=== PATIENT | male | born 1935 | race Caucasian/White ===

== ENCOUNTER 2018-08-14 18:35 | Inpatient (IN) ==
--- OUTSIDE RECORDS SUMMARY | 2018-08-14 18:38 | External Medical Summary | Continuity of Care Document ---
:1935 Author Name Akash Funez Address Unavailable Unavailable , Care Team Providers Name Role Phone Damir Funez Unavailable [email or web address] Unavailable Unavailable Unavailable Unavailable Unavailable Assessments Assessed Problems:Cerumen impaction Problems Cerumen impaction (380.4) (H61.20) Allergies and Adverse Reactions No Known Drug Allergies (Allergy) Medications RisperDAL 0.5 MG Oral Tablet Start: Refills: 0 Atenolol 25 MG Oral Tablet Start: Refills: 0 Pravastatin Sodium 20 MG Oral Tablet; TAKE 1 TABLET DAILY. Start: 16-Mar-2012 Refills: 0 Aspirin Low Dose 81 MG TABS; TAKE 1 TABLET DAILY. Start: 16-Mar-2012 Refills: 0 Procedures Procedures not documented Immunizations Td On: 10-Dec-1993 Td On: 23-Jul-2005 Social History - Smoking Status Current every day smoker Interventions Discussion/SummaryBilateral cerumen impaction irrigated and resolved. The right TM does have a clear effusion with air-fluid levels. Not concerning for otitis media at this time. Possible eustachian tube dysfunction. Patient is to monitor symptoms and follow-up his hearing does not improve. His also follow up sooner ifyou're pain develops or hearing issues worsen. Plan of Treatment Planned Observations Planned Goals not documented Results No Known Results Results not documented Encounters Appointment; Guero Reich M.D. 13-Aug-2014 15:00 Encounter Diagnosis: Problem not documented
--- NOTE | 2018-08-14 19:32 | XRay Report ---
XR chest 1V portable CLINICAL HISTORY: agitation COMPARISON STUDY: 04/17/2013 FINDINGS: The heart is enlarged. There is aortic tortuosity/ectasia. There is mild vascular prominenc e without evidence of overt failure. There is a suspected small right pleural effusion.[ IMPRESSION: Mild cardiomegaly. Small right pleural effusion. No evidence of lobar consolidation. Electronically signed by: Francisco Maher M.D. 08/14/2018 7:30 PM
[2018-08-14 19:44] LABS: Basophils # (auto) 0.04 K/uL (0-0.2); Basophils % (auto) 0.6 %; Eosinophils # (auto) 0.14 K/uL (0-0.5); Eosinophils % (auto) 2.2 %; Hematocrit (blood only) 36.8 % (42-52); Hemoglobin 11.9 g/dL (14.0-18.0); Immature Granulocytes # (auto) 0.02 K/uL (0.00-0.02); Immature Granulocytes % (auto) 0.3 %; Lymphocytes # (auto) 1.01 K/uL (1.2-3.4); Lymphocytes % (auto) 16.1 %; Mean Corpuscular Hgb Conc 32.3 g/dL (32-36); Mean Corpuscular Volume 85.4 fL (80-100); Mean Platelet Volume 11.8 fL (7.4-10.4); Monocytes # (auto) 0.59 K/uL (0.11-0.59); Monocytes % (auto) 9.4 %; Neutrophils # (auto) 4.48 K/uL (1.4-6.5); Neutrophils % (auto) 71.4 %; Platelet Count 174 K/uL (130-400); RDW Coefficient of Variation 15.3 % (11.5-14.5); RDW Standard Deviation 48.4 fL (36.4-46.3); Red Blood Count 4.31 M/uL (4.7-6.1); White Blood Count 6.28 K/uL (4.8-10.8)
--- NOTE | 2018-08-14 19:54 | CT Scan Report ---
CT head/brain wo con CLINICAL HISTORY: agitation ACUTE CHANGE IN MENTAL STATUS, CONFUSION. COMPARISON STUDY: No previous studies for comparison. TECHNIQUE: Axial CT of the brain is performed from the vertex to the skull base. IV contrast was not administered for this examination. A dose lowering technique was utilized adhering to the principles of ALARA. CT DOSE: 630.32 mGycm FINDINGS: No intra or extra-axial mass lesions are visualized. There is no CT evidence of acute cortical infarc tion. There is no evidence of midline shift. There is no acute hemorrhage. No calvarial fractures ar e visualized. There are bilateral extensive white matter hypodensities likely on a small vessel basis. 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 There is no evidence of acute sinusitis. There are left scleral calcifications. IMPRESSION: No acute intracranial findings Electronically signed by: Francisco Maher M.D. 08/14/2018 7:53 PM
[2018-08-14 20:02] LABS: Alanine Aminotransferase 7 U/L (12-78); Albumin Level 3.4 gm/dl (3.4-5.0); Aspartate Aminotransferase 8 U/L (15-37); BUN Creatinine Ratio 13.6 (10-20); Blood Urea Nitrogen 13 mg/dl (7-18); Calcium 8.1 mg/dl (8.5-10.1); Carbon Dioxide 29 mmol/L (21-32); Chloride 108 mmol/L (98-107); Est GFR (African American) 87.8; Est GFR (Non-African American) 75.7; Glucose 105 mg/dl (70-99); Potassium 3.8 mmol/L (3.5-5.1); Sodium 140 mmol/L (136-145)
[2018-08-14 20:10] LABS: Salicylate < 1.7 mg/dl (2.8-20)
[2018-08-14 20:12] LABS: Albumin Globulin Ratio 0.9 (0.9-2); Alkaline Phosphatase 102 U/L (45-117); Bilirubin,Total 0.7 mg/dl (0.2-1); Globulin 3.8 gm/dl (2.5-4.0); Total Protein 7.2 gm/dl (6.4-8.2)
[2018-08-14 20:15] LABS: Acetaminophen < 2 ug/ml (10-30)
[2018-08-14 20:42] LABS: Appearance Urine Clear (Clear); Bacteria Urine Automated Negative (Negative); Bilirubin Urine Negative (Negative); Blood Urine Negative (Negative); Color Urine Dark Yellow; Glucose Urine UA Negative (Negative); Ketones Urine Trace (Negative); Leukocyte Esterase Urine Negative (Negative); Nitrite Urine Negative (Negative); Protein Urine Trace (Negative); RBC Urine Automated 0-4 /hpf (0-4); Specific Gravity Urine 1.028 (1.000-1.030); Urobilinogen Urine Negative (Negative); pH Urine 6.5 (4.5-7.5)
[2018-08-14 20:57] LABS: Amphetamines+Metham, Urine Neg (Neg); Barbiturates, Urine Neg (Neg); Benzodiazepine, Urine Pos (Neg); Cocaine, Urine Neg (Neg); MDMA (Ecstacy), Urine Neg (Neg); Methadone, Urine Neg (Neg); Opiate, Urine Neg (Neg); Phencyclidine, Urine Neg (Neg)
[2018-08-14] MEDS ORDERED: HALOPERIDOL LACTATE 5 MG/ML 1 ML VIAL IM STA (23:27)
[2018-08-14] MEDS ORDERED: HALOPERIDOL LACTATE 5 MG/ML 1 ML VIAL IM PRN (23:42)
[2018-08-14] MEDS ORDERED: ALBUT/IPRATROP 3MG/0.5MG NEB 3 ML VIAL NEB PRN (23:42)
--- NOTE | 2018-08-15 00:02 | Emergency Department Note ---
Entered by Koffi Beltran acting as a scribe for Chintan Grajeda M.D. History of Present Illness General Chief complaint: Mental Health Evaluation Stated complaint: MHID Source: EMS and RN notes reviewed Limitations: altered mental status (dementia) History of Present Illness Provider complaint: Mental Health Evaluation Onset (ago): unknown Location: left and right Relieved By: + none Associated symptoms: + confusion Treatments prior to arrival: other (2.5 Versed IM) The patient is a 82 year old male with a history of dementia and COPD who presents to the Emergency Room for a mental health evaluation. Patient's called the help line due to the patient becoming combative and going to the bathroom in different areas of the house. The patient's expressed concern that the patient was going to hurt her. The sates that she does not feel comfortable at home with him due to his fits of rage. Per EMS, the patient was given 2.5 Versed IM en route. The HPI is limited due to AMS. The patient states that he "wants someone to kill" him. Home Medications Home Medications Medication Instructions Recorded Confirmed Type risperidone 0.25 mg PO BID 08/14/18 08/14/18 History Allergies Allergy/AdvReac Type Severity Reaction Status Date / Time barley Allergy Severe ANAPHYLAXIS Verified 08/14/18 20:23 donepezil Allergy Unknown Unknown Verified 08/14/18 20:23 Past Med/Surg History Medical History COPD (chronic obstructive pulmonary disease) Dementia Social History Feels Safe at Home: Yes Smoking Status: Unknown if ever smoked Review of Systems See HPI for pertinent positives & negatives. Unobtainable due to mental health condition Physical Exam Vital Signs Vital Signs - 24 hr 08/14/18 18:42 08/14/18 20:24 08/14/18 22:33 Temperature 37 C Temperature Source Axillary Sepsis Recent Fever Within 48 Hours No Sepsis Action Taken by Nursing No Action Required Pulse Rate 98 H Pulse Rate [Radial] 74 74 Pulse Rhythm Regular Pulse Rhythm [Radial] Regular Regular Pulse Strength Normal Respiratory Rate 22 16 16 Respiratory Effort / Characteristics Non-Labored Spontaneous Non-Labored Non-Labored Respiratory Depth Normal Normal Normal Respiratory Pattern Regular Regular Regular Blood Pressure 159/89 H Blood Pressure [Right Arm] 156/89 H 162/98 H Blood Pressure Mean 112 Blood Pressure Mean [Right Arm] 111 119 Blood Pressure Position Lying Pulse Oximetry 98 99 99 Oxygen Delivery Method Room Air Room Air Room Air GENERAL: Awake, alert but not oriented, limited verbal interaction, repositioning in bed, in no distress. PSYCH: Patient asking for someone to kill him, patient refused further questions. HENT: Normocephalic, atraumatic. EYES: PERRL. Normal conjunctiva. Sclera non-icteric. NECK: Supple. No nuchal rigidity. RESPIRATORY: Clear to auscultation. No wheezes. Normal respiratory effort. CARDIAC: Normal rate. Normal rhythm. Extremities warm and well perfused. GI: Soft, non-distended. No tenderness to palpation. No rebound or guarding. RECTAL: Deferred. MUSCULOSKELETAL: Atraumatic. Chest examination reveals no tenderness. There is no CVA tenderness to palpation. LOWER EXTREMITIES: Calves are equal size bilaterally and non-tender. No edema NEURO: No motor deficits noted. No facial droop. SKIN: Warm and dry. No jaundice noted. Scattered moles and keloids on back Course 1843: The patient was evaluated in room A07. A complete history and physical exam were not able to be obtained due to AMS. 2136: I discussed the patients case [facility]. He will evaluate the patient for further management. Consultations Consultation #1: [id number]: I discussed the patients case with Dr. Caridad Hay. He will evaluate the patient for further management. Time: 21:37 Administered Medications Discontinued Medications Haloperidol Lactate (Haldol) 2.5 mg IM NOW STA Stop: 08/14/18 23:28 Last Admin: 08/14/18 23:30 Dose: 2.5 mg Documented by: [id number] Medical Decision Making Differential Diagnosis Differential diagnosis: Etiologies such as mood disorder, infection, hypoglycemia, electrolyte abnormalities, cardiac sources, intracerebral event, toxicologic, neurologic, as well as others were entertained. Medical Records Attestation: I reviewed the patient's medical records. Home Medications Current Medication List: was personally reviewed by me Laboratory Data Attestation: I reviewed the patient's lab results. Result diagrams: 08/14/18 19:27 08/14/18 19:27 Lab Results 08/14/18 08/14/18 08/14/18 Range/Units 19:27 19:27 19:27 WBC 6.28 (4.8-10.8) K/uL RBC 4.31 L (4.7-6.1) M/uL Hgb 11.9 L (14.0-18.0) g/dL Hct 36.8 L (42-52) % MCV 85.4 (80-100) fL MCH 27.6 (25-34) pg MCHC 32.3 (32-36) g/dL RDW Std Deviation 48.4 H (36.4-46.3) fL RDW Coeff of Dk 15.3 H (11.5-14.5) % Plt Count 174 (130-400) K/uL MPV 11.8 H (7.4-10.4) fL Immature Gran % (Auto) 0.3 % Neut % (Auto) 71.4 % Lymph % (Auto) 16.1 % Woodson % (Auto) 9.4 % Eos % (Auto) 2.2 % Baso % (Auto) 0.6 % Immature Gran # (Auto) 0.02 (0.00-0.02) K/uL Neut # (Auto) 4.48 (1.4-6.5) K/uL Lymph # (Auto) 1.01 L (1.2-3.4) K/uL Woodson # (Auto) 0.59 (0.11-0.59) K/uL Eos # (Auto) 0.14 (0-0.5) K/uL Baso # (Auto) 0.04 (0-0.2) K/uL Sodium 140 (136-145) mmol/L Potassium 3.8 (3.5-5.1) mmol/L Chloride 108 H (98-107) mmol/L Carbon Dioxide 29 (21-32) mmol/L Anion Gap 3.0 (3-11) BUN 13 (7-18) mg/dl Creatinine 0.94 (0.6-1.4) mg/dl Est Cr Clr Drug Dosing Not Reportable Est GFR ( Amer) 87.8 Est GFR (Non-Af Amer) 75.7 BUN/Creatinine Ratio 13.6 (10-20) Glucose 105 H (70-99) mg/dl Calcium 8.1 L (8.5-10.1) mg/dl Total Bilirubin 0.7 (0.2-1) mg/dl AST 8 L (15-37) U/L ALT 7 L (12-78) U/L Alkaline Phosphatase 102 (45-117) U/L Total Protein 7.2 (6.4-8.2) gm/dl Albumin 3.4 (3.4-5.0) gm/dl Globulin 3.8 (2.5-4.0) gm/dl Albumin/Globulin Ratio 0.9 (0.9-2) TSH 1.450 (0.300-4.500) uIu/ml Urine Color Urine Appearance (Clear) Urine pH (4.5-7.5) Ur Specific [place] (1.000-1.030) Urine Protein (Negative) Urine Glucose (UA) (Negative) Urine Ketones (Negative) Urine Blood (Negative) Urine Nitrite (Negative) Urine Bilirubin (Negative) Urine Urobilinogen (Negative) Ur Leukocyte Esterase (Negative) Urine WBC (Auto) (0-5) /hpf Urine RBC (Auto) (0-4) /hpf U Hyaline Cast (Auto) (0-5) /lpf U Epithel Cells (Auto) (0-5) /lpf Urine Bacteria (Auto) (Negative) Salicylates < 1.7 L (2.8-20) mg/dl Urine Opiates Screen (Neg) Ur Methadone, Qual (Neg) Acetaminophen < 2 L (10-30) ug/ml Urine Barbiturates (Neg) Ur Phencyclidine (PCP) (Neg) U Amphetamin/Meth Scrn (Neg) MDMA (Ecstasy) Screen (Neg) U Benzodiazepines Scrn (Neg) Ur Cocaine Metabolite (Neg) U Marijuana (THC) Screen (Neg) Ethyl Alcohol mg/dL (0-3) mg/dl 08/14/18 08/14/18 08/14/18 Range/Units 19:27 20:19 20:19 WBC (4.8-10.8) K/uL RBC (4.7-6.1) M/uL Hgb (14.0-18.0) g/dL Hct (42-52) % MCV (80-100) fL MCH (25-34) pg MCHC (32-36) g/dL RDW Std Deviation (36.4-46.3) fL RDW Coeff of Dk (11.5-14.5) % Plt Count (130-400) K/uL MPV (7.4-10.4) fL Immature Gran % (Auto) % Neut % (Auto) % Lymph % (Auto) % Woodson % (Auto) % Eos % (Auto) % Baso % (Auto) % Immature Gran # (Auto) (0.00-0.02) K/uL Neut # (Auto) (1.4-6.5) K/uL Lymph # (Auto) (1.2-3.4) K/uL Woodson # (Auto) (0.11-0.59) K/uL Eos # (Auto) (0-0.5) K/uL Baso # (Auto) (0-0.2) K/uL Sodium (136-145) mmol/L Potassium (3.5-5.1) mmol/L Chloride (98-107) mmol/L Carbon Dioxide (21-32) mmol/L Anion Gap (3-11) BUN (7-18) mg/dl Creatinine (0.6-1.4) mg/dl Est Cr Clr Drug Dosing Est GFR ( Amer) Est GFR (Non-Af Amer) BUN/Creatinine Ratio (10-20) Glucose (70-99) mg/dl Calcium (8.5-10.1) mg/dl Total Bilirubin (0.2-1) mg/dl AST (15-37) U/L ALT (12-78) U/L Alkaline Phosphatase (45-117) U/L Total Protein (6.4-8.2) gm/dl Albumin (3.4-5.0) gm/dl Globulin (2.5-4.0) gm/dl Albumin/Globulin Ratio (0.9-2) TSH (0.300-4.500) uIu/ml Urine Color Dark Yellow Urine Appearance Clear (Clear) Urine pH 6.5 (4.5-7.5) Ur Specific [place] 1.028 (1.000-1.030) Urine Protein Trace H (Negative) Urine Glucose (UA) Negative (Negative) Urine Ketones Trace H (Negative) Urine Blood Negative (Negative) Urine Nitrite Negative (Negative) Urine Bilirubin Negative (Negative) Urine Urobilinogen Negative (Negative) Ur Leukocyte Esterase Negative (Negative) Urine WBC (Auto) 1-5 (0-5) /hpf Urine RBC (Auto) 0-4 (0-4) /hpf U Hyaline Cast (Auto) 1-5 (0-5) /lpf U Epithel Cells (Auto) 5-10 H (0-5) /lpf Urine Bacteria (Auto) Negative (Negative) Salicylates (2.8-20) mg/dl Urine Opiates Screen Neg (Neg) Ur Methadone, Qual Neg (Neg) Acetaminophen (10-30) ug/ml Urine Barbiturates Neg (Neg) Ur Phencyclidine (PCP) Neg (Neg) U Amphetamin/Meth Scrn Neg (Neg) MDMA (Ecstasy) Screen Neg (Neg) U Benzodiazepines Scrn Pos H (Neg) Ur Cocaine Metabolite Neg (Neg) U Marijuana (THC) Screen Neg (Neg) Ethyl Alcohol mg/dL < 3.0 (0-3) mg/dl Imaging Data Radiologist's Impression: Radiology results as stated below per my review and the radiologist's interpretation: XR chest 1V portable CLINICAL HISTORY: agitation COMPARISON STUDY: 04/17/2013 FINDINGS: The heart is enlarged. There is aortic tortuosity/ectasia. There is mild vascular prominence without evidence of overt failure. There is a suspected small right pleural effusion.[ IMPRESSION: Mild cardiomegaly. Small right pleural effusion. No evidence of lobar consolidation. Electronically signed by: Francisco Maher M.D. 08/14/2018 7:[address] head/brain wo con CLINICAL HISTORY: agitation ACUTE CHANGE IN MENTAL STATUS, CONFUSION. COMPARISON STUDY: No previous studies for comparison. TECHNIQUE: Axial CT of the brain is performed from the vertex to the skull base. IV contrast was not administered for this examination. A dose lowering technique was utilized adhering to the principles of ALARA. CT DOSE: 630.32 mGycm FINDINGS: No intra or extra-axial mass lesions are visualized. There is no CT evidence of acute cortical infarction. There is no evidence of midline shift. There is no acute hemorrhage. No calvarial fractures are visualized. There are bilateral extensive white matter hypodensities likely on a small vessel basis. 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 There is no evidence of acute sinusitis. There are left scleral calcifications. IMPRESSION: No acute intracranial findings Electronically signed by: Francisco Maher M.D. 08/14/2018 7:53 PM ECG Data Indication: altered mental status Rate (beats per minute): 100 Rhythm: normal sinus Findings: + PAC, + PVC and + RBBB; no ST depression and no ST elevation Blood Pressure Blood Pressure Findings: Elevated blood pressure Blood Pressure Disposition: further management by hospitalist SUE Narrative Patient is an 82-year-old gentleman presenting via a commitment due to actions at home and threats towards his . Can help was involved in the outpatient setting as well as police and EMS. Received a dose of Versed prior to arrival for mild sedation for his and EMS safety for transport. Patient is a history of Alzheimer's disease that has been worsening. No underlying psychiatric history has been reported. Patient has an additional medical history of COPD, c holecystectomy, carotid endarterectomy, cataract surgery, hypertension, and hyperlipidemia. Has been on Risperdal. Over the last several months significant decline urinating and defecating around the house. Fits of rage at home will tear up the bed and make threats towards his . states she does not feel she can care for him anymore and felt somewhat scared today. Patient on my exam states that he wants somebody to kill himself. Does not appear oriented but is limiting discussion here. No significant evidence of trauma. Medical clearance was completed including EKG, chest x-ray, head CT, urinalysis, basic laboratory studies. Psychiatric [employer] assisted in evaluation again the patient was priorly evaluated by can bailey. Patient's is here to provide additional information as well. Appears the patient has been declining and no acute medical reason for this size worsening dementia has been noted. Given his worsening behavior does not not safe to go home. Patient will require inpatient treatment for this worsening agitation and likely placement. Family is in agreement with the placement. Discussed with [employer] [employer] as well as the [facility] list. Will be admitted overnight with plans for further evaluation and placement. Impression & Plan Dementia, Agitation Discharge Plan Visit Data Chief Complaint: Mental Health Evaluation Stated Complaint: MHID ED Provider: Chintan Grajeda Discharge Problem: Dementia, Agitation Patient Disposition: Admitted As Inpatient Discharge Instructions Interventions: ED Discharge Assessment Last Done: 08/14/18 23:25 Discharge Problem: Dementia Qualifiers: Dementia type: unspecified type Dementia behavioral disturbance: with behavioral disturbance Qualified Code(s): F03.91 - Unspecified dementia with behavioral disturbance The scribe's documentation has been prepared under my direction and personally reviewed by me in its entirety. I confirm that the note above accurately reflects all work, treatment, procedures, and medical decision making performed by me.
--- NOTE | 2018-08-15 00:17 | History and Physical Report ---
DATE OF ADMISSION: 08/14/2018 CHIEF COMPLAINT: Dementia and agitation. HISTORY OF PRESENT ILLNESS: This is an 82-year-old male with past medical history significant for COPD, hyperlipidemia, hypertension, arthritis, anxiety, dementia, who lives with his , brought in because of increasing agitation at home. Patient has dementia for last 8 years, it is getting progressively worsened. The last few months he is getting more worse, getting agitated at home. used to shave his suarez and help him clean up, but he is not listening to her. As per daughter, last few months he is incontinent of urine and stool. He is defecating and urinating all over the house. cleans up everything and he is not listening when advised to go to commode. Laely, his appetite is also coming down. He just wants to eat cookies. Otherwise he swallows okay. No recent fever or chills. Daughter and say that he is otherwise very healthy. Patient is alert and awake, oriented to name only. Keeps on talking about his dad. He does not know his age, does know his 's name. Could not get any history from the patient.As per and daughter he is getting weak lately and ambulating holding things in the house. ALLERGIES: ADHESIVES. PAST MEDICAL HISTORY: As mentioned above. PAST SURGICAL HISTORY: Colonoscopy with biopsy, cataract surgery, laparoscopic cholecystectomy, right carotid endarterectomy. MEDICATIONS: Risperdal 2.5 mg p.o. b.i.d. FAMILY HISTORY: Mother had cervical cancer. Father had DC, diabetes. Sister had cerebral aneurysm. SOCIAL HISTORY: , currently lives with his . Smoked 0.75 packs a day for 25 years. As per records, no history of alcohol abuse. No drug use. REVIEW OF SYMPTOMS: As per HPI. Could not get any review of systems. PHYSICAL EXAMINATION: GENERAL: The patient is alert and awake, oriented to name only. Confused. VITAL SIGNS: Temperature 37, pulse 74, respiratory rate 16, blood pressure 162/98, oxygen 99% on room air. HEENT: No pallor, no icterus. NECK: No neck masses. CARDIOVASCULAR: S1, S2 heard. Regular rate and rhythm, no murmur, no gallop. RESPIRATORY SYSTEM: Normal AP diameter. No accessory muscle use. No wheezing, no crackles. ABDOMEN: Soft, bowel sounds present. Nontender. No distention. CENTRAL NERVOUS SYSTEM: Oriented to name only. Moves extremities. EXTREMITIES: No edema, no erythema seen. LABORATORIES: WBC 6.2, hemoglobin 11.9, hematocrit 36.8, platelets 174. Sodium 140, potassium 3.8, chloride 108, bicarbonate 29, BUN 13, creatinine 0.9, serum glucose 105, calcium 8.1, total bilirubin 0.7, AST 8, ALT 7, alkaline phosphatase 102. TSH 1.4. Urinalysis negative. Toxicology screen, salicylate less than 1.7, acetaminophen less than 2, positive for benzodiazepines. Ethyl alcohol less than 3. IMAGING DATA: Chest x-ray, small right pleural effusion. No evidence for lobar consolidation. CT of the head, no acute findings seen. EKG: Sinus rhythm with PVCs at a rate of 100, QTC 497. Bifascicular block. ASSESSMENT AND PLAN: This is an 82-year-old male who presents with dementia ongoing for the last 8 years, who comes in with worsening dementia and agitation at home. 1. Worsening dementia and agitation at home. Lives with , who is not able to take care of him anymore. He is not listening and gets agitated when given any instructions to clean him up. He is incontinent and defecating and urinating everywhere in the house and also appetite is coming down. His ambulatory status is also declining. He is now walking, holding things in the house. The lives in the house, daughter lives one and a half hours away. Family requests for placement possibly in dementia unit. Continue his home dose of Risperdal and placed him on IV Haldol p.r.n. EKG, his QTC is 497, we will monitor for any QT prolongation with repeat EKGs and consult psych for further recommendations. Social service to help with discharge plan. Follow his vitamin B12 and vitamin B1 levels. 2. History of chronic obstructive pulmonary disease. Currently not on any medications. Currently patient seems stable. We will place him on DuoNebs p.r.n. 3. Hypertension, not on any medication. Will monitor his blood pressure. 4. Deep venous thrombosis prophylaxis, sequential compression devices. DISPOSITION: Admit to medical floor. Expect to discharge to dementia unit when available. Social service to help with discharge planning. Code status, DNR/DNI as per my discussion with the family. KENNEDY
[2018-08-15] MEDS: risperiDONE 1 MG/ML SOLUTION PO SCH ×3 (00:20→21:19)
[2018-08-15 05:47] LABS: Basophils # (auto) 0.02 K/uL (0-0.2); Basophils % (auto) 0.3 %; Eosinophils # (auto) 0.09 K/uL (0-0.5); Eosinophils % (auto) 1.3 %; Hematocrit (blood only) 38.6 % (42-52); Hemoglobin 12.9 g/dL (14.0-18.0); Immature Granulocytes # (auto) 0.03 K/uL (0.00-0.02); Immature Granulocytes % (auto) 0.4 %; Lymphocytes # (auto) 0.67 K/uL (1.2-3.4); Lymphocytes % (auto) 9.5 %; Mean Corpuscular Hgb Conc 33.4 g/dL (32-36); Mean Corpuscular Volume 83.7 fL (80-100); Mean Platelet Volume 11.3 fL (7.4-10.4); Monocytes # (auto) 0.76 K/uL (0.11-0.59); Monocytes % (auto) 10.8 %; Neutrophils # (auto) 5.48 K/uL (1.4-6.5); Neutrophils % (auto) 77.7 %; Platelet Count 163 K/uL (130-400); RDW Coefficient of Variation 15.2 % (11.5-14.5); RDW Standard Deviation 46.5 fL (36.4-46.3); Red Blood Count 4.61 M/uL (4.7-6.1); White Blood Count 7.05 K/uL (4.8-10.8)
[2018-08-15 06:22] LABS: BUN Creatinine Ratio 11.4 (10-20); Blood Urea Nitrogen 10 mg/dl (7-18); Calcium 8.7 mg/dl (8.5-10.1); Carbon Dioxide 27 mmol/L (21-32); Chloride 108 mmol/L (98-107); Est GFR (African American) 90.1; Est GFR (Non-African American) 77.7; Glucose 124 mg/dl (70-99); Magnesium 2.2 mg/dl (1.8-2.4); Potassium 4.2 mmol/L (3.5-5.1); Sodium 140 mmol/L (136-145)
[2018-08-15 07:23] LABS: Folate (Folic Acid) 14.63 ng/ml (>5.38)
--- NOTE | 2018-08-15 09:10 | Hospitalist Progress Note ---
Date of Service August 15, 2018 Assessment & Plan (1) Dementia: (2) Agitation: (3) COPD (chronic obstructive pulmonary disease): (4) HTN (hypertension): 82-year-old male with past medical history significant for COPD, hyperlipidemia, hypertension, arthritis, anxiety, dementia, who lives with his , brought in because of increasing agitation at home. Patient has dementia for last 8 years, it is getting progressively worse. The last few months he is getting more worse, getting agitated at home. used to shave his suarez and help him clean up, but he is not listening to her. As per daughter, last few months he is incontinent of urine and stool. He is defecating and urinating all over the house. cleans up everything and he is not listening when advised to go to commode. Lately, his appetite is also coming down. He just wants to eat cookies. Otherwise he swallows okay. No recent fever or chills. Daughter and say that he is otherwise very healthy. Patient is alert and awake, oriented to name only. Keeps on talking about his dad. He does not know his ag e, does know his 's name. Could not get any history from the patient.As per and daughter he is getting weak lately and ambulating holding things in the house. Placement in dementia unit BOWEN, Labs checked ROS-Offers no reliable ROS Physical Exam Gen-AAO x 1, NAD, Afebrile Head-NCAT, EOMI, PERRLA, Anicteric Sclera, No Posterior Pharyngeal Erythema Neck-Supple, No JVD, No Thyromegaly, No Masses, No LAD, No Bruits Lungs-Clear to Auscultation Bilaterally, No Rales, No Rhonchi, No Wheezing, No Crepitus Chest-No S4, +S1, +S2, No S3, No Murmurs, No Rubs, No Gallops, No Ectopy Abdomen-Soft, Bowel Sounds Present, Non Tender, Non Distended, No Hepatomegaly, No Splenomegaly, No Palpable Masses, No Rebound, No Rigidity, No Guarding Musculoskeletal-Full Range of Motion Bilaterally, No CVAT Extremities-No Cyanosis, No Clubbing, No Edema Nuero-Cranial Nerves II-XII grossly intact, Motor WNL, DTRs WNL, Strength WNL, Non Focal Psych-Anxious Results & Data Vital Signs (Past 12 Hours) Vital Signs Temp Pulse Pulse Pulse Resp BP BP 08/15/18 07:20 36.2 C L 97 H 20 139/95 08/15/18 06:18 88 131/79 08/15/18 04:01 93 H 20 129/93 08/15/18 00:31 90 22 08/14/18 23:25 78 16 162/98 H 08/14/18 22:33 74 16 BP Pulse Ox 08/15/18 07:20 98 08/15/18 06:18 08/15/18 04:01 99 08/15/18 00:31 204/129 H 97 08/14/18 23:25 99 08/14/18 22:33 162/98 H 99
--- NOTE | 2018-08-15 09:11 | Discharge Summary ---
Date of Service August 15, 2018 Admission HPI Per Admitting Provider 82-year-old male with past medical history significant for COPD, hyperlipidemia, hypertension, arthritis, anxiety, dementia, who lives with his , brought in because of increasing agitation at home. Patient has dementia for last 8 years, it is getting progressively worse. The last few months he is getting more worse, getting agitated at home. used to shave his suarez and help him clean up, but he is not listening to her. As per daughter, last few months he is incontinent of urine and stool. He is defecating and urinating all over the house. cleans up everything and he is not listening when advised to go to commode. Lately, his appetite is also coming down. He just wants to eat cookies. Otherwise he swallows okay. No recent fever or chills. Daughter and say that he is otherwise very healthy. Patient is alert and awake, oriented to name only. Keeps on talking about his dad. He does not know his age, does know his 's name. Could not get any history from the patient.As per and daughter he is getting weak lately and ambulating holding things in the house. Admission Exam Per Admitting Provider GENERAL: The patient is alert and awake, oriented to name only. Confused. VITAL SIGNS: Temperature 37, pulse 74, respiratory rate 16, blood pressure 162/98, oxygen 99% on room air. HEENT: No pallor, no icterus. NECK: No neck masses. CARDIOVASCULAR: S1, S2 heard. Regular rate and rhythm, no murmur, no gallop. RESPIRATORY SYSTEM: Normal AP diameter. No accessory muscle use. No wheezing, no crackles. ABDOMEN: Soft, bowel sounds present. Nontender. No distention. CENTRAL NERVOUS SYSTEM: Oriented to name only. Moves extremities. EXTREMITIES: No edema, no erythema seen. Principal Diagnosis Progressive Dementia COPD HTN OA HLD Anxiety Incontinent of Urine and Stool Discharge Exam ROS-Offers no reliable ROS Physical Exam Gen-AAO x 1, NAD, Afebrile Head-NCAT, EOMI, PERRLA, Anicteric Sclera, No Posterior Pharyngeal Erythema Neck-Supple, No JVD, No Thyromegaly, No Masses, No LAD, No Bruits Lungs-Clear to Auscultation Bilaterally, No Rales, No Rhonchi, No Wheezing, No Crepitus Chest-No S4, +S1, +S2, No S3, No Murmurs, No Rubs, No Gallops, No Ectopy Abdomen-Soft, Bowel Sounds Present, Non Tender, Non Distended, No Hepatomegaly, No Splenomegaly, No Palpable Masses, No Rebound, No Rigidity, No Guarding Musculoskeletal-Full Range of Motion Bilaterally, No CVAT Extremities-No Cyanosis, No Clubbing, No Edema Nuero-Cranial Nerves II-XII grossly intact, Motor WNL, DTRs WNL, Strength WNL, Non Focal Psych-Anxious Discharge Data Allergies Allergy/AdvReac Type Severity Reaction Status Date / Time barley Allergy Severe ANAPHYLAXIS Verified 08/14/18 20:23 donepezil Allergy Unknown Unknown Verified 08/14/18 20:23 Consultations 08/14/18 21:38 ED Decision to Admit Stat 08/14/18 23:42 Consult Case Management - Discharge Planning Routine 08/15/18 08:00 Consult Psychiatry Routine Ordered Studies 08/14/18 18:37 CT head/brain wo con Stat Current Diagnoses Unspecified dementia without behavioral disturbance (08/14/18) Essential (primary) hypertension (08/14/18) Chronic obstructive pulmonary disease, unspecified (08/14/18) Restlessness and agitation (08/14/18) Allergies barley Allergy (Severe, Verified 08/14/18 20:23) ANAPHYLAXIS donepezil Allergy (Unknown, Verified 08/14/18 20:23) Unknown Height/Weight/Isolation Weight 73.3 kg Chemistry 08/14/18 08/15/18 19:27 05:28 Sodium 140 140 Potassium 3.8 4.2 Chloride 108 H 108 H Carbon Dioxide 29 27 Anion Gap 3.0 5.0 BUN 13 10 Creatinine 0.94 0.92 Glucose 105 H 124 H Urinalysis 08/14/18 20:19 Urine Color Dark Yellow Urine Appearance Clear Urine pH 6.5 Ur Specific Nabb 1.028 Urine Protein Trace H Urine Glucose (UA) Negative Urine Ketones Trace H Urine Blood Negative Urine Nitrite Negative Urine Bilirubin Negative Hospital Course (1) Dementia: (2) Agitation: (3) COPD (chronic obstructive pulmonary disease): (4) HTN (hypertension): Placement in dementia unit BOWEN, Labs checked Total Time Total Time Spent Total Time Spent (In Minutes): 45 mins Total Time Includes: Examination of the Patient, Discharge Planning, Medication Reconciliation and Communication With Other Providers Discharge Plan Discharge Items Patient Disposition: Transfer Behavioral Health Fac Reason For Visit: WORSENING DEMENTIA WITH AGITATION Discharge Diagnosis: Progressive Dementia COPD HTN OA HLD Anxiety Incontinent of Urine and Stool Condition: Fair Discharge Goals: Improve function Activity: As commented below Activity Comment: Fall Risk Lifting: None Bathing: No limitations Weightbearing: Left weightbearing and Right weightbearing Non-emergency contact: Primary Care Provider Call non-emergency contact if: you have any medication questions Follow-up/Referrals: PCP,NO [Primary Care Provider] - Diet: Regular and Finger Foods Addtl Provider Instructions: Routine follow up Prescriptions: Continued risperidone 1 mg/mL Solution 0.25 mg PO BID RF: 0 Stand-Alone Forms: [employer] Discharge Orders: Discharge Order (Routine); Ordered 08/15/18 Ordered By: Brenton Lin Skilled Items DNR: Yes Admission Data Admit Date/Time: 08/14/18 22:27 Attending Provider: Brenton Lin Admit Provider: Juan A Stahl Primary Care Provider: PCP,NO Other Providers: Juan A Stahl ; Rashmi Tomas Service: Medical Other Pending Studies at Discharge: No
[2018-08-15] MEDS: ACETAMINOPHEN 325 MG TAB PO PRN (12:00)
--- NOTE | 2018-08-15 12:02 | Psychiatric Consultation ---
Date of Consultation August 15, 2018 Impression / Recommendations Impression 82-year-old male admitted medically on 08/14/18 due to increased agitation and combative behavior at home. Pt was brought in on 302 warrant for evaluation, after had contacted [facility]. Pt was diagnosed with dementia 8 years ago, which has progressively worsened. Psychiatric evaluation was completed, and there is no known history of a primary psychiatric condition or indication from family or available records that patient has received any previous mental health treatment. Given diagnostic history, it is most likely that the patient's agitation and combative behavior is a result of his dementia or other medical concern, rather than a psychiatric disorder. Based on this, most appropriate discharge plan would be for a locked dementia unit that would be able to provide for patient's needs while ensuring his safety. As there is no evidence of past or present psychiatric history, there is no criteria for admission to an inpatient geripsych/psychiatric facility. Pt is not able to be involuntarily committed to such a unit, as his behaviors are related to a primary medical condition of dementia. From a mental health standpoint, patient is psychiatrically cleared for transfer to a facility that could better manage his long-term needs. Regarding medication recommendations, there is evidence of QTc prolongation 497 (08/14/18) and 518 (08/15/18). As antipsychotic medications increase risk of QTc prolongation, would highly recommend use of these agent be reserved for acute management of behavior that has high potential for harm to patient or others. There are limited records available, and it is therefore difficult to determine if this prolongation is long-standing or acute. Agents less likely to affect QTc are also agents that tend to be less-potent in their antipsychotic capabil ities. If there is continued need to utilize prn antipsychotic medications to manage agitation, would suggest cardiology consultation to assess risks and benefits of continued use of risperidone and prn haloperidol. Discussion would need to be had to review these risk further with patient's primary decision- maker. Other was of managing patient's behavior can be utilized as well, including: frequent re-orientation to person/place/time/event, allowing objects and visitors familiar to the patient to be present in his room, keeping room well-lit during the day and dark in the evenings to promote normal sleep/wake patterns, avoiding deliriogenic medications, and clear explanations of procedures and steps for ADLs. Dr. Rashmi Tomas was directly involved in review and discussion of the patient's case and participated in medical decision making regarding treatment recommendations. (1) Agitation: 08/15 - Would suggest cardiology consultation if there is ongoing need to utilize antipsychotic medications to manage agitated behavior; QTc already prolonged at 497 (08/14/18) and 518 (08/15/18) - Recommend continued serial EKGs - Risks and benefits would need to be discussed with patient's primary decision-maker regarding possibility of further prolongation and risk of Torsades - Could attempt to gather additional outpatient records to determine if QTc prolongation is chronic or acute, to further determine level of risk associated with ongoing use of antipsychotics (2) Dementia: 08/15 - Pt is considered psychiatrically cleared for transfer to a facility that can adequate manage patient's with dementia - Pt cannot be involuntarily committed to an inpatient psychiatric facility, as there is no primary psychiatric condition to explain his agitation - Continue supportive care with delirium/dementia care recommendations outlined above. CPT Code Initial Consultation: 72921 Psych History Identifying Data 82-year-old male admitted medically on 08/14/18 on a 302 warrant due to agitation and combative behavior. It was reported that had called [facility] due to feeling uncomfortable with the patient's behaviors and a warrant was issued for mental health evaluation. Pt has a PMH significant for COPD, HTN, and chronic dementia history. Psychiatric consultation was requested to assess "dementia with agitation." Information at time of this assessment is gathered from previous documentation and the patient's STRADDLE BUGGY OPERATOR, as he is unable to provide reliable information. Chief Complaint "...Good..." History of Present Illness Michael Gillespie is an 82-year-old male admitted medially on 08/14/18 due to increased agitation at home. It is reported that the patient had become combative and made verbal threats to harm the after he was incontinent in various areas around the house. Pt's reportedly felt unsafe with the patient's behavior and had called [facility], which issued a 302 warrant to bring the patient in for mental health evaluation. Upon presentation to the ED, it is reported that the patient had expressed desire for "someone to kill him." Pt does have a diagnosis of dementia, which is reported to be progressively worsening for the past 8 years. Agitation at home has begun in the last month and he has been more combative with his , who continues to care for his needs within their home. Per H&P, there is no known history of any psychiatric treatment. There is no reported history of inpatient psychiatric treatment. Psychiatric cons ultation is requested for recommendations regarding his agitation. QTc is 497 (08/14/18) and 518 (08/15/18). Home dose of risperidone 0.25mg BID has been continued. Haloperidol prn is ordered as well for acute agitation. 302 petitioning statement was completed by the patient's - warrant issued by [facility] as felt unsafe with patient's agitated behavior. 302 petition is difficult to read, per grooming salon manager it states: Michael has changed (to scare me) but doesn't slap me. He messes his pants won't do anything. I can't get him to let me help. At nights 4 times a wk. he yells, throws pillows and say he'll cut my head off--the he tears the bed apart and I go to sleep (?sofa). Now when I say he did these things it is worse--threats are not going. This man, my quickly got mean so I need some help to help me feel safe. He won't hit me. Ok--we are OK--No we are not wanting to see him feel better. Threats are not scared but his condition changes abruptly. I need some intelligence to help me and Michael. He is my . I love him. Angelique agitation has increased, threatened and I feel unsafe with him. This is so sad for me! At time of this provider's assessment, the patient appears to be seated comfortably in a bed-side chair, eating his lunch. Pt was ordered a safety try, and is eating with assistance from his STRADDLE BUGGY OPERATOR. Pt does not appear irritable or agitated at this time. Pt only minimally participates in conversation with this provider, only responding with "yes", "no", "good", "fine", and "thank you." Pt was asked if he was experiencing any discomfort and safety concerns - which he denied. Pt denied thought to harm himself or others. He denies any current irritable or angry thoughts. Pt denies other questions at this time. MARYCARMEN, who has been with patient for the morning, states he was a bit irritable earlier today - refusing breakfast and spitting some food on her. He was reportedly unwilling to utilize a bed-side urinal, and has been walking to the bathroom with assistance from STRADDLE BUGGY OPERATOR and rolling walker. Pt did not verbalize any present concerns. Past Psychiatric History Previous Psych History: There is no known previous psychiatric history. No history provided to indicate that patient has received treatment for a psychiatric condition or has ever been hospitalized on an inpatient behavioral health unit. No known suicide attempts or agitated behavior outside of the context of dementia. According to previous records, patient has been on risperidone 0.5mg daily since at least 2013, with dementia diagnosis being present at that time as well. Current Psychiatric Diagnosis: None reported Previous Psych Admissions: None reported Past Medication Trials: Per available documentation: 1. Risperidone - 0.5mg daily scheduled 2. Haloperidol - 1-2.5mg daily (ordered from anxiety/agitation during inpatient hospitalizations) Allergies Allergy/AdvReac Type Severity Reaction Status Date / Time barley Allergy Severe ANAPHYLAXIS Verified 08/14/18 20:23 donepezil Allergy Unknown Unknown Verified 08/14/18 20:23 Home Medications Home Medications Medication Instructions Recorded Confirmed Type risperidone 0.25 mg PO BID 08/14/18 08/14/18 History Family History Unable to obtain from patient Substance Abuse History Unable to obtain from patient Personal History Living Arrangements: Home (with in [place], [place]) Employment Status: Retired Marital Status: History of Legal Problems: No known history of legal problems Patient History Medical History Dementia (Acute) COPD (chronic obstructive pulmonary disease) Social History Preferred Language: Nepali Communication Ability: Impaired Current Living Situation: Spouse Current Living Situation Comment: cares for pt at home and is no longer able to care for him Feels Safe at Home: Yes Smoking Status: Former smoker Smoking End Date: uncertain, no family in room, pt agitated and confused Physical Exam Psychiatric: Orientation: alert and oriented to person; + not oriented to place and + not oriented to time pt does respond when is name is stated, otherwise unable to participate in orientation questions Apperance: appropriately dressed (in hospital gown), appropriately groomed and appeared stated age Eye Contact: + poor eye contact (staring down at lunch tray) Motor Behavior: + tremor (coarse hand tremor observed while attempting to feed himself) seated comfortably in chair next to bed, motor behavior is visibly slowed Hesitation prior to responding to questions, responses are brief and vague - "good", "fine", and "thank you" Affect: + flat affect; no depressed affect, no anxious affect and no labile affect Mood: no irritable mood and no angry mood "Good" Difficult to adequately assess thought content as limited participation in evaluation, no perceived paranoia or delusions Suicidal Thoughts: denies suicidal thoughts Homicidal Thoughts: denies homicidal thoughts Pt does not appear to be responding to internal stimuli Cognition: + recent memory not intact and + remote memory not intact Greatly inhibited by severity of dementia, limited ability to participate in interview Insight: + severely impaired insight Judgement: + severely impaired judgement Vital Signs (Past 24 Hours): Last Vital Signs Temp 36.2 C L 08/15/18 07:20 Pulse 97 H 08/15/18 07:20 Resp 20 08/15/18 07:20 BP 139/95 08/15/18 07:20 Pulse Ox 98 08/15/18 07:20 Review of Systems Unable to adequately gather reliable review of systems due to severity of patient's dementia/AMS Results & Data Medications Administered Risperidone (Risperidone) 0.25 mg PO BID JALEN Stop: 09/14/18 00:14 Last Admin: 08/15/18 09:46 Dose: 0.25 mg Documented by: [id number] Admin: 08/15/18 00:20 Dose: 0.25 mg Documented by: [id number]
[2018-08-16] MEDS: risperiDONE 1 MG/ML SOLUTION PO SCH ×3 (09:26→22:14)
--- NOTE | 2018-08-16 11:26 | Hospitalist Progress Note ---
Date of Service August 16, 2018 Assessment & Plan (1) Dementia: (2) Agitation: (3) COPD (chronic obstructive pulmonary disease): (4) HTN (hypertension): Awaiting Placement in dementia unit, No labs for tomorrow, Add Cardizem CD 120, Psych on case. ROS-Offers no reliable ROS Physical Exam Gen-AAO x 1, NAD, Afebrile Head-NCAT, EOMI, PERRLA, Anicteric Sclera, No Posterior Pharyngeal Erythema Neck-Supple, No JVD, No Thyromegaly, No Masses, No LAD, No Bruits Lungs-Clear to Auscultation Bilaterally, No Rales, No Rhonchi, No Wheezing, No Crepitus Chest-No S4, +S1, +S2, No S3, No Murmurs, No Rubs, No Gallops, No Ectopy Abdomen-Soft, Bowel Sounds Present, Non Tender, Non Distended, No Hepatomegaly, No Splenomegaly, No Palpable Masses, No Rebound, No Rigidity, No Guarding Musculoskeletal-Full Range of Motion Bilaterally, No CVAT Extremities-No Cyanosis, No Clubbing, No Edema Nuero-Cranial Nerves II-XII grossly intact, Motor WNL, DTRs WNL, Strength WNL, Non Focal Psych-Anxious Results & Data Vital Signs (Past 12 Hours) Vital Signs Temp Pulse Resp BP BP Pulse Ox 08/16/18 10:06 35.9 C L 98 H 18 153/104 H 145/104 H 96
[2018-08-16] MEDS: dilTIAZem HCL 120 MG CAPCR PO SCH (12:34)
--- NOTE | 2018-08-16 18:43 | Consultation Report ---
DATE OF CONSULTATION: 08/16/2018 CONSULTATION REQUESTED BY: Dr. Lin. REASON FOR CONSULTATION: QT prolongation and the need for centrally acting medications. HISTORY OF PRESENT ILLNESS: The patient is a severely demented 82-year-old gentleman who was brought into [facility] on 08/14/2018 after his dementia progressed and his is no longer able to care for him at home. He is reportedly very agitated and not following his 's directions. He is reportedly incontinent of urine and stool and does not use the commode as directed by his and his family reports that he is otherwise very healthy. Currently, the patient is nonverbal. Nursing reports times of agitation; however, he appears calm at this time and no symptoms have been voiced by the patient to nursing. He has been started on centrally acting medications including Risperdal and Haldol for his agitation. His QT prolonged on an EKG and Cardiology is asked to evaluate him. The patient was not able to respond to questions. History obtained through review of medical records. PAST SURGICAL HISTORY: 1. Right carotid endarterectomy. 2. Cataract surgery. 3. Colonoscopies. 4. Cholecystectomy. MEDICAL ILLNESSES: 1. Progressive severe dementia with agitation. 2. Hypertension. 3. Carotid stenosis, status post carotid endarterectomy. 4. Claudication. 5. Anxiety. 6. COPD. FAMILY HISTORY: Noncontributory. SOCIAL HISTORY: The patient is a lifelong smoker. No alcohol or drug use reported. Currently lives at home with his who is admitted now for need of placement likely to a Dementia Unit. REVIEW OF SYSTEMS: Unobtainable given the patient's current mental status. ALLERGIES: MEDICATIONS: Currently: 1. Risperidone. 2. Diltiazem 120 mg daily. 3. Haldol p.r.n. PHYSICAL EXAMINATION: VITALS: Temperature 36.4, pulse 82, respiratory rate 12, blood pressure 168/100. GENERAL: Awake. The patient is not alert and oriented x0, no acute distress, not responding to questions. HEENT: Normocephalic, atraumatic. Pupils equal, round, reactive to light and accommodation. Extraocular muscles intact. Anicteric sclerae. Moist mucous membranes. NECK: No JVD, no bruit. CARDIOVASCULAR: Regular, but distant. Unable to appreciate murmurs, rubs or gallops. PULMONARY: Clear to auscultation bilaterally. No rales, rhonchi or wheezing. ABDOMEN: Bowel sounds x4, soft. No rebound, guarding, tenderness. No organomegaly. EXTREMITIES: No clubbing, cyanosis or edema. +2 pedal pulses bilaterally. SKIN: Warm and dry. 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 IMPRESSION: 1. Slight QT prolongation after started on centrally acting medications. 2. Severe dementia with agitation, no longer able to be cared for at home. 3. Carotid stenosis, status post carotid endarterectomy. 4. Hypertension. 5. Hyperlipidemia. RECOMMENDATIONS: It was my pleasure to see the patient in consultation today. Given the current clinical context, I would not limit any psychiatric medications from a cardiac standpoint. Obviously, I believe the overall goal here would be for to help diminish the patient's agitation and believe the benefits of those medications that help curb this outweigh the risk, so no other cardiac testing will be ordered at this time and no medication changes will be made, but again I would not restrict his psychiatric medications. KENNEDY
[2018-08-17] MEDS: ACETAMINOPHEN 325 MG TAB PO PRN (03:16)
[2018-08-17] MEDS: risperiDONE 1 MG/ML SOLUTION PO SCH ×2 (08:33→21:39)
[2018-08-17] MEDS: dilTIAZem HCL 120 MG CAPCR PO SCH (08:33)
--- NOTE | 2018-08-17 12:49 | Hospitalist Progress Note ---
Date of Service August 17, 2018 Assessment & Plan (1) HTN (hypertension): Blood pressure is fluctuating. BP this morning 178/106. Started on diltiazem. Follow and titrate therapy. (2) COPD (chronic obstructive pulmonary disease): Pulmonary status stable. (3) Dementia: Progressive cognitive dysfunction. 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 B12, folic acid, TSH normal. No metabolic abnormalities. Dementia may be secondary to vascular dementia and/or Alzheimer's disease. Start aspirin. (4) Do not resuscitate status: Code status DNR as instructed by family. (5) DVT prophylaxis: SCDs ordered. Transition to SQ enoxaparin. (6) Discharge planning issues: Family no longer able to take care of the patient at home due to his progressive dementia with behavioral difficulties. Case Management consulted to assist with management. Family Medicine follow-up with Dr. Billings. Subjective Recheck for dementia and other problems. Patient seen in their room around 10:40. Doing well. Pleasantly confused. No problems reported by nursing staff. Review of Systems (questionable reliability due to dementia): Constitutional- no fever. Cardiac- no chest pain. Pulmonary- no cough or SOB. GI- no nausea, vomiting, diarrhea, melena, hematochezia. - no urinary symptoms. Otherwise, as noted above. Physical Exam Constitutional: no acute distress Eyes: + eyes dysmorphic (L exotropia) Respiratory: no respiratory distress Auscultation: lungs clear to auscultation bilaterally Cardiovascular: Rate/Rhythm: regular rate and regular rhythm Heart Sounds: no gallop, no murmur and no cardiac rub Vessels: no JVD Extremities: no calf tenderness and no edema Gastrointestinal (Abdomen): normal bowel sounds, soft, nontender, no hepatosplenomegaly Skin: no rashes, warm and dry Psychiatric: Orientation: alert and oriented to person; + not oriented to place and + not oriented to time Results & Data Vital Signs (Past 12 Hours) Vital Signs Temp Pulse Resp BP Pulse Ox 08/17/18 11:34 98 08/17/18 08:17 36.3 C L 92 H 20 178/106 H 93
[2018-08-17 13:12] LABS: 7-Aminoclonaz, Confirm NEGATIVE NG/ML (CUTOFF=25); Hydro-Alp Ur, GC/MS NEGATIVE NG/ML (CUTOFF=25); Hydroxyethylflurazepam, Conf NEGATIVE NG/ML (CUTOFF=50); Hydroxytriazolam NEGATIVE NG/ML (CUTOFF=50); Lorazepam, Ur GC/MS NEGATIVE NG/ML (CUTOFF=50); Nordiazepam, Confirm NEGATIVE NG/ML (CUTOFF=50); Oxazepam Ur, GC/MS NEGATIVE NG/ML (CUTOFF=50); Temazepam, Confirm NEGATIVE NG/ML (CUTOFF=50)
[2018-08-17] MEDS ORDERED: PATIENT'S HEIGHT NEEDED SCH (13:30)
[2018-08-17 14:29] LABS: INR 1.1 (0.9-1.1); Partial Thromboplastin Time 27.3 Seconds (21.0-31.0); Prothrombin Time 11.4 Seconds (9.0-12.0)
[2018-08-17] MEDS: ENOXAPARIN INJ 40 MG/0.4 ML SYR SQ SCH (21:39)
[2018-08-18] MEDS: ASPIRIN 81 MG ECTAB PO SCH ×2 (08:52→09:37)
[2018-08-18] MEDS: AMLODIPINE BESYLATE 5 MG TAB PO SCH ×2 (08:52→09:37)
[2018-08-18] MEDS: risperiDONE 1 MG/ML SOLUTION PO SCH ×3 (08:54→21:10)
--- NOTE | 2018-08-18 17:37 | Hospitalist Progress Note ---
Date of Service August 18, 2018 Assessment & Plan (1) HTN (hypertension): Blood pressures fluctuating, but improved. BP this morning 111/68. Continue amlodipine. Follow and titrate therapy. (2) COPD (chronic obstructive pulmonary disease): Pulmonary status stable. (3) Dementia: Progressive cognitive dysfunction. 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 On low dose risperidone for severe agitation. FDA warnings and prolonged QTc noted, but benefits appear to outweigh the risks at this time. Folic acid and TSH normal. B12 borderline low- supplement. B1 low- supplement. Dementia may be secondary to vascular dementia and/or Alzheimer's disease. Start aspirin. (4) Do not resuscitate status: Code status DNR as instructed by family. (5) DVT prophylaxis: SQ enoxaparin. Ambulate. (6) Discharge planning issues: Family no longer able to take care of the patient at home due to his progressive dementia with behavioral difficulties. Case Management consulted to assist with management. Family Medicine follow-up with Dr. Billings. Subjective Recheck for dementia and other problems. Patient seen in their room around 11:40. Pleasantly confused. Fair appetite. No new problems reported by staff. Review of Systems (questionable reliability due to dementia): Constitutional- no fever. Cardiac- no chest pain. Pulmonary- no cough or SOB. GI- no nausea, vomiting, diarrhea, melena, hematochezia. - urinary incontinence at times. Otherwise, as noted above. Physical Exam Constitutional: no acute distress Eyes: + eyes dysmorphic (L exotropia) Respiratory: no respiratory distress Auscultation: lungs clear to a uscultation bilaterally Cardiovascular: Rate/Rhythm: regular rate and regular rhythm Heart Sounds: no gallop, no murmur and no cardiac rub Vessels: no JVD Extremities: no calf tenderness and no edema Gastrointestinal (Abdomen): normal bowel sounds, soft, nontender, no hepatosplenomegaly Skin: no rashes, warm and dry Psychiatric: Orientation: alert and oriented to person; + not oriented to place and + not oriented to time Results & Data Vital Signs (Past 12 Hours) Vital Signs Temp Pulse Resp BP Pulse Ox 08/18/18 15:11 84 18 115/79 98 08/18/18 06:00 36.1 C L 79 18 111/68 96 Laboratory Results Laboratory Results - last 24 hr 08/15/18 10:55 Vitamin B1 6 L
[2018-08-18] MEDS: ENOXAPARIN INJ 40 MG/0.4 ML SYR SQ SCH (20:49)
[2018-08-19] MEDS: THIAMINE HCL 100 MG TAB PO SCH (09:02)
[2018-08-19] MEDS: AMLODIPINE BESYLATE 5 MG TAB PO SCH (09:02)
[2018-08-19] MEDS: CYANOCOBALAMIN 500 MCG TABLET (VITAMIN B-12) PO SCH (09:02)
[2018-08-19] MEDS: ASPIRIN 81 MG ECTAB PO SCH (09:02)
[2018-08-19] MEDS: risperiDONE 1 MG/ML SOLUTION PO SCH ×2 (09:03→21:57)
--- NOTE | 2018-08-19 18:55 | Hospitalist Progress Note ---
Date of Service August 19, 2018 Assessment & Plan (1) HTN (hypertension): Blood pressures fluctuating, but improved. BP this morning 140/69. Continue amlodipine. Follow and titrate therapy. (2) COPD (chronic obstructive pulmonary disease): Pulmonary status stable. (3) Dementia: Progressive cognitive dysfunction. 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 On low dose risperidone for severe agitation. FDA warnings and prolonged QTc noted, but benefits appear to outweigh the risks at this time. Folic acid and TSH normal. B12 borderline low- supplement. B1 low- supplement. Dementia may be secondary to vascular dementia and/or Alzheimer's disease. Start aspirin. (4) Do not resuscitate status: Code status DNR as instructed by family. (5) DVT prophylaxis: SQ enoxaparin. Ambulate. (6) Discharge planning issues: Family no longer able to take care of the patient at home due to his progressive dementia with behavioral difficulties. Case Management consulted to assist with management. Family Medicine follow-up with Dr. Billings. Subjective Recheck for dementia and other problems. Patient seen in their room around 13:50. Confused. Did not eat much lunch. Patient does not offer any complaints. Review of Systems Review of Systems: Unobtainable due to cognitive status Physical Exam Constitutional: no acute distress Eyes: + eyes dysmorphic (L exotropia) Respiratory: no respiratory distress Auscultation: lungs clear to auscultation bilaterally Cardiovascular: Rate/Rhythm: regular rate and regular rhythm Heart Sounds: no gallop, no murmur and no cardiac rub Vessels: no JVD Extremities: no calf tenderness and no edema Gastrointestinal (Abdomen): normal bowel sounds, soft, nontender, no hepatosplenomegaly Skin: no rashes, warm and dry Psychiatric: Orientation: alert and oriented to person; + not oriented to place and + not oriented to time
[2018-08-19] MEDS: ENOXAPARIN INJ 40 MG/0.4 ML SYR SQ SCH (21:59)
[2018-08-20 05:46] LABS: Mean Corpuscular Hgb Conc 33.6 g/dL (32-36)
[2018-08-20 05:56] LABS: Hematocrit (blood only) 36.6 % (42-52); Hemoglobin 12.3 g/dL (14.0-18.0); Mean Corpuscular Volume 83.9 fL (80-100); RDW Coefficient of Variation 15.3 % (11.5-14.5); RDW Standard Deviation 47.2 fL (36.4-46.3); Red Blood Count 4.36 M/uL (4.7-6.1); White Blood Count 6.92 K/uL (4.8-10.8)
[2018-08-20 06:18] LABS: Mean Platelet Volume 11.8 fL (7.4-10.4); Platelet Count 141 K/uL (130-400); Platelet Estimate Decreased (Normal)
[2018-08-20 06:27] LABS: Calcium 8.7 mg/dl (8.5-10.1); Creatinine Clr Calc Pharmacy 70.7 ml/min; Est GFR (African American) 94.7; Est GFR (Non-African American) 81.7; Potassium 3.7 mmol/L (3.5-5.1)
[2018-08-20] MEDS: THIAMINE HCL 100 MG TAB PO SCH (07:28)
[2018-08-20] MEDS: risperiDONE 1 MG/ML SOLUTION PO SCH ×2 (07:28→20:36)
[2018-08-20] MEDS: CYANOCOBALAMIN 500 MCG TABLET (VITAMIN B-12) PO SCH (07:28)
[2018-08-20] MEDS: AMLODIPINE BESYLATE 5 MG TAB PO SCH (07:28)
[2018-08-20] MEDS: ASPIRIN 81 MG ECTAB PO SCH (07:28)
--- NOTE | 2018-08-20 19:31 | Hospitalist Progress Note ---
Date of Service August 20, 2018 Assessment & Plan (1) HTN (hypertension): Blood pressures fluctuating, but improved. BP this morning 147/91. Continue amlodipine. Follow and titrate therapy. (2) COPD (chronic obstructive pulmonary disease): Pulmonary status stable. (3) Dementia: Progressive cognitive dysfunction. 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 On low dose risperidone for severe agitation. FDA warnings and prolonged QTc noted, but benefits appear to outweigh the risks at this time. Folic acid and TSH normal. B12 borderline low- supplement. B1 low- supplement. Dementia may be secondary to vascular dementia and/or Alzheimer's disease. Start aspirin. (4) Do not resuscitate status: Code status DNR as instructed by family. (5) DVT prophylaxis: SQ enoxaparin. Ambulate. (6) Discharge planning issues: Family no longer able to take care of the patient at home due to his progressive dementia with behavioral difficulties. Case Management consulted to assist with management. Family Medicine follow-up with Dr. Billings. Son visiting this afternoon. He indicates that family did not see any apparent benefit when risperidone was started a few weeks ago at home. Hesitant to increase risperidone dose in light of QTc; will try to taper it. Subjective Recheck for dementia and other problems. Patient seen in their room around 10:40. Confused. Appetite fair. No new problems reported by nursing staff. Patient does not offer any complaints. Physical Exam Constitutional: no acute distress Eyes: + eyes dysmorphic (L exotropia) Respiratory: no respiratory distress Auscultation: lungs clear to auscul tation bilaterally Cardiovascular: Rate/Rhythm: regular rate and regular rhythm Heart Sounds: no gallop, no murmur and no cardiac rub Vessels: no JVD Extremities: no calf tenderness and no edema Gastrointestinal (Abdomen): normal bowel sounds, soft, nontender, no hepatosplenomegaly Skin: no rashes, warm and dry Psychiatric: Orientation: alert and oriented to person; + not oriented to place and + not oriented to time Results & Data Vital Signs (Past 12 Hours) Vital Signs Temp Pulse Resp BP Pulse Ox 08/20/18 11:15 36.4 C L 78 16 139/79 96 Laboratory Results Laboratory Results - last 24 hr 08/20/18 08/20/18 05:26 05:26 WBC 6.92 RBC 4.36 L Hgb 12.3 L Hct 36.6 L MCV 83.9 MCH 28.2 MCHC 33.6 RDW Std Deviation 47.2 H RDW Coeff of Dk 15.3 H Plt Count 141 MPV 11.8 H Platelet Estimate Decreased L Sodium 142 Potassium 3.7 Chloride 109 H Carbon Dioxide 24 Anion Gap 9.0 BUN 15 Creatinine 0.85 Est Cr Clr Drug Dosing 70.7 Est GFR ( Amer) 94.7 Est GFR (Non-Af Amer) 81.7 BUN/Creatinine Ratio 18.0 Glucose 100 H Calcium 8.7
[2018-08-20] MEDS: ENOXAPARIN INJ 40 MG/0.4 ML SYR SQ SCH (20:36)
[2018-08-21] MEDS: THIAMINE HCL 100 MG TAB PO SCH (08:26)
[2018-08-21] MEDS: CYANOCOBALAMIN 500 MCG TABLET (VITAMIN B-12) PO SCH (08:26)
[2018-08-21] MEDS: ASPIRIN 81 MG ECTAB PO SCH (08:26)
[2018-08-21] MEDS: AMLODIPINE BESYLATE 5 MG TAB PO SCH (08:26)
--- NOTE | 2018-08-21 14:56 | Hospitalist Progress Note ---
Date of Service August 21, 2018 Assessment & Plan (1) HTN (hypertension): Continue amlodipine. Follow and titrate therapy. (2) COPD (chronic obstructive pulmonary disease): Pulmonary status stable. (3) Dementia: Progressive cognitive dysfunction. 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 On low dose risperidone for severe agitation which was started several weeks ago as an outpatient. Family did not notice any obvious improvement after initiation of the risperidone. Dose tapered to 0.25 mg at bedtime. Folic acid and TSH normal. B12 borderline low- supplement. B1 low- supplement. Dementia may be secondary to vascular dementia and/or Alzheimer's disease. Started antiplatelet therapy with aspirin. (4) Do not resuscitate status: Code status DNR as instructed by family. (5) DVT prophylaxis: SQ enoxaparin. Ambulate. (6) Discharge planning issues: Family no longer able to take care of the patient at home. Anticipate need for jail care. Case Management consulted to assist with management. Family Medicine follow-up with Dr. Billings. Subjective Recheck for dementia and other problems. Patient seen in their room around 09:10. Ongoing confusion. No behavioral problems. Enjoying some cookies that family brought in. No new problems reported by nursing staff. Patient has no complaints. Physical Exam Constitutional: no acute distress Eyes: + eyes dysmorphic (L exotropia) Respiratory: no respiratory distress Auscultation: lungs clear to auscultation bilaterally Cardiovascular: Rate/Rhythm: regular rate and regular rhythm Heart Sounds: no gallop, no murmur and no cardiac rub Vessels: no JVD Extremities: no calf tenderness and no edema Gastrointestinal (Abdomen): normal bowel sounds, soft, nontender, no hepatosplenomegaly Skin: no rashes, warm and dry Psychiatric: Orientation: alert and oriented to person; + not oriented to place and + not oriented to time Results & Data Vital Signs (Past 12 Hours) Vital Signs Temp Pulse Resp BP Pulse Ox 08/21/18 07:09 36.4 C L 74 18 151/82 H 98
[2018-08-21] MEDS: ENOXAPARIN INJ 40 MG/0.4 ML SYR SQ SCH (21:01)
[2018-08-21] MEDS: risperiDONE 1 MG/ML SOLUTION PO SCH (21:02)
[2018-08-22] MEDS: AMLODIPINE BESYLATE 5 MG TAB PO SCH (08:18)
[2018-08-22] MEDS: CYANOCOBALAMIN 500 MCG TABLET (VITAMIN B-12) PO SCH (08:18)
[2018-08-22] MEDS: THIAMINE HCL 100 MG TAB PO SCH (08:19)
[2018-08-22] MEDS: ASPIRIN 81 MG ECTAB PO SCH (08:19)
[2018-08-22] MEDS: ACETAMINOPHEN 325 MG TAB PO PRN (15:35)
--- NOTE | 2018-08-22 19:33 | Hospitalist Progress Note ---
Date of Service August 22, 2018 Assessment & Plan (1) HTN (hypertension): Continue amlodipine. Follow and titrate therapy. (2) COPD (chronic obstructive pulmonary disease): Pulmonary status stable. (3) Dementia: Progressive cognitive dysfunction. 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 On low dose risperidone for severe agitation which was started several weeks ago as an outpatient. Family did not notice any obvious improvement after initiation of the risperidone. Dose tapered to 0.25 mg at bedtime; try to discontinue in 1-2 weeks. Folic acid and TSH normal. B12 borderline low- supplement. B1 low- supplement. Dementia may be secondary to vascular dementia and/or Alzheimer's disease. Started antiplatelet therapy with aspirin. (4) Do not resuscitate status: Code status DNR as instructed by family. (5) DVT prophylaxis: SQ enoxaparin. Ambulate. (6) Discharge planning issues: Family no longer able to take care of the patient at home. Anticipate need for alf care. Case Management consulted to assist with management. Family Medicine follow-up with Dr. Billings. Subjective Recheck for dementia and other problems. Patient seen in their room around 14:20. Ongoing confusion. Gets frustrated at times. Fair PO intake; enjoys cookies brought in by family. No new problems reported by nursing staff. Patient has no complaints. Physical Exam Constitutional: no acute distress Eyes: + eyes dysmorphic (L exotropia) Respiratory: no respiratory distress Auscultation: lungs clear to auscultation bilaterally Cardiovascular: Rate/Rhythm: regular rate and regular rhythm Heart Sounds: no gallop, no murmur and no cardiac rub Vessels: no JVD Extremities: no calf tenderness and no edema Gastrointestinal (Abdomen): normal bowel sounds, soft, nontender, no hepatosplenomegaly Skin: no rashes, warm and dry Psychiatric: Orientation: alert and oriented to person; + not oriented to place and + not oriented to time Results & Data Vital Signs (Past 12 Hours) Vital Signs Temp Pulse Resp BP Pulse Ox 08/22/18 15:03 36.7 C 77 20 129/85 97
[2018-08-22] MEDS: ENOXAPARIN INJ 40 MG/0.4 ML SYR SQ SCH ×2 (20:49→20:55)
[2018-08-22] MEDS: risperiDONE 1 MG/ML SOLUTION PO SCH ×2 (20:50→20:55)
[2018-08-23 05:48] LABS: Hematocrit (blood only) 35.3 % (42-52); Hemoglobin 11.8 g/dL (14.0-18.0); Mean Corpuscular Hgb Conc 33.4 g/dL (32-36); Mean Corpuscular Volume 83.8 fL (80-100); Mean Platelet Volume 11.8 fL (7.4-10.4); Platelet Count 143 K/uL (130-400); RDW Coefficient of Variation 15.3 % (11.5-14.5); RDW Standard Deviation 46.9 fL (36.4-46.3); Red Blood Count 4.21 M/uL (4.7-6.1); White Blood Count 4.96 K/uL (4.8-10.8)
[2018-08-23 06:18] LABS: Creatinine Clr Calc Pharmacy 73.3 ml/min; Est GFR (African American) 96.1; Est GFR (Non-African American) 82.9
[2018-08-23] MEDS: ASPIRIN 81 MG ECTAB PO SCH (08:02)
[2018-08-23] MEDS: AMLODIPINE BESYLATE 5 MG TAB PO SCH (08:02)
[2018-08-23] MEDS: CYANOCOBALAMIN 500 MCG TABLET (VITAMIN B-12) PO SCH (08:02)
[2018-08-23] MEDS: THIAMINE HCL 100 MG TAB PO SCH (08:02)
--- NOTE | 2018-08-23 08:51 | Hospitalist Progress Note ---
Date of Service August 23, 2018 Assessment & Plan (1) Dementia: Progressive cognitive dysfunction and agitation. 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 -On low dose risperidone for severe agitation which was started several weeks ago as an outpatient. -Family did not notice any obvious improvement after initiation of the risperidone --> Dose tapered to 0.25 mg at bedtime; try to discontinue in 1-2 weeks. -Folic acid and TSH normal. -B12 borderline low- supplement, B1 low- supplement started (2) HTN (hypertension): Elevated -Continue amlodipine. -Monitor (3) COPD (chronic obstructive pulmonary disease): -No signs of COPD exacerbation (4) Do not resuscitate status: -Code status DNR as instructed by family. (5) DVT prophylaxis: -SQ enoxaparin. -Ambulate. (6) Discharge planning issues: -Family no longer able to take care of the patient at home. -Anticipate need for [facility] care. -Case Management consulted to assist with management. -Family Medicine follow-up with Dr. Billings. Ok to discharge from medical point of view, awaiting placement in dementia unit Subjective Patient is disoriented x3. On and off with episodes of agitation, yelling. Unable to get much history from patient. Physical Exam Physical Exam: GENERAL-awake, alert, disoriented x3, calm but not to cooperative with exam NECK- Supple, no JVD LUNGS- Air entry bilaterally equal. No rales, rhonchi, crackles, wheezes heard. HEART- Regular rate and rhythm. No murmurs ABDOMEN- Soft, non tender, non distended, Bowel sounds heard. EXTREMITIES- Good peripheral pulses, no edema NEUROMUSCULAR-grossly moving all extremities Results & Data Vital Signs (Past 12 Hours) Vital Signs Temp Pulse Resp BP Pulse Ox 08/23/18 07:31 36.3 C L 74 18 185/82 H 91 08/22/18 23:00 36.4 C L 69 16 117/69 99
[2018-08-23] MEDS: risperiDONE 1 MG/ML SOLUTION PO SCH (20:12)
[2018-08-23] MEDS: ENOXAPARIN INJ 40 MG/0.4 ML SYR SQ SCH (20:13)
[2018-08-23] MEDS: OLANZapine 10 MG/2.1 ML SDV IM PRN (23:33)
[2018-08-24] MEDS: CYANOCOBALAMIN 500 MCG TABLET (VITAMIN B-12) PO SCH (07:49)
[2018-08-24] MEDS: AMLODIPINE BESYLATE 5 MG TAB PO SCH (07:49)
[2018-08-24] MEDS: ASPIRIN 81 MG ECTAB PO SCH (07:49)
[2018-08-24] MEDS: THIAMINE HCL 100 MG TAB PO SCH (07:49)
--- NOTE | 2018-08-24 15:59 | Hospitalist Progress Note ---
Date of Service August 24, 2018 Assessment & Plan (1) Dementia: Progressive cognitive dysfunction and agitation. 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 -On low dose risperidone for severe agitation which was started several weeks ago as an outpatient. -Family did not notice any obvious improvement after initiation of the risperidone --> Dose tapered to 0.25 mg at bedtime during this admission --> Will increase it back to 2.5 mg PO BID as requiring IM Zyprexa here and 1:1 observation for agitation -Folic acid and TSH normal. -B12 borderline low- supplement, B1 low - supplement started. (2) HTN (hypertension): Stable -Continue amlodipine. -Monitor (3) COPD (chronic obstructive pulmonary disease): -No signs of COPD exacerbation (4) Do not resuscitate status: -Code status DNR as instructed by family. (5) DVT prophylaxis: -SQ enoxaparin. -Ambulate. (6) Discharge planning issues: -Family no longer able to take care of the patient at home. -Anticipate need for [facility] care. -Case Management consulted to assist with management. -Family Medicine follow-up with Dr. Billnigs. Ok to discharge from medical point of view, awaiting placement in dementia unit Called to update- went into voice message Subjective Patient was agitated overnight requiring a dose of IM Zyprexa 2.5 mg and 1:1 o bservation. He continues to be agitated requiring one-to-one observation now Physical Exam Physical Exam: GENERAL-Disoriented x 3 NECK- Supple, no JVD LUNGS- Air entry bilaterally equal. No rales, rhonchi, crackles, wheezes heard. HEART- Regular rate and rhythm. No murmurs ABDOMEN- Soft, non tender, non distended, Bowel sounds heard. EXTREMITIES- Good peripheral pulses, no edema NEUROMUSCULAR-grossly moving all extremities Results & Data Vital Signs (Past 12 Hours) Vital Signs Temp Pulse Resp BP 08/24/18 14:58 36.4 C L 99 H 18 130/86
[2018-08-24] MEDS ORDERED: OLANZAPINE 2.5 MG TAB PO SCH (21:00)
[2018-08-24] MEDS: risperiDONE 1 MG/ML SOLUTION PO SCH (21:02)
[2018-08-24] MEDS: ENOXAPARIN INJ 40 MG/0.4 ML SYR SQ SCH (21:02)
[2018-08-25] MEDS: CYANOCOBALAMIN 500 MCG TABLET (VITAMIN B-12) PO SCH (08:04)
[2018-08-25] MEDS: risperiDONE 1 MG/ML SOLUTION PO SCH ×2 (08:04→21:30)
[2018-08-25] MEDS: ASPIRIN 81 MG ECTAB PO SCH (08:04)
[2018-08-25] MEDS: THIAMINE HCL 100 MG TAB PO SCH (08:04)
[2018-08-25] MEDS: AMLODIPINE BESYLATE 5 MG TAB PO SCH (08:04)
--- NOTE | 2018-08-25 10:28 | Hospitalist Progress Note ---
Date of Service August 25, 2018 Assessment & Plan (1) Dementia: Progressive cognitive dysfunction and agitation. 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 -Family did not notice any obvious improvement after initiation of the risperidone --> Dose tapered to 0.25 mg at bedtime during this admission --> Increased it back to 2.5 mg PO BID as requiring IM Zyprexa here and 1:1 observation for agitation. Will monitor response to increased dosing. 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 Folic acid and TSH normal. B12 borderline low- supplement, B1 low - supplement started. (2) HTN (hypertension): Stable -Continue amlodipine. -Monitor (3) COPD (chronic obstructive pulmonary disease): -No signs of COPD exacerbation (4) Do not resuscitate status: -Code status DNR as instructed by family. (5) DVT prophylaxis: -SQ enoxaparin. -Ambulate (6) Discharge planning issues: -Family no longer able to take care of the patient at home. -Anticipate need for assisted care. -Case Management consulted to assist with management. -Family Medicine follow-up with Dr. Awa Melvin to discharge from medical point of view, awaiting placement in dementia unit Subjective Patient continues to be under one-to-one observation. On and off episodes of agitation. Increased dosing of risperidone to twice daily yesterday. Did not require IM Zyprexa dose. Currently calm and comfortable with sitter by bedside. Physical Exam Physical Exam: Limited exam as not cooperative GENERAL-awake, alert, disoriented x3, calm but not to cooperative with exam LUNGS- Air entry bilaterally equal. No rales, rhonchi, crackles, wheezes heard. HEART- Regular rate and rhythm. No murmurs EXTREMITIES- No edema NEUROMUSCULAR-grossly moving all extremities Results & Data Vital Signs (Past 12 Hours) Vital Signs Pulse Resp BP Pulse Ox 08/25/18 07:04 68 16 137/90 99
--- NOTE | 2018-08-25 12:21 | Psychiatric Progress Note ---
Date of Service August 25, 2018 Impression / Recommendations Impression 82-year-old male admitted medically on 08/14/18 due to increased agitation and combative behavior at home. Pt was brought in on 302 warrant for evaluation, after had contacted [facility]. Pt was diagnosed with dementia 8 years ago, which has progressively worsened. Psychiatric evaluation was completed on 08/15/18 with recommendations for behavioral management, as his behaviors are most likely explained by his worsening dementia as there is no history of a primary psychiatric disorder. Pt was reassessed today upon request, as it is reported his agitation is worsening. Prior to this provider's assessment, primary attending had already suggested titrating patient's dose of risperidone. Although progress note reads dosing of 2.5mg BID - it is believed that this is an oversight, as the order reads 0.25mg BID (which is a more appropriate titration given patient's age and other contributing factors). It appears in documentation that the family may not have felt risperidone was an effective medication for the patient. Consider olanzapine 2.5mg as a replacement for scheduled risperidone - if this medication has shown more benefit in managing the patient's symptoms. It would also allow for consolidation to a single antipsychotic medication. As initial changes were recommended, will provide recommendations to primary team and allow for adjustments to his medication regimen as felt to be appropriate. We will continue to follow along with the patient. (1) Agitation: 08/15 - Would suggest cardiology consultation if there is ongoing need to utilize antipsychotic medications to manage agitated behavior; QTc already prolonged at 497 (08/14/18) and 518 (08/15/18) - Recommend continued serial EKGs - Risks and benefits would need to be discussed with patient's primary decision-maker regarding possibility of further prolongation and risk of Torsades - Could attempt to gather additional outpatient records to determine if QTc prolongation is chronic or acute, to further determine level of risk associated with ongoing use of antipsychotics 08/25 - Attending physician suggesting increase of risperidone to what is believed to be 0.25mg BID (progress notes read 2.5mg BID - which is believed to be an oversight as order reads 0.25mg BID) - If family/hospital staff feels risperidone is ineffective - could consider replacing with olanzapine 2.5mg - as tablet or even disintegrating (Zydis ODT) - Cardiology consulted on 08/16/18 due to concern for QTc prolongation, it was felt behavioral management was of greater priority, and agreed with continued use of antipsychotic medications as needed to manage moods - Continue behavioral management of agitation where appropriate - vigilance with addressing needs patient may be unable to address (toileting, pain assessments, thirst, hunger, etc); frequent re-orientation to person, place, time, and intervention; conserving usual sleep/wake cycle by encouraging activity during the day with lights on in room, lights off and blinds closed in the evenings; avoiding deliriogenic medications; and utilization of antipsychotics only as necessary to control behavior that may be a safety risk to patient or staff (2) Dementia: 08/15 - Pt is considered psychiatrically cleared for transfer to a facility that can adequate manage patient's with dementia - Pt cannot be involuntarily committed to an inpatient psychiatric facility, as there is no primary psychiatric condition to explain his agitation - Continue supportive care with delirium/dementia care recommendations outlined above. 08/25 - Again, patient's behaviors are not deemed to be consistent with a primary psychiatric disorder, given his lack of previous psychiatric history and 8-year diagnosis of dementia - Psychiatrically, patient is deemed to be cleared for transfer to the appropriate level of care to adequately manage his dementia-related symptoms - Recommend disposition of the 302 warrant - as patient cannot be involuntarily committed to an inpatient psychiatric facility, and now that psychiatric evaluation has been completed the warrant should be deemed invalid for use. Interval History Identifying Information 82-year-old male admitted medically on 08/14/18 on a 302 warrant due to agitation and combative behavior. It was reported that had called [facility] due to feeling uncomfortable with the patient's behaviors and a warrant was issued for mental health evaluation. Psychiatric consultation was requested to assess "dementia with agitation." Pt was seen on our service on 08/15/18 for initial consultation; he is seen today for requested re-evaluation due to worsening agitation. Chief Complaint "I am fine. I am full." Review of Systems Notes Pt unable to participate in productive review of systems. He does deny any current pain or other concerns. Subjective Subjective Pt was seen for initial psychiatric consultation on 08/15/18 and we have continued to follow his case since that time. Pt's case was reviewed and discussed during morning report with psychiatric nurse liaison. There was a requested called later this morning for our service to re-assess the patient due to reports of worsening agitation related to his dementia. Pt was seen for follow-up visit today. Upon assessment, the patient is found to be sitting upright in bed eating lunch with assistance from his 1:1. Pt states he is "good" and denies any concerns. He reports that he is "full" from lunch. The patient states he has been feeling good and "I've been good. Behaving." Pt was asked if he had any anxiety or irritability to which he responded, "no no no no no no no no no no no no no no" - until interrupted by this provider. When asked about his mood, the patient states, "I don't know, I can't really remember." He denies any pain presently and did not verbalize other needs. Physical Exam Psychiatric Orientation: alert When asked if this provider could assess mental status "ask you some silly questions" - patient responded "no" multiple times Apperance: appropriately groomed and appeared stated age; + inappropriately dressed (wearing white t-shirt, socks, a baseball hat and a [employer]) Visibly friable skin, arms covered with hematomas and bandages Eye Contact: + poor eye contact (very rarely making direct eye contact) though stares in the direction of this provider's voice Motor Behavior: + tremor (coarse hand tremor observed while attempting to feed himself) Speech: normal rate/rhythm/volume of speech (brief responses to questions) Affect: + flat affect; no depressed affect, no anxious affect and no labile affect Mood: no irritable mood and no angry mood Suicidal Thoughts: denies suicidal thoughts Homicidal Thoughts: denies homicidal thoughts Cognition: + recent memory not intact and + remote memory not intact Insight: + severely impaired insight Judgement: + severely impaired judgement Vital Signs (Past 24 Hours) Last Vital Signs Temp 36.4 C L 08/24/18 14:58 Pulse 68 08/25/18 07:04 Resp 16 08/25/18 07:04 BP 137/90 08/25/18 07:04 Pulse Ox 99 08/25/18 07:04 Results & Data Current Inpatient Medications Current Inpatient Medications: Current Inpatient Medications Acetaminophen (Tylenol) 650 mg PO Q4H PRN PRN Reason: pain/fever Stop: 09/13/18 23:41 Last Admin: 08/22/18 15:35 Dose: 650 mg Documented by: Albuterol (Duoneb) 3 ml NEB Q2H PRN PRN Reason: Shortness Of Breath Or Wheezing Stop: 09/13/18 23:41 Amlodipine Besylate ([facility]asc) [facility] Stop: 09/17/18 08:59 Last Admin: 08/25/18 08:04 Dose: 5 mg Documented by: Aspirin (Ecotrin Ectab) 81 [facility] [place] Stop: 09/17/18 08:59 Last Admin: 08/25/18 08:04 Dose: 81 mg Documented by: Cyanocobalamin (Vitamin B-12) 500 [facility]cg [facility] [place] Stop: 09/18/18 08:59 Last Admin: 08/25/18 08:04 Dose: 500 mcg Documented by: Enoxaparin Sodium (Lovenox) 40 mg SQ HS [facility] Stop: 09/16/18 20:59 Last Admin: 08/24/18 21:02 Dose: Not Given Documented by: Olanzapine (Zyprexa) 2.5 mg IM Q4H PRN PRN Reason: Anxiety/Agitation Stop: 09/22/18 23:11 Last Admin: 08/23/18 23:33 Dose: 2.5 mg Documented by: Risperidone (Risperidone) 0.25 mg PO BID [facility] Stop: 09/23/18 20:59 Last Admin: 08/25/18 08:04 Dose: 0.25 mg Documented by: Thiamine HCl (Vitamin B-1) [facility] Stop: 09/18/18 08:59 Last Admin: 08/25/18 08:04 Dose: 100 mg Documented by: CPT Code CPT Code 99065
[2018-08-25] MEDS: ENOXAPARIN INJ 40 MG/0.4 ML SYR SQ SCH (21:30)
[2018-08-26] MEDS: AMLODIPINE BESYLATE 5 MG TAB PO SCH (09:29)
[2018-08-26] MEDS: ASPIRIN 81 MG ECTAB PO SCH (09:29)
[2018-08-26] MEDS: risperiDONE 1 MG/ML SOLUTION PO SCH (09:30)
[2018-08-26] MEDS: THIAMINE HCL 100 MG TAB PO SCH (09:34)
[2018-08-26] MEDS: CYANOCOBALAMIN 500 MCG TABLET (VITAMIN B-12) PO SCH (09:35)
[2018-08-26 10:27] LABS: Hematocrit (blood only) 39.2 % (42-52); Hemoglobin 13.3 g/dL (14.0-18.0); Mean Corpuscular Hgb Conc 33.9 g/dL (32-36); Mean Corpuscular Volume 83.4 fL (80-100); Mean Platelet Volume 12.1 fL (7.4-10.4); Platelet Count 180 K/uL (130-400); RDW Coefficient of Variation 15.2 % (11.5-14.5); RDW Standard Deviation 46.2 fL (36.4-46.3); White Blood Count 7.46 K/uL (4.8-10.8)
[2018-08-26 10:40] LABS: Est GFR (African American) 93.8; Est GFR (Non-African American) 80.9
--- NOTE | 2018-08-26 11:00 | Hospitalist Progress Note ---
Date of Service August 26, 2018 Assessment & Plan (1) Dementia: Progressive cognitive dysfunction and agitation. 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 Family did not notice any obvious improvement after initiation of the risperidone --> Dose tapered to 0.25 mg at bedtime during this admission --> Increased it back to 2.5 mg PO BID as requiring IM Zyprexa here and 1:1 observation for agitation on 08/24. Not much response. Spoke to psychiatry- Will change to zyprexa 2.5 mg PO BID disintegrating tabs. Most likely will be seen by Geriatric psychiatrist over weekend. 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 Folic acid and TSH normal. B12 borderline low- supplement, B1 low - supplement started. -Monitor QTC- Cardiology was consulted regarding thispriority to be given to treatment for behavioral disturbances. Will order EKG to monitor QTC while changes in meds being made. (2) HTN (hypertension): Stable -Continue amlodipine. -Monitor (3) COPD (chronic obstructive pulmonary disease): -No signs of COPD exacerbation (4) Do not resuscitate status: -Code status DNR as instructed by family. (5) DVT prophylaxis: -SQ enoxaparin. -Ambulate (6) Discharge planning issues: -Family no longer able to take care of the patient at home. -Anticipate need for longterm care. -Case Management consulted to assist with management. -Family Medicine follow-up with Dr. Billings Awaiting dementia unit placement Subjective Patient continues to be under one-to-one observation. On and off episodes of agitation. Increased dosing of risperidone to twice daily on 08/24/18. Overall agitated Physical Exam Physical Exam: Limited exam as not cooperative GENERAL-awake, alert, disoriented x3, calm but not to cooperative with exam LUNGS- Air entry bilaterally equal. No rales, rhonchi, crackles, wheezes heard. HEART- Regular rate and rhythm. No murmurs EXTREMITIES- No edema NEUROMUSCULAR-grossly moving all extremities Results & Data Vital Signs (Past 12 Hours) Vital Signs Pulse Resp BP Pulse Ox 08/25/18 23:03 102 H 20 181/81 H 94
[2018-08-26] MEDS: OLANZAPINE 2.5 MG TAB PO SCH ×2 (21:17→21:27)
[2018-08-26] MEDS: ENOXAPARIN INJ 40 MG/0.4 ML SYR SQ SCH (21:18)
[2018-08-27] MEDS: AMLODIPINE BESYLATE 5 MG TAB PO SCH (08:32)
[2018-08-27] MEDS: ASPIRIN 81 MG ECTAB PO SCH (08:32)
[2018-08-27] MEDS: THIAMINE HCL 100 MG TAB PO SCH (08:33)
[2018-08-27] MEDS: CYANOCOBALAMIN 500 MCG TABLET (VITAMIN B-12) PO SCH (08:33)
[2018-08-27] MEDS: OLANZAPINE 2.5 MG TAB PO SCH ×2 (09:34→21:24)
--- NOTE | 2018-08-27 13:00 | Hospitalist Progress Note ---
Date of Service August 27, 2018 Assessment & Plan (1) Dementia: Progressive cognitive dysfunction and agitation. 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 Family did not notice any obvious improvement after initiation of the risperidone --> Dose tapered to 0.25 mg at bedtime during this admission --> Increased it back to 2.5 mg PO BID on 08/24. Not much response. Spoke to psychiatry on 08/26 - Will change to zyprexa 2.5 mg PO BID disintegrating tabs. Most likely will be seen by Geriatric psychiatrist over weekend. 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 Folic acid and TSH normal. B12 borderline low- supplement, B1 low - supplement started. -Monitor QTC- Cardiology was consulted regarding thispriority to be given to treatment for behavioral disturbances. Ordered a baseline EKG - 485 on 08/26/18 (avoid frequent EKGS as patient tends to get very agitated) (2) HTN (hypertension): Stable -Continue amlodipine. -Monitor (3) COPD (chronic obstructive pulmonary disease): -No signs of COPD exacerbation (4) Do not resuscitate status: -Code status DNR as instructed by family. (5) DVT prophylaxis: -SQ enoxaparin. -Ambulate (6) Discharge planning issues: -Family no longer able to take care of the patient at home. -Anticipate need for shelter care. -Case Management consulted to assist with management. -Family Medicine follow-up with Dr. Billings Awaiting dementia unit placement. Goal is to get him off 1:1 observation and IM Zyprexa Updated [place] over phone. Subjective Patient continues to be under one-to-one observation. On and off episodes of agitation, but doing better today. Received Zyprexa 2.5 mg first dose today AM Listening to music, had his breakfast, sitting comfortably at the edge of bed with sitter by bedside Physical Exam Physical Exam: Limited exam as patient is not cooperative. Tends to get very agitated if anyone touches GENERAL-awake, disoriented x3. Calm and comfortable today sitting at the edge of bed Results & Data Vital Signs (Past 12 Hours) Vital Signs Pulse Resp BP Pulse Ox 08/27/18 08:00 93 H 16 112/78 91
[2018-08-27] MEDS ORDERED: OLANZapine 10 MG/2.1 ML SDV IM STA (20:57)
[2018-08-27] MEDS: ENOXAPARIN INJ 40 MG/0.4 ML SYR SQ SCH (21:25)
[2018-08-28] MEDS: CYANOCOBALAMIN 500 MCG TABLET (VITAMIN B-12) PO SCH (09:50)
[2018-08-28] MEDS: THIAMINE HCL 100 MG TAB PO SCH (09:50)
[2018-08-28] MEDS: ASPIRIN 81 MG ECTAB PO SCH (09:50)
[2018-08-28] MEDS: OLANZAPINE 2.5 MG TAB PO SCH ×2 (10:31→20:06)
--- NOTE | 2018-08-28 17:25 | Hospitalist Progress Note ---
Date of Service August 28, 2018 Assessment & Plan (1) Dementia: Progressive cognitive dysfunction and agitation. H/O Dementia x 8 years- likely Alzheimer's - progressively worsening Intermittent agitation CT Head:No acute intracranial findings. 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 Monitor (3) COPD (chronic obstructive pulmonary disease): No signs of COPD exacerbation (4) Do not resuscitate status: Code status DNR/DNI (5) DVT prophylaxis: SQ Lovenox (6) Discharge planning issues: Family unable to take care of the patient at home. Case Management consulted to assist with Placement Family Medicine follow-up with Dr. Billings Awaiting dementia unit placement Subjective Patient is evaluated at bedside Sitter at bedside Patient is intermittently agitated as per staff Lying in bed comfortably this morning Refuses physical examination Denies any chest pain, shortness of breath No family at bedside Review of Systems Review of Systems: Unobtainable due to cognitive status Physical Exam Physical Exam: Patient refuses physical exam " Please leave me alone" Results & Data Vital Signs (Past 12 Hours) Vital Signs Pulse Resp BP Pulse Ox 08/28/18 07:43 71 20 118/81 96
[2018-08-28] MEDS: AMLODIPINE BESYLATE 5 MG TAB PO SCH (18:08)
[2018-08-28] MEDS: ENOXAPARIN INJ 40 MG/0.4 ML SYR SQ SCH (20:58)
[2018-08-29 05:58] LABS: Hematocrit (blood only) 34.6 % (42-52); Hemoglobin 11.4 g/dL (14.0-18.0); Mean Corpuscular Hgb Conc 32.9 g/dL (32-36); Mean Corpuscular Volume 85.6 fL (80-100); Mean Platelet Volume 12.4 fL (7.4-10.4); Platelet Count 167 K/uL (130-400); RDW Coefficient of Variation 15.5 % (11.5-14.5); RDW Standard Deviation 49.2 fL (36.4-46.3); Red Blood Count 4.04 M/uL (4.7-6.1)
[2018-08-29 06:33] LABS: Creatinine Clr Calc Pharmacy 69.8 ml/min; Est GFR (African American) 94.3; Est GFR (Non-African American) 81.3
[2018-08-29] MEDS: AMLODIPINE BESYLATE 5 MG TAB PO SCH ×2 (09:10→13:37)
[2018-08-29] MEDS: THIAMINE HCL 100 MG TAB PO SCH (09:10)
[2018-08-29] MEDS: CYANOCOBALAMIN 500 MCG TABLET (VITAMIN B-12) PO SCH (09:10)
[2018-08-29] MEDS: ASPIRIN 81 MG ECTAB PO SCH (09:10)
[2018-08-29] MEDS: OLANZAPINE 2.5 MG TAB PO SCH ×3 (09:10→21:09)
--- NOTE | 2018-08-29 16:27 | Hospitalist Progress Note ---
Date of Service August 29, 2018 Assessment & Plan (1) Dementia: Progressive cognitive dysfunction and agitation. H/O Dementia x 8 years- likely Alzheimer's - progressively worsening Intermittent agitation CT Head:No acute intracranial findings. 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 Monitor (3) COPD (chronic obstructive pulmonary disease): No signs of COPD exacerbation (4) Do not resuscitate status: Code status DNR/DNI (5) DVT prophylaxis: SQ Lovenox (6) Discharge planning issues: Family unable to take care of the patient at home. Case Management consulted to assist with Placement Family Medicine follow-up with Dr. Billings Awaiting dementia unit placement Subjective Patient is evaluated at bedside Sitter at bedside Continues to be agitated at times Sitting in bed this morning Denies any chest pain, shortness of breath Vitals stable No family at bedside Waiting for placement Review of Systems Review of Systems: Unobtainable due to cognitive status Physical Exam Physical Exam: Physical Exam: Vitals signs as noted above General Appearance:Moderately built and nourished, agitated intermittently Head: normocephalic, Atraumatic Eyes: normal inspection, EOMI Neck: supple, Trachea midline Respiratory/Chest: Normal breath sounds, CTA Cardiovascular: S1, S2, No murmur Abdomen/GI:Soft, Non tender, Bowel sounds present Extremities/Musculoskelatal:normal inspection, no edema Neurologic/Psych:grossly no focal neurological deficits Skin: normal color, warm Results & Data Vital Signs (Past 12 Hours) Vital Signs Temp Pulse Resp BP Pulse Ox 08/29/18 15:51 37.2 C 74 18 128/76 96 Laboratory Results Short CBC 08/29/18 Range/Units 05:27 WBC 5.70 (4.8-10.8) K/uL Hgb 11.4 L (14.0-18.0) g/dL Hct 34.6 L (42-52) % Plt Count 167 (130-400) K/uL [facility] 08/29/18 05:27 Creatinine 0.86
[2018-08-29] MEDS: ENOXAPARIN INJ 40 MG/0.4 ML SYR SQ SCH (21:02)
[2018-08-30] MEDS: OLANZAPINE 2.5 MG TAB PO SCH ×2 (08:59→21:58)
[2018-08-30] MEDS: CYANOCOBALAMIN 500 MCG TABLET (VITAMIN B-12) PO SCH (09:02)
[2018-08-30] MEDS: AMLODIPINE BESYLATE 5 MG TAB PO SCH (09:02)
[2018-08-30] MEDS: THIAMINE HCL 100 MG TAB PO SCH (09:02)
[2018-08-30] MEDS: ASPIRIN 81 MG ECTAB PO SCH (09:02)
--- NOTE | 2018-08-30 16:49 | Hospitalist Progress Note ---
Date of Service August 30, 2018 Assessment & Plan (1) Dementia: Progressive cognitive dysfunction and agitation. H/O Dementia x 8 years- likely Alzheimer's - progressively worsening Intermittent agitation CT Head:No acute intracranial findings. 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 Monitor (3) COPD (chronic obstructive pulmonary disease): No signs of COPD exacerbation (4) Do not resuscitate status: Code status DNR/DNI (5) DVT prophylaxis: SQ Lovenox (6) Discharge planning issues: Family unable to take care of the patient at home. Case Management consulted to assist with Placement Family Medicine follow-up with Dr. Billings Awaiting dementia unit placement Subjective Patient is evaluated at bedside No apparent distress noted at this morning during my encounter Sitter at bedside Sitting on bed comfortably Denies any chest pain, shortness of breath No family at bedside Waiting for placement Waiting to be off one-on-one observation Review of Systems Review of Systems: Unobtainable due to cognitive status Physical Exam Physical Exam: Physical Exam: Vitals signs as noted above General Appearance:Moderately built and nourished, agitated intermittently Head: normocephalic, Atraumatic Eyes: normal inspection, EOMI Neck: supple, Trachea midline Respiratory/Chest: Normal breath sounds, CTA Cardiovascular: S1, S2, No murmur Abdomen/GI:Soft, Non tender, Bowel sounds present Extremities/Musculoskelatal:normal inspection, no edema Neurologic/Psych:grossly no focal neurological deficits Skin: normal color, warm
[2018-08-30] MEDS: ENOXAPARIN INJ 40 MG/0.4 ML SYR SQ SCH (21:57)
[2018-08-31] MEDS: OLANZAPINE 2.5 MG TAB PO SCH ×2 (08:14→21:33)
[2018-08-31] MEDS: ASPIRIN 81 MG ECTAB PO SCH (09:16)
[2018-08-31] MEDS: CYANOCOBALAMIN 500 MCG TABLET (VITAMIN B-12) PO SCH (09:16)
[2018-08-31] MEDS: THIAMINE HCL 100 MG TAB PO SCH (09:16)
[2018-08-31] MEDS: AMLODIPINE BESYLATE 5 MG TAB PO SCH (09:33)
--- NOTE | 2018-08-31 16:55 | Hospitalist Progress Note ---
Date of Service August 31, 2018 Assessment & Plan (1) Dementia: Progressive cognitive dysfunction and agitation. H/O Dementia x 8 years- likely Alzheimer's - progressively worsening Intermittent agitation CT Head:No acute intracranial findings. 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 Monitor (3) COPD (chronic obstructive pulmonary disease): No signs of COPD exacerbation (4) Do not resuscitate status: Code status DNR/DNI (5) DVT prophylaxis: SQ Lovenox (6) Discharge planning issues: Family unable to take care of the patient at home. Case Management consulted to assist with Placement Family Medicine follow-up with Dr. Billings Awaiting dementia unit placement Subjective Patient is seen and evaluated at bedside No apparent distress today Sitter at bedside Cooperates for physical exam Denies any chest pain, shortness of breath, abd pain No family at bedside No significant change from yesterday Review of Systems Review of Systems: Unobtainable due to mental health condition Physical Exam Physical Exam: Physical Exam: Vitals signs as noted above General Appearance:Moderately built and nourished, agitated intermittently Head: normocephalic, Atraumatic Eyes: normal inspection, EOMI Neck: supple, Trachea midline Respiratory/Chest: Normal breath sounds, CTA Cardiovascular: S1, S2, No murmur Abdomen/GI:Soft, Non tender, Bowel sounds present Extremities/Musculoskelatal:normal inspection, no edema Neurologic/Psych:grossly no focal neurological deficits Skin: normal color, warm Results & Data Vital Signs (Past 12 Hours) Vital Signs Temp Pulse Resp BP Pulse Ox 08/31/18 08:35 36.4 C L 64 18 141/89 H 96
[2018-08-31] MEDS: ENOXAPARIN INJ 40 MG/0.4 ML SYR SQ SCH (20:01)
[2018-09-01] MEDS: OLANZAPINE 2.5 MG TAB PO SCH ×3 (10:19→22:13)
[2018-09-01] MEDS: AMLODIPINE BESYLATE 5 MG TAB PO SCH (10:19)
[2018-09-01] MEDS: THIAMINE HCL 100 MG TAB PO SCH (10:22)
[2018-09-01] MEDS: ASPIRIN 81 MG ECTAB PO SCH (10:23)
[2018-09-01] MEDS: CYANOCOBALAMIN 500 MCG TABLET (VITAMIN B-12) PO SCH (10:23)
--- NOTE | 2018-09-01 17:57 | Hospitalist Progress Note ---
Date of Service September 01, 2018 Assessment & Plan (1) Dementia: Progressive cognitive dysfunction and agitation. H/O Dementia x 8 years- likely Alzheimer's - progressively worsening Intermittent agitation CT Head:No acute intracranial findings. 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 Monitor (3) COPD (chronic obstructive pulmonary disease): No signs of COPD exacerbation (4) Do not resuscitate status: Code status DNR/DNI (5) DVT prophylaxis: SQ Lovenox (6) Discharge planning issues: Family unable to take care of the patient at home. Case Management consulted to assist with Placement Family Medicine follow-up with Dr. Billings Awaiting dementia unit placement Subjective Patient is seen and evaluated at bedside Agitated this morning Sitter at bedside Denies any chest pain, shortness of breath No family at bedside Review of Systems Review of Systems: Unobtainable due to cognitive status Physical Exam Physical Exam: Physical Exam: Vitals signs as noted above General Appearance:Moderately built and nourished, agitated intermittently Head: normocephalic, Atraumatic Eyes: normal inspection, EOMI Neck: supple, Trachea midline Respiratory/Chest: Normal breath sounds, CTA Cardiovascular: S1, S2, No murmur Abdomen/GI:Soft, Non tender, Bowel sounds present Extremities/Musculoskelatal:normal inspection, no edema Neurologic/Psych:grossly no focal neurological deficits Skin: normal color, warm
[2018-09-01] MEDS: ENOXAPARIN INJ 40 MG/0.4 ML SYR SQ SCH (20:17)
[2018-09-01] MEDS: OLANZapine 10 MG/2.1 ML SDV IM PRN ×2 (22:20→23:10)
[2018-09-02] MEDS: OLANZAPINE 2.5 MG TAB PO SCH ×2 (08:25→22:14)
[2018-09-02] MEDS: ASPIRIN 81 MG ECTAB PO SCH (08:54)
[2018-09-02] MEDS: AMLODIPINE BESYLATE 5 MG TAB PO SCH (08:54)
[2018-09-02] MEDS: CYANOCOBALAMIN 500 MCG TABLET (VITAMIN B-12) PO SCH (08:55)
[2018-09-02] MEDS: THIAMINE HCL 100 MG TAB PO SCH (08:55)
[2018-09-02] MEDS: POLYETHYLENE (MIRALAX) 17 GM PACK PO PRN (13:59)
--- NOTE | 2018-09-02 19:06 | Hospitalist Progress Note ---
Date of Service September 02, 2018 Assessment & Plan (1) Dementia: Progressive cognitive dysfunction and agitation. H/O Dementia x 8 years- likely Alzheimer's - progressively worsening Intermittent agitation CT Head:No acute intracranial findings. 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 Monitor (3) COPD (chronic obstructive pulmonary disease): No signs of COPD exacerbation (4) Do not resuscitate status: Code status DNR/DNI (5) DVT prophylaxis: SQ Lovenox (6) Discharge planning issues: Family unable to take care of the patient at home. Case Management consulted to assist with Placement Family Medicine follow-up with Dr. Billings Awaiting dementia unit placement Subjective Patient is seen and evaluated at bedside Unable to obtain much history Agitated intermittently Sitter at bedside Review of Systems Review of Systems: Unobtainable due to cognitive status Physical Exam Physical Exam: Could not examine the patient is patient is agitated
[2018-09-02] MEDS: ENOXAPARIN INJ 40 MG/0.4 ML SYR SQ SCH (22:14)
[2018-09-03] MEDS: OLANZAPINE 2.5 MG TAB PO SCH ×2 (07:57→19:55)
[2018-09-03] MEDS: AMLODIPINE BESYLATE 5 MG TAB PO SCH (09:58)
[2018-09-03] MEDS: ASPIRIN 81 MG ECTAB PO SCH (09:58)
[2018-09-03] MEDS: CYANOCOBALAMIN 500 MCG TABLET (VITAMIN B-12) PO SCH (09:58)
[2018-09-03] MEDS: THIAMINE HCL 100 MG TAB PO SCH (09:58)
[2018-09-03] MEDS: OLANZapine 10 MG/2.1 ML SDV IM PRN (10:05)
[2018-09-03] MEDS ORDERED: SOD PHOSPHATE/SOD BIPHOSPHATE ENEMA 132 ML BTL PR PRN (10:28)
[2018-09-03] MEDS ORDERED: BISACODYL 10 MG SUPP PR PRN (10:47)
[2018-09-03] MEDS: DOCUSATE SODIUM/SENNA 50/8.6MG TAB PO SCH ×2 (12:01→19:55)
--- NOTE | 2018-09-03 14:44 | Hospitalist Progress Note ---
Date of Service September 03, 2018 Assessment & Plan (1) Dementia: Progressive cognitive dysfunction and agitation. H/O Dementia x 8 years- likely Alzheimer's - progressively worsening Intermittent agitation CT Head:No acute intracranial findings. 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 Monitor Constipation: Started on bowel regimen (3) COPD (chronic obstructive pulmonary disease): No signs of COPD exacerbation (4) Do not resuscitate status: Code status DNR/DNI (5) DVT prophylaxis: SQ Lovenox (6) Discharge planning issues: Family unable to take care of the patient at home. Case Management consulted to assist with Placement Family Medicine follow-up with Dr. Billings Awaiting dementia unit placement Subjective Patient is seen and evaluated at bedside Has constipation Unable to obtain much history Agitated intermittently Sitter at bedside No other complaints Review of Systems Review of Systems: Unobtainable due to cognitive status Physical Exam Physical Exam: Physical Exam: Vitals signs as noted above General Appearance:Moderately built and nourished, agitated intermittently Head: normocephalic, Atraumatic Eyes: normal inspection, EOMI Neck: supple, Trachea midline Respiratory/Chest: Normal breath sounds, CTA Cardiovascular: S1, S2, No murmur Abdomen/GI:Soft, Non tender, Bowel sounds present Extremities/Musculoskelatal:normal inspection, no edema Neurologic/Psych:grossly no focal neurological deficits Skin: normal color, warm
[2018-09-03] MEDS: ENOXAPARIN INJ 40 MG/0.4 ML SYR SQ SCH (20:39)
[2018-09-04] MEDS: OLANZapine 10 MG/2.1 ML SDV IM PRN ×2 (02:04→13:24)
[2018-09-04] MEDS: CYANOCOBALAMIN 500 MCG TABLET (VITAMIN B-12) PO SCH (09:23)
[2018-09-04] MEDS: AMLODIPINE BESYLATE 5 MG TAB PO SCH (09:23)
[2018-09-04] MEDS: THIAMINE HCL 100 MG TAB PO SCH (09:23)
[2018-09-04] MEDS: ASPIRIN 81 MG ECTAB PO SCH (09:23)
[2018-09-04] MEDS: DOCUSATE SODIUM/SENNA 50/8.6MG TAB PO SCH (09:35)
[2018-09-04] MEDS: OLANZAPINE 2.5 MG TAB PO SCH (09:35)
--- NOTE | 2018-09-04 15:36 | Hospitalist Progress Note ---
Date of Service September 04, 2018 Assessment & Plan (1) Dementia: Progressive cognitive dysfunction and agitation. H/O Dementia x 8 years- likely Alzheimer's - progressively worsening Intermittent agitation CT Head:No acute intracranial findings. 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 Monitor Constipation: Resolved Continue bowel regimen (3) COPD (chronic obstructive pulmonary disease): No signs of COPD exacerbation (4) Do not resuscitate status: Code status DNR/DNI (5) DVT prophylaxis: SQ Lovenox (6) Discharge planning issues: Family unable to take care of the patient at home. Case Management consulted to assist with Placement Family Medicine follow-up with Dr. Billings Awaiting dementia unit placement Subjective Patient is seen and evaluated at bedside Constipation resolved with bowel regimen Unable to obtain much history due to cognitive status Continues to be agitated intermittently Sitter at bedside Pleasant during my examination today Poor sleep Review of Systems Review of Systems: Unobtainable due to cognitive status Physical Exam Physical Exam: Physical Exam: Vitals signs as noted above General Appearance:Moderately built and nourished, agitated intermittently Head: normocephalic, Atraumatic Eyes: normal inspection, EOMI Neck: supple, Trachea midline Respiratory/Chest: Normal breath sounds, CTA Cardiovascular: S1, S2, No murmur Abdomen/GI:Soft, Non tender, Bowel sounds present Extremities/Musculoskelatal:normal inspection, no edema Neurologic/Psych:grossly no focal neurological deficits Skin: normal color, warm Results & Data Vital Signs (Past 12 Hours) Vital Signs Resp BP 09/04/18 11:32 18 131/86
[2018-09-04] MEDS: ENOXAPARIN INJ 40 MG/0.4 ML SYR SQ SCH (22:24)
[2018-09-05] MEDS: DOCUSATE SODIUM/SENNA 50/8.6MG TAB PO SCH ×3 (03:16→23:08)
[2018-09-05] MEDS: OLANZAPINE 2.5 MG TAB PO SCH ×3 (03:16→20:19)
[2018-09-05] MEDS: AMLODIPINE BESYLATE 5 MG TAB PO SCH (10:27)
[2018-09-05] MEDS: ASPIRIN 81 MG ECTAB PO SCH (10:27)
[2018-09-05] MEDS: CYANOCOBALAMIN 500 MCG TABLET (VITAMIN B-12) PO SCH (10:27)
[2018-09-05] MEDS: THIAMINE HCL 100 MG TAB PO SCH (10:27)
--- NOTE | 2018-09-05 15:44 | Hospitalist Progress Note ---
Date of Service September 05, 2018 Assessment & Plan (1) Dementia: Progressive cognitive dysfunction and agitation. H/O Dementia x 8 years- likely Alzheimer's - progressively worsening Intermittent agitation CT Head:No acute intracranial findings. 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 Monitor Constipation: Resolved Continue bowel regimen (3) COPD (chronic obstructive pulmonary disease): No signs of COPD exacerbation (4) Do not resuscitate status: Code status DNR/DNI (5) DVT prophylaxis: SQ Lovenox (6) Discharge planning issues: Family unable to take care of the patient at home. Case Management consulted to assist with Placement Family Medicine follow-up with Dr. Billings Awaiting dementia unit placement Subjective Patient is seen and evaluated at bedside Continues to be agitated Sitter at bedside No new complaints Waiting for placement Review of Systems Review of Systems: All systems reviewed & are unremarkable except as noted in HPI & below Physical Exam Physical Exam: Patient refuses physical exam
[2018-09-05] MEDS: ENOXAPARIN INJ 40 MG/0.4 ML SYR SQ SCH (23:07)
[2018-09-06] MEDS: AMLODIPINE BESYLATE 5 MG TAB PO SCH (08:19)
[2018-09-06] MEDS: OLANZAPINE 2.5 MG TAB PO SCH ×2 (08:19→21:18)
[2018-09-06] MEDS: DOCUSATE SODIUM/SENNA 50/8.6MG TAB PO SCH ×2 (08:23→20:25)
[2018-09-06] MEDS: ASPIRIN 81 MG ECTAB PO SCH (08:23)
[2018-09-06] MEDS: THIAMINE HCL 100 MG TAB PO SCH (08:23)
[2018-09-06] MEDS: CYANOCOBALAMIN 500 MCG TABLET (VITAMIN B-12) PO SCH (08:24)
--- NOTE | 2018-09-06 17:23 | Hospitalist Progress Note ---
Date of Service September 06, 2018 Assessment & Plan (1) Dementia: Progressive cognitive dysfunction and agitation. H/O Dementia x 8 years- likely Alzheimer's - progressively worsening Intermittent agitation CT Head:No acute intracranial findings. 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 Monitor Constipation: Resolved Continue bowel regimen (3) COPD (chronic obstructive pulmonary disease): No signs of COPD exacerbation (4) Do not resuscitate status: Code status DNR/DNI (5) DVT prophylaxis: SQ Lovenox (6) Discharge planning issues: Family unable to take care of the patient at home. Case Management consulted to assist with Placement Family Medicine follow-up with Dr. Billings Awaiting dementia unit placement Subjective Patient is seen and evaluated at bedside Lying in bed comfortably No agitation during my examination today No new complaints Sitter at bedside Waiting for placement Review of Systems Review of Systems: Unobtainable due to cognitive status Physical Exam Physical Exam: Physical Exam: Vitals signs as noted above General Appearance:Moderately built and nourished, agitated intermittently Head: normocephalic, Atraumatic Eyes: normal inspection, EOMI Neck: supple, Trachea midline Respiratory/Chest: Normal breath sounds, CTA Cardiovascular: S1, S2, No murmur Abdomen/GI:Soft, Non tender, Bowel sounds present Extremities/Musculoskelatal:normal inspection, no edema Neurologic/Psych:grossly no focal neurological deficits Skin: normal color, warm
[2018-09-06] MEDS: ENOXAPARIN INJ 40 MG/0.4 ML SYR SQ SCH (20:24)
[2018-09-07] MEDS: OLANZAPINE 2.5 MG TAB PO SCH ×3 (08:42→20:03)
[2018-09-07 09:26] LABS: BUN Creatinine Ratio 16.5 (10-20); Calcium 8.7 mg/dl (8.5-10.1); Creatinine Clr Calc Pharmacy 58.5 ml/min; Est GFR (African American) 79.9; Est GFR (Non-African American) 68.9; Potassium 4.7 mmol/L (3.5-5.1)
[2018-09-07] MEDS: ASPIRIN 81 MG ECTAB PO SCH (10:27)
[2018-09-07] MEDS: DOCUSATE SODIUM/SENNA 50/8.6MG TAB PO SCH ×2 (10:27→20:03)
[2018-09-07] MEDS: CYANOCOBALAMIN 500 MCG TABLET (VITAMIN B-12) PO SCH (10:27)
[2018-09-07] MEDS: THIAMINE HCL 100 MG TAB PO SCH (10:27)
[2018-09-07] MEDS: AMLODIPINE BESYLATE 5 MG TAB PO SCH (10:27)
--- NOTE | 2018-09-07 12:20 | Psychiatric Progress Note ---
Date of Service September 07, 2018 Impression / Recommendations Impression 82-year-old male admitted medically on 08/14/18 due to increased agitation and combative behavior at home. Pt was diagnosed with dementia 8 years ago, which has progressively worsened. Pt was brought in on a 302 warrant for evaluation, which has since been dispoed as his behavior is best explained by his dementia and not a primary psychiatric diagnosis. Pt has been taking his scheduled doses of olanzapine 2.5mg BID more consistently, with reported improvement in behavior. Pt does have some milder episodes of agitation, which seem to be most closely related to personal care - which is to be somewhat expected in this population. As it was reported that his behavior is relatively mild in the morning, but is occasionally exacerbated in the evenings, we are recommending the 2.5mg of olanzapine be scheduled TID in order to cover for evening agitation. We will observe for response, and determine if any other adjustments or titrations are required. Continue to utilize olanzapine prns as needed to acute agitation which poses a safety risk to patient or staff - as this will allow use to better predict a stabilizing scheduled dose. Could consider having Zyprexa Zydis (ODT) available for this dosing as well. We will continue to follow along, and made medication recommendations as indicated. Appreciate the opportunity to participate in the care of this patient. PLAN: - Zyprexa 2.5mg TID - Continue prn dosing of Zyprexa 2.5mg as needed for acute agitation, to allow for accurate prediction of stabilizing scheduled dose - Continue behavioral management of confusion/agitation when possible Interval History Identifying Information 82-year-old male admitted medically on 08/14/18 on a 302 warrant due to agitation and combative behavior. It was reported that had called [facility] due to feeling uncomfortable with the patient's behaviors and a warrant was issued for mental health evaluation. Psychiatric consultation was requested to assess "dementia with agitation." Pt was seen on our service on 08/15/18 for initial consultation; he is seen today for follow-up with consideration for dose adjustment. Chief Complaint "I don't know. I don't know. Allie...Allie..." Review of Systems Notes Pt unable to fully participate in review of systems, denies having any acute concerns Subjective Subjective Patient's case was reviewed and discussed with psychiatrist and psychiatric nurse liaison. It is reported that patient's behavior has been improving, and he has been more cooperative with receiving his scheduled medications. It is reported that his confusion/agitation is often worse in the evenings. Pt was seen today to assess progress since admission. Prior to directly engaging patient, his behavior is reviewed with his 1:1 sitter, who states he has been doing rather well. He continues to speak loudly, while yelling out for "Allie", but it is reported he has not been as agitated and it appears medication adjustments have been helpful. Pt was asked how he is doing and states, "I don't know, I don't know." Pt asks for his "hat", which is not visible in his room - though this provider recalls seeing him quite happy in his baseball cap during our last visit. Pt was asked if there was anything this provider could get for him - and responds by verbalizing back the question to this provider. He does make brief verbalizations of "you're killing me", but then returns to calling out for "Allie." Physical Exam Psychiatric Orientation: alert and oriented to person; + not oriented to place, + not oriented to time and + uncooperative Apperance: appropriately dressed and appropriately groomed (Hair and suarez decently trimmed; level of hygiene appears adequate) Eye Contact: + poor eye contact Motor Behavior: + psychomotor agitation (restlessness, frequently attempting to change positions) Speech: + loud speech (yelling for "Allie") Affect: + flat affect and + irritable affect (at times, when irritated with question) Pt unable to provide information on current mood Thought Process: + concrete thought process; + thought process not goal directed and + thought process not clear or coherent it is difficult to adequately assess thought content, Insight: + severely impaired insight Judgement: + severely impaired judgement Vital Signs (Past 24 Hours) Last Vital Signs Temp 36.4 C L 08/31/18 08:35 Pulse 91 H 09/07/18 07:18 Resp 20 09/07/18 07:18 BP 164/54 H 09/07/18 07:18 Pulse Ox 98 09/07/18 07:18 Results & Data Laboratory Results Laboratory Results - last 24 hr 09/07/18 08:47 Sodium 144 Potassium 4.7 Chloride 111 H Carbon Dioxide 27 Anion Gap 7.0 BUN 17 Creatinine 1.01 Est Cr Clr Drug Dosing 58.5 Est GFR ( Amer) 79.9 Est GFR (Non-Af Amer) 68.9 BUN/Creatinine Ratio 16.5 Glucose 159 H Calcium 8.7 Current Inpatient Medications Current Inpatient Medications: Current Inpatient Medications Acetaminophen (Tylenol) 650 mg PO Q4H PRN PRN Reason: pain/fever Stop: 09/13/18 23:41 Last Admin: 08/22/18 15:35 Dose: 650 mg Documented by: Albuterol (Duoneb) 3 ml NEB Q2H PRN PRN Reason: Shortness Of Breath Or Wheezing Stop: 09/13/18 23:41 Amlodipine Besylate (Norvasc) 5 mg PO QAM [facility] Stop: 09/17/18 08:59 Last Admin: 09/07/18 10:27 Dose: Not Given Documented by: Aspirin (Ecotrin Ectab) 81 mg PO QAM [facility] Stop: 09/17/18 08:59 Last Admin: 09/07/18 10:27 Dose: Not Given Documented by: Bisacodyl (Dulcolax) 10 mg DE BID PRN PRN Reason: Constipation Stop: 10/03/18 10:46 Last Admin: 09/03/18 11:25 Dose: 10 mg Documented by: Cyanocobalamin (Vitamin B-12) [facility] [place] Stop: 09/18/18 08:59 Last Admin: 09/07/18 10:27 Dose: Not Given Documented by: Enoxaparin Sodium (Lovenox) 40 mg SQ HS [facility] Stop: 09/16/18 20:59 Last Admin: 09/06/18 20:24 Dose: Not Given Documented by: Olanzapine (Zyprexa) 2.5 mg IM Q4H PRN PRN Reason: Anxiety/Agitation Stop: 09/22/18 23:11 Last Admin: 09/04/18 13:24 Dose: 2.5 mg Documented by: Olanzapine (Zyprexa) 2.5 mg PO TID [facility] Stop: 10/07/18 08:59 Last Admin: 09/07/18 08:42 Dose: 2.5 mg Documented by: Polyethylene Glycol (Miralax Powder Packet) 17 gm PO DAILY PRN PRN Reason: Constipation Stop: 10/02/18 13:01 Last Admin: 07/19/19 13:59 Dose: 17 gm Documented by: Senna/Docusate Sodium (Senokot S) 1 tab PO BID [facility] Stop: 10/03/18 10:29 Last Admin: 09/07/18 10:27 Dose: Not Given Documented by: Sodium Biphosphate/Sodium Phosphate (Fleet Enema) 132 ml DE DAILY PRN PRN Reason: Constipation Stop: 10/03/18 10:27 Thiamine HCl (Vitamin B-1) 100 mg PO QAM [facility] Stop: 09/18/18 08:59 Last Admin: 09/07/18 10:27 Dose: Not Given Documented by: CPT Code CPT Code 04662
--- NOTE | 2018-09-07 15:18 | Hospitalist Progress Note ---
Date of Service September 07, 2018 Assessment & Plan (1) Dementia: -82-year-old male admitted medically on 08/14/18 due to increased agitation and combative behavior at home. Pt was diagnosed with dementia 8 years ago, which has progressively worsened. Pt was brought in on a 302 warrant for eval uation, which has since been dispoed as his behavior is best explained by his dementia and not a primary psychiatric diagnosis. -08/14/18 CT head: No intra or extra-axial mass lesions are visualized. There is no CT evidence of acute cortical infarction. There is no evidence of midline shift. There is no acute hemorrhage. No calvarial fractures are visualized. There are bilateral extensive white matter hypodensities likely on a small vessel basis. 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 -TSH normal; give B12 and thiamine supplements -as per recent 09/07/18 psychiatry recommendations: Zyprexa 2.5mg TID; Continue prn dosing of Zyprexa 2.5mg as needed for acute agitation, to allow for accurate prediction of stabilizing scheduled dose; Continue behavioral management of confusion/agitation when possible (2) HTN (hypertension): Continue amlodipine 5 mg daily (3) COPD (chronic obstructive pulmonary disease): -No signs of COPD exacerbation Prolonged QTC interval on EKG -last EKG on 08/26/18 was 485 on 08/26/18 -avoid frequent EKGs because of agitation (4) Do not resuscitate status: Code status DNR/DNI (5) DVT prophylaxis: SQ Lovenox (6) Discharge planning issues: Family unable to take care of the patient at home. Case Management consulted to assist with Placement Gaby Gillespie, , telephone [phone] Subjective hospitalist met with patient. Patient would not allow physician to perform the physical exam. He has 1 to 1 custody assistant at the bedside to try to help orient the patient. Patient breathing on room air. Patient has agitation. Patient does not appear to be in pain. Hospitalist doctor spoke with patient's Gaby Gillespie on the telephone [phone] as she was calling the hospital bed phone. Physical Exam Physical Exam: hospitalist met with patient. Patient would not allow physician to perform the physical exam. He has 1 to 1 custody assistant at the bedside to try to help orient the patient. Patient breathing on room air. Patient has agitation. Patient does not appear to be in pain. Results & Data Vital Signs (Past 12 Hours) Vital Signs Pulse Resp BP Pulse Ox 09/07/18 07:18 91 H 20 164/54 H 98
[2018-09-07] MEDS: CYANOCOBALAMIN (VITAMIN B-12) 100 MCG TABLET PO SCH (17:14)
[2018-09-07] MEDS: ENOXAPARIN INJ 40 MG/0.4 ML SYR SQ SCH (20:02)
[2018-09-08] MEDS: OLANZAPINE 2.5 MG TAB PO SCH ×3 (10:14→20:00)
[2018-09-08] MEDS: AMLODIPINE BESYLATE 5 MG TAB PO SCH (10:14)
[2018-09-08] MEDS: DOCUSATE SODIUM/SENNA 50/8.6MG TAB PO SCH ×2 (12:33→21:46)
[2018-09-08] MEDS: ASPIRIN 81 MG ECTAB PO SCH (12:33)
[2018-09-08] MEDS: THIAMINE HCL 100 MG TAB PO SCH (12:34)
[2018-09-08] MEDS: CYANOCOBALAMIN (VITAMIN B-12) 100 MCG TABLET PO SCH (12:34)
[2018-09-08 14:36] LABS: Basophils # (auto) 0.04 K/uL (0-0.2); Basophils % (auto) 0.6 %; Eosinophils # (auto) 0.19 K/uL (0-0.5); Eosinophils % (auto) 2.8 %; Hematocrit (blood only) 36.1 % (42-52); Hemoglobin 12.2 g/dL (14.0-18.0); Immature Granulocytes # (auto) 0.02 K/uL (0.00-0.02); Immature Granulocytes % (auto) 0.3 %; Lymphocytes # (auto) 1.01 K/uL (1.2-3.4); Lymphocytes % (auto) 14.9 %; Mean Corpuscular Hgb Conc 33.8 g/dL (32-36); Mean Corpuscular Volume 84.1 fL (80-100); Mean Platelet Volume 11.3 fL (7.4-10.4); Monocytes # (auto) 0.76 K/uL (0.11-0.59); Monocytes % (auto) 11.2 %; Neutrophils # (auto) 4.76 K/uL (1.4-6.5); Neutrophils % (auto) 70.2 %; Platelet Count 158 K/uL (130-400); RDW Coefficient of Variation 15.6 % (11.5-14.5); RDW Standard Deviation 47.4 fL (36.4-46.3); Red Blood Count 4.29 M/uL (4.7-6.1); White Blood Count 6.78 K/uL (4.8-10.8)
[2018-09-08 15:12] LABS: Albumin Level 3.1 gm/dl (3.4-5.0); Calcium 8.4 mg/dl (8.5-10.1); Creatinine Clr Calc Pharmacy 75.7 ml/min; Est GFR (African American) 97.4; Est GFR (Non-African American) 84.1
[2018-09-08 15:15] LABS: Albumin Globulin Ratio 0.8 (0.9-2); Bilirubin,Total 0.8 mg/dl (0.2-1); Globulin 3.9 gm/dl (2.5-4.0)
--- NOTE | 2018-09-08 16:21 | Hospitalist Progress Note ---
Date of Service September 08, 2018 Assessment & Plan (1) Dementia: -82-year-old male admitted medically on 08/14/18 due to increased agitation and combative behavior at home. Pt was diagnosed with dementia 8 years ago, which has progressively worsened. Pt was brought in on a 302 warrant for eval uation, which has since been dispoed as his behavior is best explained by his dementia and not a primary psychiatric diagnosis. -08/14/18 CT head: No intra or extra-axial mass lesions are visualized. There is no CT evidence of acute cortical infarction. There is no evidence of midline shift. There is no acute hemorrhage. No calvarial fractures are visualized. There are bilateral extensive white matter hypodensities likely on a small vessel basis. 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 -TSH normal; give B12 and thiamine supplements -as per recent 09/07/18 psychiatry recommendations: Zyprexa 2.5mg TID; Continue prn dosing of Zyprexa 2.5mg as needed for acute agitation, to allow for accurate prediction of stabilizing scheduled dose; Continue behavioral management of confusion/agitation when possible -disposition: awaiting on employment evaluator/case manager on possible placement options if available (2) HTN (hypertension): Continue amlodipine 5 mg daily (3) COPD (chronic obstructive pulmonary disease): -No signs of COPD exacerbation Prolonged QTC interval on EKG -last EKG on 08/26/18 was 485 on 08/26/18 -avoid frequent EKGs because of agitation (4) Do not resuscitate status: Code status DNR/DNI (5) DVT prophylaxis: SQ Lovenox (6) Discharge planning issues: Family unable to take care of the patient at home. Case Management consulted to assist with Placement Gaby Gillespie, , telephone [phone] Subjective Patient was more cooperative today to medical doctor. He allowed for exam of the heart and lung. He initially wanted to go to the bathroom and then as the nurse and nursing associate was trying to help him with removing the blankets he became very agitated and saying that he felt cold and wanted the blankets back on. Patient was not hostile during this episode. But he was very panicked and wanted to stay in the bed. Physical Exam Constitutional: Patient was more cooperative today to medical doctor. He allowed for exam of the heart and lung. He initially wanted to go to the bathroom and then as the nurse and nursing associate was trying to help him with removing the blankets he became very agitated and saying that he felt cold and wanted the blankets back on. Patient was not hostile during this episode. But he was very panicked and wanted to stay in the bed Eyes: EOM intact bilaterally ENMT: external ear and nose normal, oropharynx normal Neck: normal visual inspection Respiratory: normal respiratory effort, lungs clear to auscultation Cardiovascular: RRR, no murmur, no edema Gastrointestinal (Abdomen): normal bowel sounds, soft, nontender, no hepatosplenomegaly Musculoskeletal: Head/Neck/Chest: normocephalic and head atraumatic Neurologic: moves all extremities Psychiatric: Affect: + labile affect
[2018-09-08] MEDS: ENOXAPARIN INJ 40 MG/0.4 ML SYR SQ SCH (21:46)
[2018-09-08] MEDS: POLYETHYLENE (MIRALAX) 17 GM PACK PO PRN (22:41)
[2018-09-09] MEDS: DOCUSATE SODIUM/SENNA 50/8.6MG TAB PO SCH ×2 (09:00→20:50)
[2018-09-09] MEDS: AMLODIPINE BESYLATE 5 MG TAB PO SCH (09:00)
[2018-09-09] MEDS: ASPIRIN 81 MG ECTAB PO SCH (09:00)
[2018-09-09] MEDS: OLANZAPINE 2.5 MG TAB PO SCH ×3 (09:00→20:10)
--- NOTE | 2018-09-09 12:57 | Hospitalist Progress Note ---
Date of Service September 09, 2018 Assessment & Plan (1) Dementia: -82-year-old male admitted medically on 08/14/18 due to increased agitation and combative behavior at home. Pt was diagnosed with dementia 8 years ago, which has progressively worsened. Pt was brought in on a 302 warrant for eval uation, which has since been dispoed as his behavior is best explained by his dementia and not a primary psychiatric diagnosis. -08/14/18 CT head: No intra or extra-axial mass lesions are visualized. There is no CT evidence of acute cortical infarction. There is no evidence of midline shift. There is no acute hemorrhage. No calvarial fractures are visualized. There are bilateral extensive white matter hypodensities likely on a small vessel basis. 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 -TSH normal -continue B12 and thiamine supplements -as per recent 09/07/18 psychiatry recommendations: Zyprexa 2.5mg TID; Continue prn dosing of Zyprexa 2.5mg as needed for acute agitation, to allow for accurate prediction of stabilizing scheduled dose; Continue behavioral management of co nfusion/agitation when possible -remains on 1 to 1, patient will need placement as per case management efforts and because patient's family cannot take care of him (2) HTN (hypertension): Continue amlodipine 5 mg daily (3) COPD (chronic obstructive pulmonary disease): -No signs of COPD exacerbation Prolonged QTC interval on EKG -last EKG on 08/26/18 was 485 on 08/26/18 -avoid frequent EKGs because of agitation (4) Do not resuscitate status: Code status DNR/DNI (5) DVT prophylaxis: SQ Lovenox (6) Discharge planning issues: Family unable to take care of the patient at home. Case Management consulted to assist with Placement Gaby Gillespie, , telephone [phone] Subjective Patient laying upright on the bed. He is calm. He allowed for medical doctor to listen to do limited physical exam. He keeps saying that he feels fine. denies acute pain. patient awake and alert but not certain whether he is oriented to his surroundings. Physical Exam Eyes: EOM intact bilaterally ENMT: external ear and nose normal, oropharynx normal Neck: normal visual inspection Respiratory: normal respiratory effort, lungs clear to auscultation Cardiovascular: RRR, no murmur, no edema Gastrointestinal (Abdomen): normal bowel sounds, soft, nontender, no hepatosplenomegaly Musculoskeletal: Head/Neck/Chest: normocephalic and head atraumatic Neurologic: moves all extremities Psychiatric: Orientation: alert He is calm. He allowed for medical doctor to listen to do limited physical exam. He keeps saying that he feels fine. denies acute pain. patient awake and alert but not certain whether he is oriented to his surroundings
[2018-09-09] MEDS: THIAMINE HCL 100 MG TAB PO SCH (13:36)
[2018-09-09] MEDS: CYANOCOBALAMIN (VITAMIN B-12) 100 MCG TABLET PO SCH (13:36)
[2018-09-09] MEDS: ENOXAPARIN INJ 40 MG/0.4 ML SYR SQ SCH (20:50)
[2018-09-10] MEDS: OLANZAPINE 2.5 MG TAB PO SCH ×3 (08:46→20:34)
[2018-09-10] MEDS: POLYETHYLENE (MIRALAX) 17 GM PACK PO PRN (08:46)
[2018-09-10] MEDS: ASPIRIN 81 MG ECTAB PO SCH (08:47)
[2018-09-10] MEDS: AMLODIPINE BESYLATE 5 MG TAB PO SCH (08:47)
[2018-09-10] MEDS: CYANOCOBALAMIN (VITAMIN B-12) 100 MCG TABLET PO SCH (08:50)
[2018-09-10] MEDS: THIAMINE HCL 100 MG TAB PO SCH (08:50)
[2018-09-10] MEDS: DOCUSATE SODIUM/SENNA 50/8.6MG TAB PO SCH ×2 (08:50→20:35)
[2018-09-10] MEDS ORDERED: AMLODIPINE BESYLATE 5 MG TAB PO ONE (12:06)
--- NOTE | 2018-09-10 12:10 | Hospitalist Progress Note ---
Date of Service September 10, 2018 Assessment & Plan (1) Dementia: -82-year-old male admitted medically on 08/14/18 due to increased agitation and combative behavior at home. Pt was diagnosed with dementia 8 years ago, which has progressively worsened. Pt was brought in on a 302 warrant for eval uation, which has since been dispoed as his behavior is best explained by his dementia and not a primary psychiatric diagnosis. -08/14/18 CT head: No intra or extra-axial mass lesions are visualized. There is no CT evidence of acute cortical infarction. There is no evidence of midline shift. There is no acute hemorrhage. No calvarial fractures are visualized. There are bilateral extensive white matter hypodensities likely on a small vessel basis. 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 -TSH normal -continue B12 and thiamine supplements -as per recent 09/07/18 psychiatry recommendations: Zyprexa 2.5mg TID; Continue prn dosing of Zyprexa 2.5mg as needed for acute agitation, to allow for accurate prediction of stabilizing scheduled dose; Continue behavioral management of co nfusion/agitation when possible -remains on and will try to transition to close checks -patient will need placement as per case management efforts and because patient's family cannot take care of him (2) HTN (hypertension): increase amlodipine from 5 mg to 10 mg daily starting on 09/10/18 as recent blood pressures in the systolics of 160s (3) COPD (chronic obstructive pulmonary disease): -No signs of COPD exacerbation Prolonged QTC interval on EKG -last EKG on 08/26/18 was 485 on 08/26/18 -avoid frequent EKGs because of agitation (4) Do not resuscitate status: Code status DNR/DNI (5) DVT prophylaxis: SQ Lovenox (6) Discharge planning issues: Family unable to take care of the patient at home. Case Management consulted to assist with Placement Gaby Gillespie, , telephone [phone] Subjective Patient is calm and cooperative. He says Thank you when medical doctor examined him. Patient denies pain. He is breathing comfortable. Patient cannot elaborate on full review of systems. Patient is on to. Physical Exam Eyes: EOM intact bilaterally ENMT: external ear and nose normal, oropharynx normal Neck: normal visual inspection Respiratory: normal respiratory effort, lungs clear to auscultation Cardiovascular: RRR, no murmur, no edema Gastrointestinal (Abdomen): normal bowel sounds, soft, nontender, no hepatosplenomegaly Musculoskeletal: Head/Neck/Chest: normocephalic and head atraumatic Neurologic: moves all extremities Psychiatric: Orientation: alert and cooperative
[2018-09-11] MEDS: ENOXAPARIN INJ 40 MG/0.4 ML SYR SQ SCH ×2 (01:54→22:00)
[2018-09-11] MEDS: DOCUSATE SODIUM/SENNA 50/8.6MG TAB PO SCH ×2 (05:45→09:39)
[2018-09-11] MEDS: OLANZAPINE 2.5 MG TAB PO SCH ×3 (05:46→13:36)
[2018-09-11] MEDS: AMLODIPINE BESYLATE 5 MG TAB PO SCH (09:11)
[2018-09-11] MEDS: CYANOCOBALAMIN (VITAMIN B-12) 100 MCG TABLET PO SCH (09:39)
[2018-09-11] MEDS: THIAMINE HCL 100 MG TAB PO SCH (09:39)
[2018-09-11] MEDS: ASPIRIN 81 MG ECTAB PO SCH (09:39)
--- NOTE | 2018-09-11 14:47 | Hospitalist Progress Note ---
Date of Service September 11, 2018 Assessment & Plan (1) Dementia: -82-year-old male admitted medically on 08/14/18 due to increased agitation and combative behavior at home. Pt was diagnosed with dementia 8 years ago, which has progressively worsened. Pt was brought in on a 302 warrant for eval uation, which has since been dispoed as his behavior is best explained by his dementia and not a primary psychiatric diagnosis. -08/14/18 CT head: No intra or extra-axial mass lesions are visualized. There is no CT evidence of acute cortical infarction. There is no evidence of midline shift. There is no acute hemorrhage. No calvarial fractures are visualized. There are bilateral extensive white matter hypodensities likely on a small vessel basis. 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 -TSH normal -continue B12 and thiamine supplements -as per recent 09/07/18 psychiatry recommendations: Zyprexa 2.5mg TID; Continue prn dosing of Zyprexa 2.5mg as needed for acute agitation, to allow for accurate prediction of stabilizing scheduled dose; Continue behavioral management of co nfusion/agitation when possible -has been off 1 to1 observation since 09/10/18 -patient will need placement as per case management efforts and because patient's family cannot take care of him (2) HTN (hypertension): -increase amlodipine from 5 mg to 10 mg daily starting on 09/10/18 as recent blood pressures in the systolics of 160s -continue amlodipine 10 mg daily (3) COPD (chronic obstructive pulmonary disease): -No signs of COPD exacerbation Prolonged QTC interval on EKG -last EKG on 08/26/18 was 485 on 08/26/18 -avoid frequent EKGs because of agitation (4) Do not resuscitate status: Code status DNR/DNI (5) DVT prophylaxis: SQ Lovenox (6) Discharge planning issues: Family unable to take care of the patient at home. Case Management consulted to assist with Placement Gaby Gillespie, , telephone [phone] Subjective Patient seen and examined at bedside. Patient's at bedside. As per nurse patient doing well off 1 to 1. Patient sits up in the bed. He is cooperative on exam. He denies pain or shortness of breath. he denies anything bothering for him. Physical Exam Eyes: EOM intact bilaterally ENMT: external ear and nose normal, oropharynx normal Neck: normal visual inspection Respiratory: normal respiratory effort, lungs clear to auscultation Cardiovascular: RRR, no murmur, no edema Gastrointestinal (Abdomen): normal bowel sounds, soft, nontender, no hepatosplenomegaly Musculoskeletal: Head/Neck/Chest: normocephalic and head atraumatic Neurologic: moves all extremities Psychiatric: Orientation: alert and cooperative
[2018-09-12] MEDS: DOCUSATE SODIUM/SENNA 50/8.6MG TAB PO SCH ×3 (01:35→20:26)
[2018-09-12] MEDS: OLANZAPINE 2.5 MG TAB PO SCH ×4 (01:35→20:26)
[2018-09-12] MEDS: CYANOCOBALAMIN (VITAMIN B-12) 100 MCG TABLET PO SCH (07:25)
[2018-09-12] MEDS: AMLODIPINE BESYLATE 5 MG TAB PO SCH (07:26)
[2018-09-12] MEDS: THIAMINE HCL 100 MG TAB PO SCH (07:26)
[2018-09-12] MEDS: ASPIRIN 81 MG ECTAB PO SCH (07:26)
--- NOTE | 2018-09-12 14:22 | Hospitalist Progress Note ---
Date of Service September 12, 2018 Assessment & Plan (1) Dementia: -82-year-old male admitted medically on 08/14/18 due to increased agitation and combative behavior at home. Pt was diagnosed with dementia 8 years ago, which has progressively worsened. Pt was brought in on a 302 warrant for eval uation, which has since been dispoed as his behavior is best explained by his dementia and not a primary psychiatric diagnosis. -08/14/18 CT head: No intra or extra-axial mass lesions are visualized. There is no CT evidence of acute cortical infarction. There is no evidence of midline shift. There is no acute hemorrhage. No calvarial fractures are visualized. There are bilateral extensive white matter hypodensities likely on a small vessel basis. 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 -TSH normal -continue B12 and thiamine supplements -as per recent 09/07/18 psychiatry recommendations: Zyprexa 2.5mg TID; Continue prn dosing of Zyprexa 2.5mg as needed for acute agitation, to allow for accurate prediction of stabilizing scheduled dose; Continue behavioral management of co nfusion/agitation when possible -has been off 1 to1 observation since 09/10/18 -patient will need placement as per case management efforts and because patient's family cannot take care of him (2) HTN (hypertension): -increase amlodipine from 5 mg to 10 mg daily starting on 09/10/18 as recent blood pressures in the systolics of 160s -continue amlodipine 10 mg daily (3) COPD (chronic obstructive pulmonary disease): -No signs of COPD exacerbation Prolonged QTC interval on EKG -last EKG on 08/26/18 was 485 on 08/26/18 -avoid frequent EKGs because of agitation (4) Do not resuscitate status: Code status DNR/DNI (5) DVT prophylaxis: SQ Lovenox (6) Discharge planning issues: Family unable to take care of the patient at home. Case Management consulted to assist with Placement Gaby Gillespie, , telephone [phone] Subjective Patient continues to be off 1 to 1 observation. He has been able to eat and drink for himself. Patient's mood labile. first he allowed medical doctor to take a listen to his breathing. Then he was having some cough. a soft towel was given to him in his hands to wipe the mouth if needed, the patient became very agitated and screamed for doctor and other medical staff to leave the room. physical exam of heart and abdomen could not be completed. patient did not appear to be in physical pain. Physical Exam Eyes: EOM intact bilaterally ENMT: external ear and nose normal, oropharynx normal Neck: normal visual inspection Respiratory: normal respiratory effort, lungs clear to auscultation Musculoskeletal: Head/Neck/Chest: normocephalic and head atraumatic Neurologic: moves all extremities Psychiatric: Orientation: alert Affect: + labile affect
[2018-09-12] MEDS: ENOXAPARIN INJ 40 MG/0.4 ML SYR SQ SCH (20:29)
[2018-09-13] MEDS: OLANZapine 10 MG/2.1 ML SDV IM PRN (05:15)
[2018-09-13] MEDS: AMLODIPINE BESYLATE 5 MG TAB PO SCH (08:10)
[2018-09-13] MEDS: OLANZAPINE 2.5 MG TAB PO SCH ×3 (08:10→21:48)
[2018-09-13] MEDS: ASPIRIN 81 MG ECTAB PO SCH (08:11)
[2018-09-13] MEDS: THIAMINE HCL 100 MG TAB PO SCH (08:13)
[2018-09-13] MEDS: CYANOCOBALAMIN (VITAMIN B-12) 100 MCG TABLET PO SCH (08:13)
[2018-09-13] MEDS: DOCUSATE SODIUM/SENNA 50/8.6MG TAB PO SCH ×2 (08:13→21:48)
--- NOTE | 2018-09-13 09:31 | Hospitalist Progress Note ---
Date of Service September 13, 2018 Assessment & Plan (1) Dementia: DEMENTIA with behavioral disturbance -82-year-old male admitted medically on 08/14/18 due to increased agitation and combative behavior at home. Pt was diagnosed with dementia 8 years ago, which has progressively worsened. Pt was brought in on a 302 warrant for evaluation, which has since been disposed as his behavior is best explained by his dementia and not a primary psychiatric diagnosis. -08/14/18 CT head: No intra or extra-axial mass lesions are visualized. There is no CT evidence of acute cortical infarction. There is no evidence of midline shift. There is no acute hemorrhage. No calvarial fractures are visualized. There are bilateral extensive white matter hypodensities likely on a small vessel basis. 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 -TSH normal -continue B12 and thiamine supplements -as per recent 09/07/18 psychiatry recommendations: Zyprexa 2.5mg TID; Continue prn dosing of Zyprexa 2.5mg as needed for acute agitation, to allow for accurate prediction of stabilizing scheduled dose; Continue behavioral management of confusion/agitation when possible -has been off 1 to1 observation since 09/10/18 -patient will need placement as per case management efforts and because patient's family cannot take care of him (2) HTN (hypertension): -increase amlodipine from 5 mg to 10 mg daily starting on 09/10/18 as recent blood pressures in the systolics of 160s -continue amlodipine 10 mg daily (3) COPD (chronic obstructive pulmonary disease): -No signs of COPD exacerbation -breathing on room air, prn duonebs if needed if shortness of breath or wheezing Prolonged QTC interval on EKG -last EKG on 08/26/18 was 485 on 08/26/18 -avoid frequent EKGs because of agitation -no chest pain complaints (4) Do not resuscitate status: Code status: DNR/DNI (5) DVT prophylaxis: SQ Lovenox (6) Discharge planning issues: Family unable to take care of the patient at home. Gaby Gillespie, , telephone [phone] Disposition: as per 09/12/18 case management notes: long-term facility referrals have been placed for [facility], [facility], [facility], [facility] and [place]. Subjective Patient cooperative on physical exam today. denies pain. he is not on 1 to 1 observation. He is able to sit up on side of the bed by himself without acute events. denies pain. breathing at baseline on room air. no fevers. no reported vomiting. Physical Exam Eyes: EOM intact bilaterally ENMT: external ear and nose normal, oropharynx normal Neck: normal visual inspection Respiratory: normal respiratory effort, lungs clear to auscultation Cardiovascular: RRR, no murmur, no edema Gastrointestinal (Abdomen): normal bowel sounds, soft, nontender, no hepatosplenomegaly Musculoskeletal: Head/Neck/Chest: normocephalic and head atraumatic Neurologic: moves all extremities Psychiatric: Orientation: alert and cooperative
[2018-09-13] MEDS ORDERED: ACETAMINOPHEN SOLN 325 MG/10.15 ML UDC PO PRN (09:32)
[2018-09-13] MEDS ORDERED: ALBUT/IPRATROP 3MG/0.5MG NEB 3 ML VIAL NEB PRN (09:32)
[2018-09-13] MEDS: ENOXAPARIN INJ 40 MG/0.4 ML SYR SQ SCH (21:48)
[2018-09-14] MEDS: ASPIRIN 81 MG ECTAB PO SCH (07:58)
[2018-09-14] MEDS: AMLODIPINE BESYLATE 5 MG TAB PO SCH (07:58)
[2018-09-14] MEDS: THIAMINE HCL 100 MG TAB PO SCH (07:58)
[2018-09-14] MEDS: CYANOCOBALAMIN (VITAMIN B-12) 100 MCG TABLET PO SCH (07:58)
[2018-09-14] MEDS: DOCUSATE SODIUM/SENNA 50/8.6MG TAB PO SCH ×2 (07:58→21:00)
[2018-09-14] MEDS: OLANZAPINE 2.5 MG TAB PO SCH ×3 (07:58→20:58)
[2018-09-14] MEDS: ENOXAPARIN INJ 40 MG/0.4 ML SYR SQ SCH (20:59)
--- NOTE | 2018-09-15 01:17 | Hospitalist Progress Note ---
Date of Service September 14, 2018 Assessment & Plan (1) HTN (hypertension): Continue amlodipine. Follow and titrate therapy. (2) COPD (chronic obstructive pulmonary disease): Pulmonary status stable. (3) Dementia: Progressive cognitive dysfunction. 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 On low dose risperidone for severe agitation which was started several weeks ago as an outpatient. Family did not notice any obvious improvement after initiation of the risperidone. Ongoing agitation. Psychiatry consulted. Prolonged QTc noted. Delta that benefits of antipsychotic therapy outweighed the risks. Receiving olanzapine 2.5 mg TID. Folic acid and TSH normal. B12 borderline low- supplement. B1 low- supplement. Dementia may be secondary to vascular dementia and/or Alzheimer's disease. Started antiplatelet therapy with aspirin. (4) Do not resuscitate status: Code status DNR as instructed by family. (5) DVT prophylaxis: SQ enoxaparin. Ambulate. (6) Discharge planning issues: Family no longer able to take care of the patient at home. Anticipate need for senior living care. Case Management consulted to assist with management. Family Medicine follow-up with Dr. Billings. Subjective Recheck for dementia. Patient seen in their room around 16:00. No longer requiring 1:1 staffing. Agitated / shouting at times, but responds to attention / redirection. On scheduled dose of olanzapine TID. Last PRN dose of olanzapine was 09/13. Review of Systems: Unable to obtain due to cognitive status. Physical Exam Constitutional: no acute distress Respiratory: no respiratory distress Auscultation: lungs clear to auscultation bilaterally Cardiovascular: Rate/Rhythm: regular rate and regular rhythm Heart Sounds: no gallop, no murmur and no cardiac rub Vessels: no JVD Extremities: no calf tenderness and no edema Gastrointestinal (Abdomen): normal bowel sounds, soft, nontender, no hepatosplenomegaly Skin: no rashes, warm and dry Psychiatric: Orientation: alert and oriented to person; + not oriented to place and + not oriented to time
[2018-09-15] MEDS: ASPIRIN 81 MG ECTAB PO SCH (10:22)
[2018-09-15] MEDS: CYANOCOBALAMIN (VITAMIN B-12) 100 MCG TABLET PO SCH (10:22)
[2018-09-15] MEDS: AMLODIPINE BESYLATE 5 MG TAB PO SCH (10:22)
[2018-09-15] MEDS: OLANZAPINE 2.5 MG TAB PO SCH ×3 (10:23→21:04)
[2018-09-15] MEDS: THIAMINE HCL 100 MG TAB PO SCH (10:23)
[2018-09-15] MEDS: DOCUSATE SODIUM/SENNA 50/8.6MG TAB PO SCH ×2 (10:23→21:04)
--- NOTE | 2018-09-15 15:30 | Psychiatric Progress Note ---
Date of Service September 15, 2018 Impression / Recommendations Impression 83-year-old male admitted medically on 08/14/18 due to increased agitation and combative behavior at home. Pt was diagnosed with dementia 8 years ago, which has progressively worsened. Pt was brought in on a 302 warrant for evaluation, which has since been dispoed as his behavior is best explained by his dementia and not a primary psychiatric diagnosis. There has been report of increased refusal of scheduled TID dosing of Zyprexa 2.5mg. His behavior remains improved overall, but concern is for decompensation with skipped doses. Pt is far less agitated today compared to previous visits. He is pleasant and cooperative, but remains disoriented. Display of milder episodes of agitation, seem to be most closely related to personal care - which is to be somewhat expected in this population and is likely not avoidable in its entirety. We continue to recommend utilization of olanzapine prns as needed for acute agitation which poses a safety risk to patient or staff. We continue to suggest that Zyprexa Zydis be available for medication refusal or administration of prns as needed. In order to manage behavior appropriately and prevent decompensation, focus should remain on patient taking his scheduled doses of medications (in any form available: tablet, ODT, IM injection). We had previously confirmed family's understanding of risks and support of medications over objection should patient display acutely agitated behavior or refuse his scheduled medications. Appropriate behavioral management will be highly dependent on patient receiving his scheduled medication regularly, and efforts to see to this should be continued. (1) Agitation: 08/15 - Would suggest cardiology consultation if there is ongoing need to utilize antipsychotic medications to manage agitated behavior; QTc already prolonged at 497 (08/14/18) and 518 (08/15/18) - Recommend continued serial EKGs - Risks and benefits would need to be discussed with patient's primary decision-maker regarding possibility of further prolongation and risk of Torsades - Could attempt to gather additional outpatient records to determine if QTc prolongation is chronic or acute, to further determine level of risk associated with ongoing use of antipsychotics 08/25 - Attending physician suggesting increase of risperidone to what is believed to be 0.25mg BID (progress notes read 2.5mg BID - which is believed to be an oversight as order reads 0.25mg BID) - If family/hospital staff feels risperidone is ineffective - could consider replacing with olanzapine 2.5mg - as tablet or even disintegrating (Zydis ODT) - Cardiology consulted on 08/16/18 due to concern for QTc prolongation, it was felt behavioral management was of greater priority, and agreed with continued use of antipsychotic medications as needed to manage moods - Continue behavioral management of agitation where appropriate - vigilance with addressing needs patient may be unable to address (toileting, pain assessments, thirst, hunger, etc); frequent re-orientation to person, place, time, and intervention; conserving usual sleep/wake cycle by encouraging activity during the day with lights on in room, lights off and blinds closed in the evenings; avoiding deliriogenic medications; and utilization of antipsychotics only as necessary to control behavior that may be a safety risk to patient or staff 09/07 - Zyprexa 2.5mg TID - Continue prn dosing of Zyprexa 2.5mg as needed for acute agitation, to allow for accurate prediction of stabilizing scheduled dose - Continue behavioral management of confusion/agitation when possible 09/15 - Continue treatment plan as above - Recommend ensuring patient is taking his scheduled medications, even if this means offering multiple times or providing patient with alternative formulation - Continue to await appropriate placement, but patient is showing improvement overall (2) Dementia: 08/15 - Pt is considered psychiatrically cleared for transfer to a facility that can adequate manage patient's with dementia - Pt cannot be involuntarily committed to an inpatient psychiatric facility, as there is no primary psychiatric condition to explain his agitation - Continue supportive care with delirium/dementia care recommendations outlined above. 08/25 - Again, patient's behaviors are not deemed to be consistent with a primary psychiatric disorder, given his lack of previous psychiatric history and 8-year diagnosis of dementia - Psychiatrically, patient is deemed to be cleared for transfer to the appropriate level of care to adequately manage his dementia-related symptoms - Recommend disposition of the 302 warrant - as patient cannot be involuntarily committed to an inpatient psychiatric facility, and now that ps ychiatric evaluation has been completed the warrant should be deemed invalid for use. Interval History Identifying Information 83-year-old male admitted medically on 08/14/18 on a 302 warrant due to agitation and combative behavior. It was reported that had called [facility] due to feeling uncomfortable with the patient's behaviors and a warrant was issued for mental health evaluation. Psychiatric consultation was requested to assess "dementia with agitation." Pt was seen on our service on 08/15/18 for initial con sultation; he is seen today for follow-up with consideration for dose adjustment. Chief Complaint "I'm just bright and bushy today!" Review of Systems Notes Patient denies any acute concerns at this time. Limited ability to accurately participate in full review of systems. Subjective Subjective Patient's case was reviewed and discussed during morning report with psychiatrist and psychiatric nurse liaison. Follow-up visit was reportedly requested due to increased medication refusals by patient. Patient was seen today to assess progress since admission. Upon entering room, patient is seated upright on the edge of bed, calmly with legs crossed. Patient is cheerful, and tells this provider that he is "bright and bushy today." This provider introduced herself again to the patient who states "oh I am sure I know you from somewhere." Patient denied any concerns at this time, stating "oh our house, me and Allie's house here is arranged so nice." When asked about his mood, patient states "well I do not know, I am just a-going with the flow." Patient denies any needs or concerns from this provider at this time, and remains quite pleasant as he wishes this provider a good day. Physical Exam Psychiatric Orientation: alert, oriented to person and cooperative (rather pleasant today); + not oriented to place and + not oriented to time Apperance: appropriately groomed; + inappropriately dressed (wearing long-sleeve t-shirt and a [employer]) Eye Contact: good eye contact Motor Behavior: no abnormal motor movements (observed while sitting upright on edge of bed) Speech: normal rate/rhythm/volume of speech Affect: euthymic affect (bright and interactive today, smiling appropriately) Mood: no depressed mood and no anxious mood "I don't really know, I'm just a-going along with the flow" Thought Process: + tangential thought process and + concrete thought process Cognition: + recent memory not intact, + attention not intact and + language not intact Insight: + impaired insight Judgement: + impaired judgement Vital Signs (Past 24 Hours) Last Vital Signs Temp 36.5 C 09/14/18 07:11 Pulse 78 09/14/18 07:11 Resp 20 09/14/18 07:11 BP 141/85 H 09/14/18 07:11 Pulse Ox 97 09/14/18 07:11 Results & Data Current Inpatient Medications Current Inpatient Medications: Current Inpatient Medications Acetaminophen (Tylenol) 325 mg PO Q6H PRN PRN Reason: Pain or Fever Stop: 10/13/18 09:31 Albuterol (Duoneb) 3 ml NEB Q8 PRN PRN Reason: Shortness Of Breath Or Wheezing Stop: 10/13/18 09:31 Amlodipine Besylate (Norvasc) 10 mg PO QAM [facility] Stop: 10/11/18 08:59 Last Admin: 09/15/18 10:22 Dose: 10 mg Documented by: Aspirin (Ecotrin Ectab) 81 mg PO QAM [facility] Stop: 09/17/18 08:59 Last Admin: 09/15/18 10:22 Dose: 81 mg Documented by: Bisacodyl (Dulcolax) 10 mg UT BID PRN PRN Reason: Constipation Stop: 10/03/18 10:46 Last Admin: 09/03/18 11:25 Dose: 10 mg Documented by: Cyanocobalamin (Vitamin B-12) [facility] [place] Stop: 10/07/18 15:29 Last Admin: 09/15/18 10:22 Dose: 100 mcg Documented by: Enoxaparin Sodium (Lovenox) 40 mg SQ HS [facility] Stop: 09/16/18 20:59 Last Admin: 09/14/18 20:59 Dose: Not Given Documented by: Olanzapine (Zyprexa) 2.5 mg IM Q4H PRN PRN Reason: Anxiety/Agitation Stop: 09/22/18 23:11 Last Admin: 09/13/18 05:15 Dose: 2.5 mg Documented by: Olanzapine (Zyprexa) 2.5 mg PO TID [facility] Stop: 10/07/18 08:59 Last Admin: 09/15/18 12:23 Dose: 2.5 mg Documented by: Polyethylene Glycol (Miralax Powder Packet) 17 gm PO DAILY PRN PRN Reason: Constipation Stop: 10/02/18 13:01 Last Admin: 09/10/18 08:46 Dose: 17 gm Documented by: Senna/Docusate Sodium (Senokot S) 1 tab PO BID [facility] Stop: 10/03/18 10:29 Last Admin: 09/15/18 10:23 Dose: 1 tab Documented by: Sodium Biphosphate/Sodium Phosphate (Fleet Enema) 132 ml UT DAILY PRN PRN Reason: Constipation Stop: 10/03/18 10:27 Thiamine HCl (Vitamin B-1) 100 [facility] [place] Stop: 09/18/18 08:59 Last Admin: 09/15/18 10:23 Dose: 100 mg Documented by: CPT Code CPT Code 29529
[2018-09-15] MEDS: ENOXAPARIN INJ 40 MG/0.4 ML SYR SQ SCH (21:04)
--- NOTE | 2018-09-15 22:45 | Hospitalist Progress Note ---
Date of Service September 15, 2018 Assessment & Plan (1) HTN (hypertension): Continue amlodipine. Follow and titrate therapy. (2) COPD (chronic obstructive pulmonary disease): Pulmonary status stable. (3) Dementia: Progressive cognitive dysfunction. 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 On low dose risperidone for severe agitation which was started several weeks ago as an outpatient. Family did not notice any obvious improvement after initiation of the risperidone. Ongoing intermittent agitation. Psychiatry consulted. Prolonged QTc noted. [place] that benefits of antipsychotic therapy outweighed the risks. Receiving olanzapine 2.5 mg TID + PRN (lasts dose 09/13). Seen for f/u by Psychiatry; continuation of same regimen recommended. Folic acid and TSH normal. B12 borderline low- supplement. B1 low- supplement. Dementia may be secondary to vascular dementia and/or Alzheimer's disease. Started antiplatelet therapy with aspirin. (4) Do not resuscitate status: Code status DNR as instructed by family. (5) DVT prophylaxis: SQ enoxaparin. Ambulate. (6) Discharge planning issues: Family no longer able to take care of the patient at home. Anticipate need for nursing home care. Case Management consulted to assist with management. Family Medicine follow-up with Dr. Billings. Subjective Recheck for dementia. Patient seen in their room around 16:40. No longer requiring 1:1 staffing. Agitated / shouting at times, but pleasantly confused at time of my assessment. Last PRN dose of olanzapine was 09/13. Review of Systems: Unable to obtain due to cognitive status. Physical Exam Constitutional: no acute distress Eyes: + eyes dysmorphic (L exotropia) Respiratory: no respiratory distress Auscultation: lungs clear to auscultation bilaterally Cardiovascular: Rate/Rhythm: regular rate and regular rhythm Heart Sounds: no gallop, no murmur and no cardiac rub Vessels: no JVD Extremities: no calf tenderness and no edema Gastrointestinal (Abdomen): normal bowel sounds, soft, nontender, no hepatosplenomegaly Skin: no rashes, warm and dry Psychiatric: Orientation: alert and oriented to person; + not oriented to place and + not oriented to time
[2018-09-16] MEDS: OLANZAPINE 2.5 MG TAB PO SCH ×2 (07:21→13:16)
[2018-09-16] MEDS: AMLODIPINE BESYLATE 5 MG TAB PO SCH (07:22)
[2018-09-16] MEDS: THIAMINE HCL 100 MG TAB PO SCH (07:22)
[2018-09-16] MEDS: DOCUSATE SODIUM/SENNA 50/8.6MG TAB PO SCH (07:22)
[2018-09-16] MEDS: CYANOCOBALAMIN (VITAMIN B-12) 100 MCG TABLET PO SCH (07:22)
[2018-09-16] MEDS: ASPIRIN 81 MG ECTAB PO SCH (07:22)
--- NOTE | 2018-09-16 19:27 | Hospitalist Progress Note ---
Date of Service September 16, 2018 Assessment & Plan (1) Dementia: Progressive cognitive dysfunction. 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 On low dose risperidone for severe agitation which was started several weeks ago as an outpatient. Family did not notice any obvious improvement after initiation of the risperidone. Ongoing intermittent agitation. Psychiatry consulted. Prolonged QTc noted. [place] that benefits of antipsychotic therapy outweighed the risks. Receiving olanzapine 2.5 mg TID + PRN (lasts dose 09/13). Seen for f/u by Psychiatry; continuation of same regimen recommended. Folic acid and TSH normal. B12 borderline low- supplement. B1 low- supplement. Dementia may be secondary to vascular dementia and/or Alzheimer's disease. Started antiplatelet therapy with aspirin. (2) HTN (hypertension): Continue amlodipine. Follow and titrate therapy. (3) COPD (chronic obstructive pulmonary disease): Pulmonary status stable. (4) Do not resuscitate status: Code status DNR as instructed by family. (5) DVT prophylaxis: SQ enoxaparin. Ambulate. (6) Discharge planning issues: Family no longer able to take care of the patient at home. Anticipate need for intermediate care. Case Management consulted to assist with management. Family Medicine follow-up with Dr. Billings. Subjective Recheck for dementia. Patient seen in their room around 16:20. Intermittent agitation, but responds appropriately when needs addressed. No new concerns. Last dose of PRN olanzapine was 09/13. Review of Systems: Unable to obtain due to cognitive status. Physical Exam Constitutional: no acute distress Eyes: + eyes dysmorphic (L exotropia) Respiratory: no respiratory distress Auscultation: lungs clear to auscultation bilaterally Cardiovascular: Rate/Rhythm: regular rate and regular rhythm Heart Sounds: no gallop, no murmur and no cardiac rub Vessels: no JVD Extremities: no calf tenderness and no edema Gastrointestinal (Abdomen): normal bowel sounds, soft, nontender, no hepatosplenomegaly Skin: no rashes, warm and dry Psychiatric: Orientation: alert and oriented to person; + not oriented to place and + not oriented to time
[2018-09-17] MEDS: DOCUSATE SODIUM/SENNA 50/8.6MG TAB PO SCH ×3 (04:15→21:56)
[2018-09-17] MEDS: OLANZAPINE 2.5 MG TAB PO SCH ×5 (04:15→20:45)
[2018-09-17] MEDS: THIAMINE HCL 100 MG TAB PO SCH (13:58)
[2018-09-17] MEDS: AMLODIPINE BESYLATE 5 MG TAB PO SCH (13:58)
[2018-09-17] MEDS: CYANOCOBALAMIN (VITAMIN B-12) 100 MCG TABLET PO SCH (13:58)
--- NOTE | 2018-09-17 15:12 | Hospitalist Progress Note ---
Date of Service September 17, 2018 Assessment & Plan (1) Dementia: Progressive cognitive dysfunction. 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 On low dose risperidone for severe agitation which was started several weeks ago as an outpatient. Family did not notice any obvious improvement after initiation of the risperidone. Ongoing intermittent agitation. Psychiatry consulted. Prolonged QTc noted. [place] that benefits of antipsychotic therapy outweighed the risks. Receiving olanzapine 2.5 mg TID + PRN (lasts dose 09/13). Seen for f/u by Psychiatry; continuation of same regimen recommended. Folic acid and TSH normal. B12 borderline low- supplement. B1 low- supplement. Dementia may be secondary to vascular dementia and/or Alzheimer's disease. Started antiplatelet therapy with aspirin. Continues to have episodes of agitation / shouting, but responds to his needs being addressed. (2) HTN (hypertension): Continue amlodipine. Follow and titrate therapy. (3) COPD (chronic obstructive pulmonary disease): Pulmonary status stable. (4) Do not resuscitate status: Code status DNR as instructed by family. (5) DVT prophylaxis: SQ enoxaparin. Ambulate. (6) Discharge planning issues: Family no longer able to take care of the patient at home. Anticipate need for pen[facility]entiary care. Case Management consulted to assist with management; waiting for accepting facility. Family Medicine follow-up with Dr. Billings. Subjective Recheck for dementia. Patient seen in their room around 11:20. Intermittent agitation, but responds appropriately when needs addressed. For example, shouting this morning. Pt indicated that he was cold and was fine after covered with blanket. Enjoys company. Really enjoys cookies. Likes to sing. Review of Systems: Unable to obtain due to cognitive status. Physical Exam Constitutional: no acute distress Eyes: + eyes dysmorphic (L exotropia) Respiratory: no respiratory distress Auscultation: lungs clear to auscultation bilaterally Cardiovascular: Rate/Rhythm: regular rate and regular rhythm Heart Sounds: no gallop, no murmur and no cardiac rub Vessels: no JVD Extremities: no calf tenderness and no edema Gastrointestinal (Abdomen): normal bowel sounds, soft, nontender, no hepatosplenomegaly Skin: no rashes, warm and dry Psychiatric: Orientation: alert and oriented to person; + not oriented to place and + not oriented to time
[2018-09-17] MEDS: ENOXAPARIN INJ 40 MG/0.4 ML SYR SQ SCH (21:58)
[2018-09-18] MEDS: OLANZAPINE ZYDIS 5 MG ORALLY DIS. TAB PO SCH ×3 (05:22→22:19)
[2018-09-18] MEDS: ASPIRIN 81 MG ECTAB PO SCH (07:23)
[2018-09-18] MEDS: AMLODIPINE BESYLATE 5 MG TAB PO SCH (07:23)
[2018-09-18] MEDS: DOCUSATE SODIUM/SENNA 50/8.6MG TAB PO SCH ×2 (08:37→22:22)
[2018-09-18] MEDS: CYANOCOBALAMIN (VITAMIN B-12) 100 MCG TABLET PO SCH (08:44)
[2018-09-18] MEDS: THIAMINE HCL 100 MG TAB PO SCH (08:50)
--- NOTE | 2018-09-18 18:39 | Hospitalist Progress Note ---
Date of Service September 18, 2018 Assessment & Plan (1) Dementia: Progressive cognitive dysfunction. 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 On low dose risperidone for severe agitation which was started several weeks ago as an outpatient. Family did not notice any obvious improvement after initiation of the risperidone. Ongoing intermittent agitation. Psychiatry consulted. Prolonged QTc noted. [place] that benefits of antipsychotic therapy outweighed the risks. Receiving olanzapine 2.5 mg TID + PRN (lasts dose 09/13). Seen for f/u by Psychiatry; continuation of same regimen recommended. Folic acid and TSH normal. B12 borderline low- supplement. B1 low- supplement. Dementia may be secondary to vascular dementia and/or Alzheimer's disease. Started antiplatelet therapy with aspirin. Continues to have episodes of agitation / shouting, but responds to his needs being addressed. Enjoys company. Really enjoys cookies. Likes to sing. (2) HTN (hypertension): Continue amlodipine. Follow and titrate therapy. (3) COPD (chronic obstructive pulmonary disease): Pulmonary status stable. (4) Do not resuscitate status: Code status DNR as instructed by family. (5) DVT prophylaxis: SQ enoxaparin. Ambulate. (6) Discharge planning issues: Family no longer able to take care of the patient at home. Anticipate need for half-way care. Case Management consulted to assist with management; waiting for accepting facility. Family Medicine follow-up with Dr. Billings. Subjective Recheck for dementia. Patient seen in their room around 16:00. No new problems / concerns. Intermittent agitation, but responds quickly when needs are addressed. Remains on low dose scheduled olanzapine; has no required any PRN dosing since 09/13 Review of Systems: Unable to obtain due to cognitive status. Physical Exam Constitutional: no acute distress Eyes: + eyes dysmorphic (L exotropia) Respiratory: no respiratory distress Auscultation: lungs clear to auscultation bilaterally Cardiovascular: Rate/Rhythm: regular rate and regular rhythm Heart Sounds: no gallop, no murmur and no cardiac rub Vessels: no JVD Extremities: no calf tenderness and no edema Gastrointestinal (Abdomen): normal bowel sounds, soft, nontender, no hepatosplenomegaly Skin: no rashes, warm and dry Psychiatric: Orientation: alert and oriented to person; + not oriented to place and + not oriented to time
[2018-09-18] MEDS: ENOXAPARIN INJ 40 MG/0.4 ML SYR SQ SCH (22:20)
[2018-09-19] MEDS: OLANZapine 10 MG/2.1 ML SDV IM PRN (04:45)
--- NOTE | 2018-09-19 08:15 | Hospitalist Progress Note ---
Date of Service September 19, 2018 Assessment & Plan (1) Dementia: Patient was admitted on 08/14/2018 due to increased agitation and combative behavior at home. Patient was diagnosed with dementia 8 years ago which has progressively worsened. Patient was brought in on 030 warrant for evaluation which has since been disposed as his behavior is best explained by his dementia and not a primary psychiatry diagnosis. Etiology of dementia-Alzheimer's or vascular -On olanzapine 2.5 mg TID + PRN (lasts dose 09/13). Was on risperidone 0.25 mg PO BID, but family felt it wasnt effective, so changed to Olanzapine -Cardiology was also consulted due to prolonged QTC. It was felt behavioral management was of greater priority and agreed with continued use of antipsychotic as needed. 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 Folic acid and TSH normal. B12 borderline low- supplement. B1 low- supplement -Started antiplatelet therapy with aspirin this admission. Continues to have episodes of agitation / shouting, but responds to his needs being addressed. Continue with behavioral managementenjoys [employer], [employer], [employer] (2) HTN (hypertension): -Continue amlodipine. -Follow and titrate therapy. (3) COPD (chronic obstructive pulmonary disease): -Pulmonary status stable. (4) Do not resuscitate status: --Code status DNR as instructed by family. (5) DVT prophylaxis: SQ enoxaparin. -Ambulate. (6) Discharge planning issues: Family no longer able to take care of the patient at home. Anticipate need for intermediate care. Case Management consulted to assist with management; waiting for accepting facility. Family Medicine follow-up with Dr. Billings. Subjective Patient was agitated overnight and barely able to sleep as per RN. Received IM Zyprexa in the morning today. Continues to be little restless. Physical Exam Physical Exam: Limited exam as not cooperative, mildly agitated GENERAL- Awake, alert LUNGS- Air entry bilaterally equal. No rales, rhonchi, crackles, wheezes heard. HEART- Regular rate and rhythm. No murmurs
[2018-09-19] MEDS: OLANZAPINE ZYDIS 5 MG ORALLY DIS. TAB PO SCH ×3 (12:29→23:01)
[2018-09-19] MEDS: AMLODIPINE BESYLATE 5 MG TAB PO SCH (12:30)
[2018-09-19] MEDS: THIAMINE HCL 100 MG TAB PO SCH (12:30)
[2018-09-19] MEDS: ASPIRIN 81 MG ECTAB PO SCH (12:30)
[2018-09-19] MEDS: CYANOCOBALAMIN (VITAMIN B-12) 100 MCG TABLET PO SCH (12:30)
[2018-09-19] MEDS: DOCUSATE SODIUM/SENNA 50/8.6MG TAB PO SCH ×2 (12:30→22:15)
[2018-09-19] MEDS: ENOXAPARIN INJ 40 MG/0.4 ML SYR SQ SCH (21:31)
[2018-09-20] MEDS: OLANZAPINE ZYDIS 5 MG ORALLY DIS. TAB PO SCH ×4 (02:11→21:17)
[2018-09-20] MEDS: DOCUSATE SODIUM/SENNA 50/8.6MG TAB PO SCH ×2 (10:51→20:22)
[2018-09-20] MEDS: AMLODIPINE BESYLATE 5 MG TAB PO SCH (10:51)
[2018-09-20] MEDS: THIAMINE HCL 100 MG TAB PO SCH (10:51)
[2018-09-20] MEDS: CYANOCOBALAMIN (VITAMIN B-12) 100 MCG TABLET PO SCH (10:51)
[2018-09-20] MEDS: ASPIRIN 81 MG ECTAB PO SCH (10:51)
--- NOTE | 2018-09-20 12:51 | Hospitalist Progress Note ---
Date of Service September 20, 2018 Assessment & Plan (1) Dementia: Patient was admitted on 08/14/2018 due to increased agitation and combative behavior at home. Patient was diagnosed with dementia 8 years ago which has progressively worsened. Patient was brought in on 0302 warrant for evaluation which has since been disposed as his behavior is best explained by his dementia and not a primary psychiatry diagnosis. Etiology of dementia-Alzheimer's or vascular -On olanzapine 2.5 mg TID + PRN (lasts dose 09/13). Was on risperidone 0.25 mg PO BID, but family felt it wasnt effective, so changed to Olanzapine -Cardiology was also consulted due to prolonged QTC. It was felt behavioral management was of greater priority and agreed with continued use of antipsychotic as needed. 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 Folic acid and TSH normal. B12 borderline low- supplement. B1 low- supplement -Started antiplatelet therapy with aspirin this admission. Continues to have episodes of agitation / shouting, but responds to his needs being addressed. Continue with behavioral managementenjoys [employer], [employer], [employer] (2) HTN (hypertension): -Continue amlodipine. -Follow and titrate therapy. (3) COPD (chronic obstructive pulmonary disease): -Pulmonary status stable. (4) Do not resuscitate status: --Code status DNR as instructed by family. (5) DVT prophylaxis: SQ enoxaparin. -Ambulate. (6) Discharge planning issues: Family no longer able to take care of the patient at home. Anticipate need for long term care. Case Management consulted to assist with management; waiting for accepting facility. Family Medicine follow-up with Dr. Billings. Subjective Patient did a little better last night and doing well currently. Asking for a cookie. Relatively calmer today. No issues as per RN Physical Exam Physical Exam: Limited exam as not cooperative, mildly agitated GENERAL- Awake, alert LUNGS- Air entry bilaterally equal. No rales, rhonchi, crackles, wheezes heard. HEART- Regular rate and rhythm. No murmurs Results & Data Vital Signs (Past 12 Hours) Vital Signs BP 09/20/18 10:29 134/85
[2018-09-20] MEDS: ENOXAPARIN INJ 40 MG/0.4 ML SYR SQ SCH (20:21)
[2018-09-21] MEDS: OLANZAPINE ZYDIS 5 MG ORALLY DIS. TAB PO SCH ×3 (08:06→20:41)
[2018-09-21] MEDS: AMLODIPINE BESYLATE 5 MG TAB PO SCH (10:10)
[2018-09-21] MEDS: ASPIRIN 81 MG ECTAB PO SCH (10:10)
[2018-09-21] MEDS: DOCUSATE SODIUM/SENNA 50/8.6MG TAB PO SCH ×2 (10:10→20:41)
[2018-09-21] MEDS: THIAMINE HCL 100 MG TAB PO SCH (10:11)
[2018-09-21] MEDS: CYANOCOBALAMIN (VITAMIN B-12) 100 MCG TABLET PO SCH (10:11)
--- NOTE | 2018-09-21 11:31 | Hospitalist Progress Note ---
Date of Service September 21, 2018 Assessment & Plan (1) Dementia: Patient was admitted on 08/14/2018 due to increased agitation and combative behavior at home. Patient was diagnosed with dementia 8 years ago which has progressively worsened. Patient was brought in on 030 warrant for evaluation which has since been disposed as his behavior is best explained by his dementia and not a primary psychiatry diagnosis. Etiology of dementia-Alzheimer's or vascular -On olanzapine 2.5 mg TID + PRN (lasts dose 09/13). Was on risperidone 0.25 mg PO BID, but family felt it wasnt effective, so changed to Olanzapine -Cardiology was also consulted due to prolonged QTC. It was felt behavioral management was of greater priority and agreed with continued use of antipsychotic as needed. 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 Folic acid and TSH normal. B12 borderline low- supplement. B1 low- supplement -Started antiplatelet therapy with aspirin this admission. Continues to have episodes of agitation / shouting, but responds to his needs being addressed. Continue with behavioral managementenKVZ Sportss Pixel [employer], [employer], [facility] (2) HTN (hypertension): -Continue amlodipine. -Follow and titrate therapy. (3) COPD (chronic obstructive pulmonary disease): -Pulmonary status stable. (4) Do not resuscitate status: --Code status DNR as instructed by family. (5) DVT prophylaxis: SQ enoxaparin. -Ambulate. (6) Discharge planning issues: Will order blood work today as concerned if getting dehydrated as more tired Family no longer able to take care of the patient at home. Anticipate need for nursing home care. Case Management consulted to assist with management; waiting for accepting facility. Family Medicine follow-up with Dr. Billings. Subjective Patient did a little better last night . Sleepy today AM . Was thirsty and asking for water. No issues as per RN Physical Exam Physical Exam: Limited exam as not cooperative, mildly agitated GENERAL- Awake, alert LUNGS- Air entry bilaterally equal. No rales, rhonchi, crackles, wheezes heard. HEART- Regular rate and rhythm. No murmurs Results & Data Vital Signs (Past 12 Hours) Vital Signs Pulse BP 09/21/18 11:15 54 L 153/76 H
[2018-09-21 12:08] LABS: Hematocrit (blood only) 38.4 % (42-52); Mean Corpuscular Hgb Conc 33.9 g/dL (32-36); Mean Corpuscular Volume 84.2 fL (80-100); Mean Platelet Volume 11.3 fL (7.4-10.4); Platelet Count 201 K/uL (130-400); RDW Coefficient of Variation 15.3 % (11.5-14.5); RDW Standard Deviation 46.8 fL (36.4-46.3); Red Blood Count 4.56 M/uL (4.7-6.1)
[2018-09-21 12:34] LABS: Albumin Level 3.4 gm/dl (3.4-5.0); BUN Creatinine Ratio 16.8 (10-20); Calcium 8.5 mg/dl (8.5-10.1); Creatinine Clr Calc Pharmacy 58.5 ml/min; Est GFR (African American) 79.9; Est GFR (Non-African American) 68.9; Potassium 3.9 mmol/L (3.5-5.1)
[2018-09-21 12:37] LABS: Albumin Globulin Ratio 0.9 (0.9-2); Bilirubin,Total 0.8 mg/dl (0.2-1); Total Protein 7.4 gm/dl (6.4-8.2)
[2018-09-21] MEDS: ENOXAPARIN INJ 40 MG/0.4 ML SYR SQ SCH (20:42)
[2018-09-22] MEDS: ASPIRIN 81 MG ECTAB PO SCH (09:41)
[2018-09-22] MEDS: AMLODIPINE BESYLATE 5 MG TAB PO SCH (09:41)
[2018-09-22] MEDS: DOCUSATE SODIUM/SENNA 50/8.6MG TAB PO SCH ×2 (09:41→20:15)
[2018-09-22] MEDS: THIAMINE HCL 100 MG TAB PO SCH (09:42)
[2018-09-22] MEDS: CYANOCOBALAMIN (VITAMIN B-12) 100 MCG TABLET PO SCH (09:42)
[2018-09-22] MEDS: OLANZAPINE ZYDIS 5 MG ORALLY DIS. TAB PO SCH ×4 (10:03→22:12)
--- NOTE | 2018-09-22 11:08 | Hospitalist Progress Note ---
Date of Service September 22, 2018 Assessment & Plan (1) Dementia: Patient was admitted on 08/14/2018 due to increased agitation and combative behavior at home. Patient was diagnosed with dementia 8 years ago which has progressively worsened. Patient was brought in on 0302 warrant for evaluation which has since been disposed as his behavior is best explained by his dementia and not a primary psychiatry diagnosis. Etiology of dementia-Alzheimer's or vascular -On olanzapine 2.5 mg TID + PRN (last dose 09/18). Was on risperidone 0.25 mg PO BID, but family felt it wasnt effective, so changed to Olanzapine -Cardiology was also consulted due to prolonged QTC. It was felt behavioral management was of greater priority and agreed with continued use of antipsychotic as needed. 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 Folic acid and TSH normal. B12 borderline low- supplement. B1 low- supplement -Started antiplatelet therapy with aspirin this admission. Continues to have episodes of agitation / shouting, but responds to his needs being addressed. Continue with behavioral managementenjoys [employer], [employer], [email or web address] (2) HTN (hypertension): -Continue amlodipine. -Follow and titrate therapy. (3) COPD (chronic obstructive pulmonary disease): -Pulmonary status stable. (4) Do not resuscitate status: --Code status DNR as instructed by family. (5) DVT prophylaxis: SQ enoxaparin. -Ambulate. (6) Discharge planning issues: Did CBC, BMP 09/21/18- No significant abnormalities found Family no longer able to take care of the patient at home. Anticipate need for group home care. Case Management consulted to assist with management; waiting for accepting facility. Family Medicine follow-up with Dr. Billings. Subjective Patient is sleepy today morning. As per RN, has been active during the daytime. No agitative episodes at nighttime. Did not require any IM Zyprexa. Enjoys [employer], [employer]. Physical Exam Physical Exam: Limited exam as not cooperative GENERAL-sleepy LUNGS- Air entry bilaterally equal. No rales, rhonchi, crackles, wheezes heard. HEART- Regular rate and rhythm. No murmurs
[2018-09-22] MEDS: ENOXAPARIN INJ 40 MG/0.4 ML SYR SQ SCH (20:15)
[2018-09-23] MEDS: OLANZAPINE ZYDIS 5 MG ORALLY DIS. TAB PO SCH ×3 (08:24→21:55)
[2018-09-23] MEDS: AMLODIPINE BESYLATE 5 MG TAB PO SCH (08:28)
[2018-09-23] MEDS: DOCUSATE SODIUM/SENNA 50/8.6MG TAB PO SCH ×2 (08:28→21:55)
[2018-09-23] MEDS: THIAMINE HCL 100 MG TAB PO SCH (08:28)
[2018-09-23] MEDS: ASPIRIN 81 MG ECTAB PO SCH (08:28)
[2018-09-23] MEDS: CYANOCOBALAMIN (VITAMIN B-12) 100 MCG TABLET PO SCH (08:28)
--- NOTE | 2018-09-23 11:35 | Hospitalist Progress Note ---
Date of Service September 23, 2018 Assessment & Plan (1) Dementia: Patient was admitted on 08/14/2018 due to increased agitation and combative behavior at home. Patient was diagnosed with dementia 8 years ago which has progressively worsened. Patient was brought in on 0302 warrant for evaluation which has since been disposed as his behavior is best explained by his dementia and not a primary psychiatry diagnosis. Etiology of dementia-Alzheimer's or vascular -On olanzapine 2.5 mg TID + PRN (last dose 09/18). Was on risperidone 0.25 mg PO BID, but family felt it wasnt effective, so changed to Olanzapine -Cardiology was also consulted due to prolonged QTC. It was felt behavioral management was of greater priority and agreed with continued use of antipsychotic as needed. 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 Folic acid and TSH normal. B12 borderline low- supplement. B1 low- supplement -Started antiplatelet therapy with aspirin this admission. Continues to have episodes of agitation / shouting, but responds to his needs being addressed. Continue with behavioral managementenThe Grounds Keeper, [employer] (2) HTN (hypertension): -Continue amlodipine. -Follow and titrate therapy. (3) COPD (chronic obstructive pulmonary disease): -Pulmonary status stable. (4) Do not resuscitate status: --Code status DNR as instructed by family. (5) DVT prophylaxis: SQ enoxaparin. -Ambulate. (6) Discharge planning issues: Did CBC, BMP 09/21/18- No significant abnormalities found Family no longer able to take care of the patient at home. Anticipate need for long term care. Case Management consulted to assist with management; waiting for accepting facility. Family Medicine follow-up with Dr. Billings. Subjective Patient is doing well today. No signs of agitation. Overnight did not receive any IM Zyprexa [employer]ius. Physical Exam Physical Exam: Limited exam as not cooperative GENERAL-sleepy LUNGS- Air entry bilaterally equal. No rales, rhonchi, crackles, wheezes heard. HEART- Regular rate and rhythm. No murmurs Results & Data Vital Signs (Past 12 Hours) Vital Signs Pulse Resp BP Pulse Ox 09/23/18 07:43 71 17 135/75 97
[2018-09-23] MEDS: ENOXAPARIN INJ 40 MG/0.4 ML SYR SQ SCH (21:53)
--- NOTE | 2018-09-24 09:05 | Hospitalist Progress Note ---
Date of Service September 24, 2018 Assessment & Plan (1) Dementia: Patient was admitted on 08/14/2018 due to increased agitation and combative behavior at home. Patient was diagnosed with dementia 8 years ago which has progressively worsened. Patient was brought in on 0302 warrant for evaluation which has since been disposed as his behavior is best explained by his dementia and not a primary psychiatry diagnosis. Etiology of dementia-Alzheimer's or vascular -On olanzapine 2.5 mg TID + PRN (last dose 09/18). Was on risperidone 0.25 mg PO BID, but family felt it wasnt effective, so changed to Olanzapine -Cardiology was also consulted due to prolonged QTC. It was felt behavioral management was of greater priority and agreed with continued use of antipsychotic as needed. 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 Folic acid and TSH normal. B12 borderline low- supplement. B1 low- supplement -Started antiplatelet therapy with aspirin this admission. Continues to have episodes of agitation / shouting, but responds to his needs being addressed. Continue with behavioral managementenRedline Trading Solutionss [employer], [email or web address] (2) HTN (hypertension): -Continue amlodipine. -Follow and titrate therapy. (3) COPD (chronic obstructive pulmonary disease): -Pulmonary status stable. (4) Do not resuscitate status: --Code status DNR as instructed by family. (5) DVT prophylaxis: SQ enoxaparin. -Ambulate. (6) Discharge planning issues: Did CBC, BMP 09/21/18- No significant abnormalities found Family no longer able to take care of the patient at home. Anticipate need for detention care. Case Management consulted to assist with management; waiting for accepting facility. Family Medicine follow-up with Dr. Billings. Subjective Patient is doing well today. No signs of agitation. Overnight did not receive any IM Zyprexa [employer].
[2018-09-24] MEDS: OLANZAPINE ZYDIS 5 MG ORALLY DIS. TAB PO SCH ×3 (09:09→20:50)
[2018-09-24] MEDS: ASPIRIN 81 MG ECTAB PO SCH (09:12)
[2018-09-24] MEDS: AMLODIPINE BESYLATE 5 MG TAB PO SCH ×2 (09:14→09:17)
[2018-09-24] MEDS: DOCUSATE SODIUM/SENNA 50/8.6MG TAB PO SCH ×2 (09:17→20:53)
[2018-09-24] MEDS: THIAMINE HCL 100 MG TAB PO SCH (09:17)
[2018-09-24] MEDS: CYANOCOBALAMIN (VITAMIN B-12) 100 MCG TABLET PO SCH (09:17)
[2018-09-24] MEDS: ENOXAPARIN INJ 40 MG/0.4 ML SYR SQ SCH (20:53)
[2018-09-25] MEDS: OLANZAPINE ZYDIS 5 MG ORALLY DIS. TAB PO SCH ×3 (07:18→21:01)
[2018-09-25] MEDS: AMLODIPINE BESYLATE 5 MG TAB PO SCH (07:21)
[2018-09-25] MEDS: CYANOCOBALAMIN (VITAMIN B-12) 100 MCG TABLET PO SCH (07:21)
[2018-09-25] MEDS: ASPIRIN 81 MG ECTAB PO SCH (07:22)
[2018-09-25] MEDS: THIAMINE HCL 100 MG TAB PO SCH (07:22)
[2018-09-25] MEDS: DOCUSATE SODIUM/SENNA 50/8.6MG TAB PO SCH ×2 (07:24→21:01)
--- NOTE | 2018-09-25 11:09 | Hospitalist Progress Note ---
Date of Service September 25, 2018 Assessment & Plan (1) Dementia: Patient was admitted on 08/14/2018 due to increased agitation and combative behavior at home. Patient was diagnosed with dementia 8 years ago which has progressively worsened. Patient was brought in on 0302 warrant for evaluation which has since been disposed as his behavior is best explained by his dementia and not a primary psychiatry diagnosis. Etiology of dementia-Alzheimer's or vascular -On olanzapine 2.5 mg TID + PRN (last dose 09/18). Was on risperidone 0.25 mg PO BID, but family felt it wasnt effective, so changed to Olanzapine -Cardiology was also consulted due to prolonged QTC. It was felt behavioral management was of greater priority and agreed with continued use of antipsychotic as needed. 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 Folic acid and TSH normal. B12 borderline low- supplement. B1 low- supplement -Started antiplatelet therapy with aspirin this admission. Continues to have episodes of agitation / shouting, but responds to his needs being addressed. Continue with behavioral managementenIntelligent Energys [employer], [employer] (2) HTN (hypertension): -Continue amlodipine. -Follow and titrate therapy. (3) COPD (chronic obstructive pulmonary disease): -Pulmonary status stable. (4) Do not resuscitate status: --Code status DNR as instructed by family. (5) DVT prophylaxis: SQ enoxaparin. -Ambulate. (6) Discharge planning issues: Did CBC, BMP 09/21/18- No significant abnormalities found Family no longer able to take care of the patient at home. Anticipate need for correction care. Case Management consulted to assist with management; waiting for accepting facility. Family Medicine follow-up with Dr. Billings. Subjective Patient is doing well today. No signs of agitation. Overnight did not receive any IM Zyprexa [employer], [employer]. Physical Exam Physical Exam: Limited exam as not cooperative GENERAL-sleepy LUNGS- Air entry bilaterally equal. No rales, rhonchi, crackles, wheezes heard. HEART- Regular rate and rhythm. No murmurs
[2018-09-25] MEDS: ENOXAPARIN INJ 40 MG/0.4 ML SYR SQ SCH (21:01)
[2018-09-26] MEDS: AMLODIPINE BESYLATE 5 MG TAB PO SCH (08:43)
[2018-09-26] MEDS: THIAMINE HCL 100 MG TAB PO SCH (08:44)
[2018-09-26] MEDS: ASPIRIN 81 MG ECTAB PO SCH (08:44)
[2018-09-26] MEDS: OLANZAPINE ZYDIS 5 MG ORALLY DIS. TAB PO SCH ×3 (08:45→22:04)
[2018-09-26] MEDS: CYANOCOBALAMIN (VITAMIN B-12) 100 MCG TABLET PO SCH (08:45)
[2018-09-26] MEDS: DOCUSATE SODIUM/SENNA 50/8.6MG TAB PO SCH ×2 (08:48→21:43)
--- NOTE | 2018-09-26 11:18 | Hospitalist Progress Note ---
Date of Service September 26, 2018 Assessment & Plan (1) Dementia: Patient was admitted on 08/14/2018 due to increased agitation and combative behavior at home. Patient was diagnosed with dementia 8 years ago which has progressively worsened. Patient was brought in on 302 warrant for evaluation which has since been disposed as his behavior is best explained by his dementia and not a primary psychiatry diagnosis. Etiology of dementia-Alzheimer's or vascular -On olanzapine 2.5 mg TID + PRN (last dose 09/18). Was on risperidone 0.25 mg PO BID, but family felt it wasnt effective, so changed to Olanzapine. -Cardiology was also consulted due to prolonged QTC. It was felt behavioral management was of greater priority and agreed with continued use of antipsychotic as needed. 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 Folic acid and TSH normal. B12 borderline low- supplement. B1 low- supplement -Started antiplatelet therapy with aspirin this admission. Continues to have episodes of agitation / shouting, but responds to his needs being addressed. Continue with behavioral managementenAdsWizzs [employer]D, [employer] (2) HTN (hypertension): -Continue amlodipine. -Follow and titrate therapy. (3) COPD (chronic obstructive pulmonary disease): -Pulmonary status stable. (4) Do not resuscitate status: --Code status DNR as instructed by family. (5) DVT prophylaxis: SQ enoxaparin. Consider discontinuation -Ambulate. (6) Discharge planning issues: Did CBC, BMP 09/21/18 - No significant abnormalities found Family no longer able to take care of the patient at home. Case Management consulted to assist with management; waiting for accepting facility. Family Medicine follow-up with Dr. Billings. Subjective Patient is doing well today. No signs of agitation. Overnight did not receive any IM Zyprexa Enjoys [employer], [employer]. Physical Exam Physical Exam: Limited exam as not cooperative GENERAL- Awake, alert. Did not let me examine him
[2018-09-26] MEDS: ENOXAPARIN INJ 40 MG/0.4 ML SYR SQ SCH (21:43)
[2018-09-27] MEDS: ASPIRIN 81 MG ECTAB PO SCH (11:15)
[2018-09-27] MEDS: AMLODIPINE BESYLATE 5 MG TAB PO SCH (11:15)
[2018-09-27] MEDS: DOCUSATE SODIUM/SENNA 50/8.6MG TAB PO SCH ×2 (11:15→21:05)
[2018-09-27] MEDS: CYANOCOBALAMIN (VITAMIN B-12) 100 MCG TABLET PO SCH (11:16)
[2018-09-27] MEDS: OLANZAPINE ZYDIS 5 MG ORALLY DIS. TAB PO SCH ×3 (11:16→21:05)
[2018-09-27] MEDS: THIAMINE HCL 100 MG TAB PO SCH (11:16)
--- NOTE | 2018-09-27 19:15 | Hospitalist Progress Note ---
Date of Service September 27, 2018 Assessment & Plan (1) Dementia: Patient was admitted on 08/14/2018 due to increased agitation and combative behavior at home. Patient was diagnosed with dementia 8 years ago which has progressively worsened. Patient was brought in on 302 warrant for evaluation which has since been disposed as his behavior is best explained by his dementia and not a primary psychiatry diagnosis. Etiology of dementia-Alzheimer's or vascular -On olanzapine 2.5 mg TID + PRN (last dose 09/18). Was on risperidone 0.25 mg PO BID, but family felt it wasnt effective, so changed to Olanzapine. -Cardiology was also consulted due to prolonged QTC. It was felt behavioral management was of greater priority and agreed with continued use of antipsychotic as needed. 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 Folic acid and TSH normal. B12 borderline low- supplement. B1 low- supplement -Started antiplatelet therapy with aspirin this admission. Continues to have episodes of agitation / shouting, but responds to his needs being addressed. Continue with behavioral managementenRetail Infos [employer], [employer], [employer] -waiting for placement (2) HTN (hypertension): -Continue amlodipine. -Follow and titrate therapy. (3) COPD (chronic obstructive pulmonary disease): -Pulmonary status stable. (4) Do not resuscitate status: --Code status DNR as instructed by family. (5) DVT prophylaxis: SQ enoxaparin. Consider discontinuation -Ambulate. (6) Discharge planning issues: Did CBC, BMP 09/21/18 - No significant abnormalities found Family no longer able to take care of the patient at home. Case Management consulted to assist with management; waiting for accepting facility. Family Medicine follow-up with Dr. Billings. Subjective Pt was seen and examined Lying in bed with no distress He is calm with no aggressive behavior Upon leaving his room, he said that I love you Physical Exam Physical Exam: General- No acute distress Head- atraumatic, Lungs- clear to auscultation Heart- regular rhythm; no murmur Neuro- moves all 4 extremities
[2018-09-27] MEDS: ENOXAPARIN INJ 40 MG/0.4 ML SYR SQ SCH (21:05)
[2018-09-28] MEDS: OLANZAPINE ZYDIS 5 MG ORALLY DIS. TAB PO SCH ×3 (07:30→20:05)
[2018-09-28] MEDS: ASPIRIN 81 MG ECTAB PO SCH (07:31)
[2018-09-28] MEDS: AMLODIPINE BESYLATE 5 MG TAB PO SCH (07:31)
[2018-09-28] MEDS: DOCUSATE SODIUM/SENNA 50/8.6MG TAB PO SCH ×2 (08:06→20:07)
[2018-09-28] MEDS: THIAMINE HCL 100 MG TAB PO SCH (08:06)
[2018-09-28] MEDS: CYANOCOBALAMIN (VITAMIN B-12) 100 MCG TABLET PO SCH (08:07)
--- NOTE | 2018-09-28 18:33 | Hospitalist Progress Note ---
Date of Service September 28, 2018 Assessment & Plan (1) Dementia: Patient was admitted on 08/14/2018 due to increased agitation and combative behavior at home. Patient was diagnosed with dementia 8 years ago which has progressively worsened. Patient was brought in on 302 warrant for evaluation which has since been disposed as his behavior is best explained by his dementia and not a primary psychiatry diagnosis. Etiology of dementia-Alzheimer's or vascular -On olanzapine 2.5 mg TID + PRN (last dose 09/18). Was on risperidone 0.25 mg PO BID, but family felt it wasnt effective, so changed to Olanzapine. -Cardiology was also consulted due to prolonged QTC. It was felt behavioral management was of greater priority and agreed with continued use of antipsychotic as needed. 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 Folic acid and TSH normal. B12 borderline low- supplement. B1 low- supplement -Started antiplatelet therapy with aspirin this admission. Continues to have episodes of agitation / shouting, but responds to his needs being addressed. Continue with behavioral managementenTriada Gamess SchoolMint, [employer], [employer] -waiting for placement (2) HTN (hypertension): -Continue amlodipine. -Follow and titrate therapy. (3) COPD (chronic obstructive pulmonary disease): -Pulmonary status stable. (4) Do not resuscitate status: --Code status DNR as instructed by family. (5) DVT prophylaxis: SQ enoxaparin. Consider discontinuation -Ambulate. (6) Discharge planning issues: Did CBC, BMP 09/21/18 - No significant abnormalities found Family no longer able to take care of the patient at home. Case Management consulted to assist with management; waiting for accepting facility. Family Medicine follow-up with Dr. Billings. Subjective Pt was seen and examined Lying in bed with no distress Physical Exam Physical Exam: General- No acute distress Head- atraumatic, Lungs- clear to auscultation Heart- regular rhythm; no murmur Neuro- moves all 4 extremities Results & Data Vital Signs (Past 12 Hours) Vital Signs Temp Pulse Resp BP Pulse Ox 09/28/18 16:20 36.7 C 105 H 18 135/75 92
[2018-09-28] MEDS: ENOXAPARIN INJ 40 MG/0.4 ML SYR SQ SCH (20:04)
[2018-09-29] MEDS: OLANZAPINE ZYDIS 5 MG ORALLY DIS. TAB PO SCH ×3 (08:29→21:38)
[2018-09-29] MEDS: CYANOCOBALAMIN (VITAMIN B-12) 100 MCG TABLET PO SCH (09:39)
[2018-09-29] MEDS: THIAMINE HCL 100 MG TAB PO SCH (09:39)
[2018-09-29] MEDS: ASPIRIN 81 MG ECTAB PO SCH (13:26)
[2018-09-29] MEDS: DOCUSATE SODIUM/SENNA 50/8.6MG TAB PO SCH ×2 (13:26→21:38)
[2018-09-29] MEDS: AMLODIPINE BESYLATE 5 MG TAB PO SCH (13:26)
--- NOTE | 2018-09-29 18:38 | Hospitalist Progress Note ---
Date of Service September 29, 2018 Assessment & Plan (1) Dementia: Patient was admitted on 08/14/2018 due to increased agitation and combative behavior at home. Patient was diagnosed with dementia 8 years ago which has progressively worsened. Patient was brought in on 302 warrant for evaluation which has since been disposed as his behavior is best explained by his dementia and not a primary psychiatry diagnosis. Etiology of dementia-Alzheimer's or vascular -On olanzapine 2.5 mg TID + PRN (last dose 09/18). Was on risperidone 0.25 mg PO BID, but family felt it wasnt effective, so changed to Olanzapine. -Cardiology was also consulted due to prolonged QTC. It was felt behavioral management was of greater priority and agreed with continued use of antipsychotic as needed. 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 Folic acid and TSH normal. B12 borderline low- supplement. B1 low- supplement -Started antiplatelet therapy with aspirin this admission. Continues to have episodes of agitation / shouting, but responds to his needs being addressed. Continue with behavioral managementenClipper Windpowers [employer], [employer], [employer] -waiting for placement (2) HTN (hypertension): -Continue amlodipine. -Follow and titrate therapy. (3) COPD (chronic obstructive pulmonary disease): -Pulmonary status stable. (4) Do not resuscitate status: --Code status DNR as instructed by family. (5) DVT prophylaxis: SQ enoxaparin. Consider discontinuation -Ambulate. (6) Discharge planning issues: Did CBC, BMP 09/21/18 - No significant abnormalities found Family no longer able to take care of the patient at home. Case Management consulted to assist with management; waiting for accepting facility. Family Medicine follow-up with Dr. Billings. Subjective Pt was seen and examined Lying in bed with no agitation Waiting for placement Physical Exam Physical Exam: General- No acute distress Head- atraumatic, Lungs- clear to auscultation Heart- regular rhythm; no murmur Neuro- moves all 4 extremities Results & Data Vital Signs (Past 12 Hours) Vital Signs Pulse Resp BP Pulse Ox 09/29/18 16:00 92 H 20 122/75 93
[2018-09-29] MEDS: ENOXAPARIN INJ 40 MG/0.4 ML SYR SQ SCH (21:37)
[2018-09-30] MEDS: DOCUSATE SODIUM/SENNA 50/8.6MG TAB PO SCH ×2 (08:15→21:40)
[2018-09-30] MEDS: OLANZAPINE ZYDIS 5 MG ORALLY DIS. TAB PO SCH ×3 (08:15→21:40)
[2018-09-30] MEDS: ASPIRIN 81 MG ECTAB PO SCH (08:15)
[2018-09-30] MEDS: THIAMINE HCL 100 MG TAB PO SCH (08:15)
[2018-09-30] MEDS: AMLODIPINE BESYLATE 5 MG TAB PO SCH (08:15)
[2018-09-30] MEDS: CYANOCOBALAMIN (VITAMIN B-12) 100 MCG TABLET PO SCH (08:16)
--- NOTE | 2018-09-30 17:36 | Hospitalist Progress Note ---
Date of Service September 30, 2018 Assessment & Plan (1) Dementia: Patient was admitted on 08/14/2018 due to increased agitation and combative behavior at home. Patient was diagnosed with dementia 8 years ago which has progressively worsened. Patient was brought in on 302 warrant for evaluation which has since been disposed as his behavior is best explained by his dementia and not a primary psychiatry diagnosis. Etiology of dementia-Alzheimer's or vascular -On olanzapine 2.5 mg TID + PRN (last dose 09/18). Was on risperidone 0.25 mg PO BID, but family felt it wasnt effective, so changed to Olanzapine. -Cardiology was also consulted due to prolonged QTC. It was felt behavioral management was of greater priority and agreed with continued use of antipsychotic as needed. 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 Folic acid and TSH normal. B12 borderline low- supplement. B1 low- supplement -Started antiplatelet therapy with aspirin this admission. Continues to have episodes of agitation / shouting, but responds to his needs being addressed. Continue with behavioral managementenWongnais [employer]ations, [employer], [employer] -waiting for placement (2) HTN (hypertension): -Continue amlodipine. -Follow and titrate therapy. (3) COPD (chronic obstructive pulmonary disease): -Pulmonary status stable. (4) Do not resuscitate status: --Code status DNR as instructed by family. (5) DVT prophylaxis: SQ enoxaparin. Consider discontinuation -Ambulate. (6) Discharge planning issues: Did CBC, BMP 09/21/18 - No significant abnormalities found Family no longer able to take care of the patient at home. Case Management consulted to assist with management; waiting for accepting facility. Family Medicine follow-up with Dr. Billings. Subjective Pt was seen and examined Lying in bed with no distress Waiting for placement Physical Exam Physical Exam: General- No acute distress Head- atraumatic, Lungs- clear to auscultation Heart- regular rhythm; no murmur Neuro- moves all 4 extremities
[2018-09-30] MEDS: ENOXAPARIN INJ 40 MG/0.4 ML SYR SQ SCH (21:39)
[2018-10-01] MEDS: OLANZAPINE ZYDIS 5 MG ORALLY DIS. TAB PO SCH ×3 (09:51→20:36)
[2018-10-01] MEDS: AMLODIPINE BESYLATE 5 MG TAB PO SCH (09:56)
[2018-10-01] MEDS: ASPIRIN 81 MG ECTAB PO SCH (09:58)
[2018-10-01] MEDS: DOCUSATE SODIUM/SENNA 50/8.6MG TAB PO SCH ×2 (10:00→20:36)
[2018-10-01] MEDS: CYANOCOBALAMIN (VITAMIN B-12) 100 MCG TABLET PO SCH (10:00)
[2018-10-01] MEDS: THIAMINE HCL 100 MG TAB PO SCH (10:00)
--- NOTE | 2018-10-01 11:43 | Hospitalist Progress Note ---
Date of Service October 01, 2018 Assessment & Plan (1) Dementia: Patient was admitted on 08/14/2018 due to increased agitation and combative behavior at home. Patient was diagnosed with dementia 8 years ago which has progressively worsened. Patient was brought in on 302 warrant for evaluation which has since been disposed as his behavior is best explained by his dementia and not a primary psychiatry diagnosis. Etiology of dementia-Alzheimer's or vascular -On olanzapine 2.5 mg TID + PRN (last dose 09/18). Was on risperidone 0.25 mg PO BID, but family felt it wasnt effective, so changed to Olanzapine. -Cardiology was also consulted due to prolonged QTC. It was felt behavioral management was of greater priority and agreed with continued use of antipsychotic as needed. 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 Folic acid and TSH normal. B12 borderline low- supplement. B1 low- supplement -Started antiplatelet therapy with aspirin this admission. Continues to have episodes of agitation / shouting, but responds to his needs being addressed. Continue with behavioral managementenjoys [employer], [employer], [employer] -waiting for placement (2) HTN (hypertension): -Continue amlodipine. -Monitor (3) COPD (chronic obstructive pulmonary disease): -Pulmonary status stable. (4) Do not resuscitate status: --Code status DNR as instructed by family. (5) DVT prophylaxis: SQ enoxaparin. Consider discontinuation -Ambulate. (6) Discharge planning issues: Did CBC, BMP 09/21/18 - No significant abnormalities found Family no longer able to take care of the patient at home. Case Management consulted to assist with management; waiting for accepting facility. Family Medicine follow-up with Dr. Billings. Subjective Pt was seen and examined. Sitting by bedside asking for a cookie. Awaiting placement Physical Exam Physical Exam: Limited exam as not cooperative GENERAL- Awake, alert. Lungs- Clear Results & Data Vital Signs (Past 12 Hours) Vital Signs Temp Pulse Resp BP Pulse Ox 10/01/18 09:55 36.2 C L 82 16 154/66 H 93
[2018-10-01] MEDS: ENOXAPARIN INJ 40 MG/0.4 ML SYR SQ SCH (21:56)
[2018-10-02] MEDS: OLANZAPINE ZYDIS 5 MG ORALLY DIS. TAB PO SCH ×3 (09:17→20:19)
[2018-10-02] MEDS: AMLODIPINE BESYLATE 5 MG TAB PO SCH (09:22)
[2018-10-02] MEDS: CYANOCOBALAMIN (VITAMIN B-12) 100 MCG TABLET PO SCH (09:25)
[2018-10-02] MEDS: DOCUSATE SODIUM/SENNA 50/8.6MG TAB PO SCH ×2 (09:25→20:20)
[2018-10-02] MEDS: ASPIRIN 81 MG ECTAB PO SCH (09:25)
[2018-10-02] MEDS: THIAMINE HCL 100 MG TAB PO SCH (09:25)
--- NOTE | 2018-10-02 10:58 | Hospitalist Progress Note ---
Date of Service October 02, 2018 Assessment & Plan (1) Dementia: Patient was admitted on 08/14/2018 due to increased agitation and combative behavior at home. Patient was diagnosed with dementia 8 years ago which has progressively worsened. Patient was brought in on 302 warrant for evaluation which has since been disposed as his behavior is best explained by his dementia and not a primary psychiatry diagnosis. Etiology of dementia-Alzheimer's or vascular -On olanzapine 2.5 mg TID + PRN (last dose 09/18). Was on risperidone 0.25 mg PO BID, but family felt it wasnt effective, so changed to Olanzapine. -Cardiology was also consulted due to prolonged QTC. It was felt behavioral management was of greater priority and agreed with continued use of antipsychotic as needed. 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 Folic acid and TSH normal. B12 borderline low- supplement. B1 low- supplement -Started antiplatelet therapy with aspirin this admission. Continues to have episodes of agitation / shouting, but responds to his needs being addressed. Continue with behavioral managementenPersonals [employer], [employer] -waiting for placement (2) HTN (hypertension): -Continue amlodipine. -Monitor (3) COPD (chronic obstructive pulmonary disease): -Pulmonary status stable. (4) Do not resuscitate status: --Code status DNR as instructed by family. (5) DVT prophylaxis: SQ enoxaparin. Consider discontinuation -Ambulate. (6) Discharge planning issues: Did CBC, BMP 09/21/18 - No significant abnormalities found Family no longer able to take care of the patient at home. Case Management consulted to assist with management; waiting for accepting facility. Family Medicine follow-up with Dr. Billings. Subjective Pt was seen and examined. Sitting by edge of bed and having his lunch Awaiting placement Results & Data Vital Signs (Past 12 Hours) Vital Signs Temp Pulse Resp BP Pulse Ox 10/02/18 09:26 36.3 C L 89 18 128/71 96
[2018-10-02] MEDS: ENOXAPARIN INJ 40 MG/0.4 ML SYR SQ SCH (21:40)
[2018-10-03] MEDS: OLANZAPINE ZYDIS 5 MG ORALLY DIS. TAB PO SCH ×3 (07:40→19:56)
[2018-10-03] MEDS: AMLODIPINE BESYLATE 5 MG TAB PO SCH (07:40)
[2018-10-03] MEDS: THIAMINE HCL 100 MG TAB PO SCH (10:38)
[2018-10-03] MEDS: CYANOCOBALAMIN (VITAMIN B-12) 100 MCG TABLET PO SCH (10:38)
[2018-10-03] MEDS: ASPIRIN 81 MG ECTAB PO SCH (11:25)
[2018-10-03] MEDS: DOCUSATE SODIUM/SENNA 50/8.6MG TAB PO SCH ×2 (11:25→20:00)
--- NOTE | 2018-10-03 12:57 | Hospitalist Progress Note ---
Date of Service October 03, 2018 Assessment & Plan (1) Dementia: Patient was admitted on 08/14/2018 due to increased agitation and combative behavior at home. Patient was diagnosed with dementia 8 years ago which has progressively worsened. Patient was brought in on 302 warrant for evaluation which has since been disposed as his behavior is best explained by his dementia and not a primary psychiatry diagnosis. Etiology of dementia-Alzheimer's or vascular -On olanzapine 2.5 mg TID + PRN (last dose 09/18). Was on risperidone 0.25 mg PO BID, but family felt it wasn't effective, so changed to Olanzapine. -Cardiology was also consulted due to prolonged QTC. It was felt behavioral management was of greater priority and agreed with continued use of antipsychotic as needed. 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 Folic acid and TSH normal. B12 borderline low- supplement. B1 low- supplement -Started antiplatelet therapy with aspirin this admission. Continues to have episodes of agitation / shouting, but responds to his needs being addressed. Continue with behavioral management[place], [employer] -Awaiting placement (2) HTN (hypertension): -Continue amlodipine. -Monitor (3) COPD (chronic obstructive pulmonary disease): -Pulmonary status stable. (4) Do not resuscitate status: --Code status DNR as instructed by family. (5) DVT prophylaxis: SQ enoxaparin. Consider discontinuation -Ambulate. (6) Discharge planning issues: Did CBC, BMP 09/21/18 - No significant abnormalities found Family no longer able to take care of the patient at home. Case Management consulted to assist with management; waiting for accepting facility. Family Medicine follow-up with Dr. Billings. Subjective Pt was seen and examined. Sitting by edge of bed and having his lunch Awaiting placement Physical Exam Physical Exam: Limited exam as not cooperative GENERAL- Awake, alert. Lungs- Clear
[2018-10-03] MEDS: ENOXAPARIN INJ 40 MG/0.4 ML SYR SQ SCH (20:00)
[2018-10-04] MEDS: THIAMINE HCL 100 MG TAB PO SCH (10:31)
[2018-10-04] MEDS: CYANOCOBALAMIN (VITAMIN B-12) 100 MCG TABLET PO SCH (10:31)
[2018-10-04] MEDS: OLANZAPINE ZYDIS 5 MG ORALLY DIS. TAB PO SCH ×4 (10:32→20:07)
[2018-10-04] MEDS: ASPIRIN 81 MG ECTAB PO SCH (10:52)
[2018-10-04] MEDS: AMLODIPINE BESYLATE 5 MG TAB PO SCH (10:52)
[2018-10-04] MEDS: DOCUSATE SODIUM/SENNA 50/8.6MG TAB PO SCH ×2 (10:55→20:08)
--- NOTE | 2018-10-04 12:01 | Hospitalist Progress Note ---
Date of Service October 04, 2018 Assessment & Plan (1) Dementia: Patient was admitted on 08/14/2018 due to increased agitation and combative behavior at home. Patient was diagnosed with dementia 8 years ago which has progressively worsened. Patient was brought in on 302 warrant for evaluation which has since been disposed as his behavior is best explained by his dementia and not a primary psychiatry diagnosis. Etiology of dementia-Alzheimer's or vascular -On olanzapine 2.5 mg TID + PRN (last dose 09/18). Was on risperidone 0.25 mg PO BID, but family felt it wasn't effective, so changed to Olanzapine. -Cardiology was also consulted due to prolonged QTC. It was felt behavioral management was of greater priority and agreed with continued use of antipsychotic as needed. 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 Folic acid and TSH normal. B12 borderline low- supplement. B1 low- supplement -Started antiplatelet therapy with aspirin this admission. Continues to have episodes of agitation / shouting, but responds to his needs being addressed. Continue with behavioral managementExalt Communications, [employer] -Awaiting placement (2) HTN (hypertension): -Continue amlodipine. -Monitor (3) COPD (chronic obstructive pulmonary disease): -Pulmonary status stable. (4) Do not resuscitate status: --Code status DNR as instructed by family. (5) DVT prophylaxis: SQ enoxaparin. Consider discontinuation -Ambulate. (6) Discharge planning issues: Did CBC, BMP 09/21/18 - No significant abnormalities found Family no longer able to take care of the patient at home. Case Management consulted to assist with management; waiting for accepting facility. Family Medicine follow-up with Dr. Billings. Subjective Pt is sleepy today. No overnight episodes of severe agitation requiring medications per Awaiting placement Physical Exam Physical Exam: Limited exam as not cooperative GENERAL- Awake, alert. Lungs- Clear Results & Data Vital Signs (Past 12 Hours) Vital Signs Temp Pulse Resp BP Pulse Ox 10/04/18 07:09 36.5 C 107 H 22 110/71 98
[2018-10-04] MEDS: ENOXAPARIN INJ 40 MG/0.4 ML SYR SQ SCH (20:07)
[2018-10-05] MEDS: AMLODIPINE BESYLATE 5 MG TAB PO SCH (08:07)
[2018-10-05] MEDS: ASPIRIN 81 MG ECTAB PO SCH (08:07)
[2018-10-05] MEDS: OLANZAPINE ZYDIS 5 MG ORALLY DIS. TAB PO SCH ×2 (08:07→14:33)
[2018-10-05] MEDS: THIAMINE HCL 100 MG TAB PO SCH (08:09)
[2018-10-05] MEDS: CYANOCOBALAMIN (VITAMIN B-12) 100 MCG TABLET PO SCH (08:09)
[2018-10-05] MEDS: DOCUSATE SODIUM/SENNA 50/8.6MG TAB PO SCH (08:12)
--- NOTE | 2018-10-05 17:44 | Hospitalist Progress Note ---
Date of Service October 05, 2018 Assessment & Plan (1) Dementia: Patient was admitted on 08/14/2018 due to increased agitation and combative behavior at home. Patient was diagnosed with dementia 8 years ago which has progressively worsened. Patient was brought in on 302 warrant for evaluation which has since been disposed as his behavior is best explained by his dementia and not a primary psychiatry diagnosis. Etiology of dementia-Alzheimer's or vascular -On olanzapine 2.5 mg TID + PRN. -Cardiology was also consulted due to prolonged QTC. It was felt behavioral management was of greater priority and agreed with continued use of antipsychotic as needed. 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 Folic acid and TSH normal. B12 borderline low- supplement. B1 low- supplement -Started antiplatelet therapy with aspirin this admission. Continues to have episodes of agitation / shouting, but responds to his needs being addressed. Continue with behavioral managementen[employer], [employer] -Awaiting placement (2) HTN (hypertension): -Continue amlodipine. -Monitor (3) COPD (chronic obstructive pulmonary disease): -Pulmonary status stable. (4) Do not resuscitate status: --Code status DNR as instructed by family. (5) DVT prophylaxis: SQ enoxaparin. Consider discontinuation -Ambulate. (6) Discharge planning issues: Did CBC, BMP 09/21/18 - No significant abnormalities found Family no longer able to take care of the patient at home. Case Management consulted to assist with management; waiting for accepting facility. Family Medicine follow-up with Dr. Billings. Subjective was agitated earlier /later calmed down after breakfast pt found curled up in bed does not answer questions , does not follow command remains very withdrawal Physical Exam Constitutional: + ill appearing; no acute distress Eyes: + anicteric sclerae Respiratory: no respiratory distress and no cough Cardiovascular: RRR, no murmur, no edema Gastrointestinal (Abdomen): Percussion/Palpation: abdomen soft; abdomen nontender Neurologic: moves all extremities; no focal motor deficits Psychiatric: Mood: + anxious mood and + irritable mood advanced dementia Results & Data Vital Signs (Past 12 Hours) Vital Signs Pulse BP 10/05/18 08:06 81 127/81
[2018-10-06] MEDS: ENOXAPARIN INJ 40 MG/0.4 ML SYR SQ SCH ×2 (02:18→21:53)
[2018-10-06] MEDS: DOCUSATE SODIUM/SENNA 50/8.6MG TAB PO SCH ×2 (02:18→08:00)
[2018-10-06] MEDS: OLANZAPINE ZYDIS 5 MG ORALLY DIS. TAB PO SCH ×5 (02:19→23:55)
[2018-10-06] MEDS ORDERED: Nursing to Pharmacy Communication ONE (07:15)
[2018-10-06] MEDS: ASPIRIN 81 MG CHEW PO SCH (07:59)
[2018-10-06] MEDS: AMLODIPINE BESYLATE 5 MG TAB PO SCH (07:59)
[2018-10-06] MEDS: THIAMINE HCL 100 MG TAB PO SCH (08:00)
[2018-10-06] MEDS: CYANOCOBALAMIN (VITAMIN B-12) 100 MCG TABLET PO SCH (08:01)
--- NOTE | 2018-10-06 16:13 | Hospitalist Progress Note ---
Date of Service October 06, 2018 Assessment & Plan (1) Dementia: Patient was admitted on 08/14/2018 due to increased agitation and combative behavior at home. Patient was diagnosed with dementia 8 years ago which has progressively worsened. Patient was brought in on 302 warrant for evaluation which has since been disposed as his behavior is best explained by his dementia and not a primary psychiatry diagnosis. Etiology of dementia-Alzheimer's or vascular -On olanzapine 2.5 mg TID + is not required any PRN dose -Cardiology was also consulted due to prolonged QTC. It was felt behavioral management was of greater priority and agreed with continued use of antipsychotic as needed. 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 Folic acid and TSH normal. B12 borderline low- supplement. B1 low- supplement -Started antiplatelet therapy with aspirin this admission. Continues to have episodes of agitation / shouting, but responds to his needs being addressed. Continue with behavioral managementenjoys [employer], [employer], [employer] -Awaiting placement (2) HTN (hypertension): -Continue amlodipine. -Monitor (3) COPD (chronic obstructive pulmonary disease): -Pulmonary status stable. (4) Do not resuscitate status: --Code status DNR as instructed by family. (5) DVT prophylaxis: SQ enoxaparin. Consider discontinuation -Ambulate. (6) Discharge planning issues: Did CBC, BMP 09/21/18 - No significant abnormalities found Family no longer able to take care of the patient at home. Case Management consulted to assist with management; waiting for accepting facility. Family Medicine follow-up with Dr. Billings. Subjective Advanced dementia, remains confused bed, Continues to repeat" I am fine" No aggressiveness, no agitation noted Vitals remained stable Physical Exam Constitutional: + ill appearing; no acute distress Eyes: + anicteric sclerae Respiratory: no respiratory distress and no cough Cardiovascular: RRR, no murmur, no edema Gastrointestinal (Abdomen): Percussion/Palpation: abdomen soft; abdomen nontender Neurologic: moves all extremities; no focal motor deficits Psychiatric: Mood: + anxious mood and + irritable mood Advanced dementia, with episodes of behavioral disturbance, agitation Per nursing patient can be calm down easily if he needs needs are met: Usually getting food Results & Data Vital Signs (Past 12 Hours) Vital Signs Temp Pulse Resp BP BP Pulse Ox 10/06/18 14:47 36.7 C 66 20 107/67 95 08/22/19 11:57 36.6 C 93 H 20 120/72 97 10/06/18 08:00 107 H 16 129/70 97
[2018-10-07] MEDS: THIAMINE HCL 100 MG TAB PO SCH (08:59)
[2018-10-07] MEDS: CYANOCOBALAMIN (VITAMIN B-12) 100 MCG TABLET PO SCH (08:59)
[2018-10-07] MEDS: OLANZAPINE ZYDIS 5 MG ORALLY DIS. TAB PO SCH ×3 (09:00→19:27)
[2018-10-07] MEDS: AMLODIPINE BESYLATE 5 MG TAB PO SCH (09:01)
[2018-10-07] MEDS: ASPIRIN 81 MG CHEW PO SCH (09:01)
--- NOTE | 2018-10-07 18:25 | Hospitalist Progress Note ---
Date of Service October 07, 2018 Assessment & Plan (1) Dementia: Patient was admitted on 08/14/2018 due to increased agitation and combative behavior at home. Patient was diagnosed with dementia 8 years ago which has progressively worsened. Patient was brought in on 302 warrant for evaluation which has since been disposed as his behavior is best explained by his dementia and not a primary psychiatry diagnosis. Etiology of dementia-Alzheimer's or vascular -On olanzapine 2.5 mg TID scheduled dose Symptom /delirium, behavioral disturbance has significantly improved after starting on antipsychotics -Cardiology was also consulted due to prolonged QTC. It was felt behavioral management was of greater priority and agreed with continued use of antipsychotic as needed. 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 Folic acid and TSH normal. B12 borderline low- supplement. B1 low- supplement -Started antiplatelet therapy with aspirin this admission. Continues to have episodes of agitation / shouting, but responds to his needs being addressed. Continue with behavioral managementenjoys [employer], [employer] -Awaiting placement (2) HTN (hypertension): -Continue amlodipine. -Monitor (3) COPD (chronic obstructive pulmonary disease): -Pulmonary status stable. (4) Do not resuscitate status: --Code status DNR as instructed by family. (5) DVT prophylaxis: SQ enoxaparin. Consider discontinuation -Ambulate. (6) Discharge planning issues: Family no longer able to take care of the patient at home. Case Management consulted to assist with management; waiting for accepting facility. Family Medicine follow-up with Dr. Billings. Subjective Status remains unchanged, Advanced dementia, oriented to person only Unable to follow command, No agitation or combativeness noted Has been calm and cooperative as per nursing Physical Exam Constitutional: + ill appearing; no acute distress Eyes: + anicteric sclerae Respiratory: no respiratory distress and no cough Cardiovascular: RRR, no murmur, no edema Gastrointestinal (Abdomen): Percussion/Palpation: abdomen soft; abdomen nontender Neurologic: moves all extremities; no focal motor deficits Psychiatric: Advanced dementia, confusion oriented to person only
[2018-10-07] MEDS: ENOXAPARIN INJ 40 MG/0.4 ML SYR SQ SCH (19:27)
[2018-10-08] MEDS: OLANZAPINE ZYDIS 5 MG ORALLY DIS. TAB PO SCH ×3 (10:05→20:11)
[2018-10-08] MEDS: THIAMINE HCL 100 MG TAB PO SCH (10:06)
[2018-10-08] MEDS: AMLODIPINE BESYLATE 5 MG TAB PO SCH (10:06)
[2018-10-08] MEDS: ASPIRIN 81 MG CHEW PO SCH (10:06)
--- NOTE | 2018-10-08 17:44 | Hospitalist Progress Note ---
Date of Service October 08, 2018 Assessment & Plan (1) Dementia: Patient was admitted on 08/14/2018 due to increased agitation and combative behavior at home. Patient was diagnosed with dementia 8 years ago which has progressively worsened. Patient was brought in on 302 warrant for evaluation which has since been disposed as his behavior is best explained by his dementia and not a primary psychiatry diagnosis. 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 Folic acid and TSH normal. B12 borderline low- supplement. B1 low- supplement -Started antiplatelet therapy with aspirin this admission. Continues to have episodes of agitation / shouting, but responds to his needs being addressed. Continue with behavioral managementZ[facility] -Awaiting placement (2) HTN (hypertension): -Continue amlodipine. -Monitor (3) COPD (chronic obstructive pulmonary disease): -Pulmonary status stable. (4) Do not resuscitate status: --Code status DNR as instructed by family. (5) DVT prophylaxis: SQ enoxaparin. Consider discontinuation -Ambulate. (6) Discharge planning issues: Family no longer able to take care of the patient at home. Case Management consulted to assist with management; waiting for accepting f acility. Family Medicine follow-up with Dr. Billings. Subjective Patient was sleeping soundly, wakes up to voice, offers no complaint Has been afebrile, vitals stable Per nursing patient has been cooperative, no agitation combativeness or behavioral disturbance noted in the past few days Awaiting for placement Physical Exam Constitutional: + ill appearing; no acute distress Eyes: + anicteric sclerae Respiratory: no respiratory distress and no cough Cardiovascular: RRR, no murmur, no edema Gastrointestinal (Abdomen): Percussion/Palpation: abdomen soft; abdomen nontender Neurologic: moves all extremities; no focal motor deficits Psychiatric: Mood: + anxious mood and + irritable mood
[2018-10-08] MEDS: ENOXAPARIN INJ 40 MG/0.4 ML SYR SQ SCH (23:09)
[2018-10-09] MEDS: AMLODIPINE BESYLATE 5 MG TAB PO SCH (09:07)
[2018-10-09] MEDS: ASPIRIN 81 MG CHEW PO SCH (09:07)
[2018-10-09] MEDS: THIAMINE HCL 100 MG TAB PO SCH (09:07)
[2018-10-09] MEDS: OLANZAPINE ZYDIS 5 MG ORALLY DIS. TAB PO SCH ×3 (09:09→21:21)
--- NOTE | 2018-10-09 14:47 | Hospitalist Progress Note ---
Date of Service October 09, 2018 Assessment & Plan (1) Dementia: Patient was admitted on 08/14/2018 due to increased agitation and combative behavior at home. Patient was diagnosed with dementia 8 years ago which has progressively worsened. Patient was brought in on 302 warrant for evaluation which has since been disposed as his behavior is best explained by his dementia and not a primary psychiatry diagnosis. 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 Folic acid and TSH normal. B12 borderline low- supplement. B1 low- supplement -Started antiplatelet therapy with aspirin this admission. Continues to have episodes of agitation / shouting, but responds to his needs being addressed. Continue with behavioral managementBrittmore Group -Awaiting placement (2) HTN (hypertension): -Continue amlodipine. -Monitor (3) COPD (chronic obstructive pulmonary disease): -Pulmonary status stable. (4) Do not resuscitate status: --Code status DNR as instructed by family. (5) DVT prophylaxis: SQ enoxaparin. Consider discontinuation -Ambulate. (6) Discharge planning issues: Family no longer able to take care of the patient at home. Case Management consulted to assist with management; waiting for accepting f acility. Family Medicine follow-up with Dr. Billings. Subjective Patient found to be awake, sitting up on edge of the bed, Remains confused, oriented to person only Unable to follow command, Per nursing patient has been cooperative, no agitation combativeness or behavioral disturbance noted in the past few days Awaiting for placement Physical Exam Constitutional: + ill appearing; no acute distress Eyes: + anicteric sclerae Respiratory: no respiratory distress and no cough Cardiovascular: RRR, no murmur, no edema Gastrointestinal (Abdomen): Percussion/Palpation: abdomen soft; abdomen nontender Neurologic: moves all extremities; no focal motor deficits Psychiatric: Mood: + anxious mood and + irritable mood
[2018-10-09] MEDS: ENOXAPARIN INJ 40 MG/0.4 ML SYR SQ SCH (21:21)
[2018-10-10] MEDS: ASPIRIN 81 MG CHEW PO SCH (12:01)
[2018-10-10] MEDS: THIAMINE HCL 100 MG TAB PO SCH (12:02)
[2018-10-10] MEDS: OLANZAPINE ZYDIS 5 MG ORALLY DIS. TAB PO SCH ×3 (12:02→21:07)
[2018-10-10] MEDS: AMLODIPINE BESYLATE 5 MG TAB PO SCH (12:03)
--- NOTE | 2018-10-10 18:15 | Hospitalist Progress Note ---
Date of Service October 10, 2018 Assessment & Plan (1) Dementia: Patient admitted on 08/14/2018 due to increased agitation and combative behavior at home. Patient was diagnosed with dementia 8 years ago which has progressively worsened. Patient was brought in on 302 warrant for evaluation w hich has since been disposed as his behavior is best explained by his dementia and not a primary psychiatry diagnosis. 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 Folic acid and TSH normal. B12 borderline low- supplement. B1 low- supplement -Started antiplatelet therapy with aspirin this admission. Continues to have episodes of agitation / shouting, but responds to his needs being addressed. Continue with behavioral managementenHortors Space[employer], company, [employer] Patient has been calm and cooperative for the past 1 week as per nursing Will need transition to long-term care possible dementia unit -Awaiting placement (2) HTN (hypertension): BP has been stable -Continue amlodipine. (3) COPD (chronic obstructive pulmonary disease): -Pulmonary status stable. (4) Do not resuscitate status: --Code status DNR as instructed by family. (5) DVT prophylaxis: SQ enoxaparin. Consider discontinuation -Ambulate. (6) Discharge planning issues: Family no longer able to take care of the patient at home. Case Management consulted to assist with management; waiting for accepting facility. Family Medicine follow-up with Dr. Billings. Subjective Status remains unchanged, advanced dementia, Remains confused, oriented to person only Unable to follow command, Per nursing patient has been cooperative, no agitation combativeness or behavioral disturbance noted in the past few days Awaiting for placement Physical Exam Constitutional: + ill appearing; no acute distress Eyes: + anicteric sclerae Respiratory: no respiratory distress and no cough Cardiovascular: RRR, no murmur, no edema Gastrointestinal (Abdomen): Percussion/Palpation: abdomen soft; abdomen nontender Neurologic: moves all extremities; no focal motor deficits Psychiatric: Advanced dementia, oriented to person only
[2018-10-10] MEDS: ENOXAPARIN INJ 40 MG/0.4 ML SYR SQ SCH (21:07)
[2018-10-11] MEDS: OLANZAPINE ZYDIS 5 MG ORALLY DIS. TAB PO SCH ×2 (09:09→12:09)
[2018-10-11] MEDS: THIAMINE HCL 100 MG TAB PO SCH (09:09)
[2018-10-11] MEDS: ASPIRIN 81 MG CHEW PO SCH (09:10)
--- NOTE | 2018-10-11 10:14 | Discharge Summary ---
Date of Service October 11, 2018 Admission HPI Per Admitting Provider Michael Gillespie is an 82-year-old male admitted medially on 08/14/18 due to increased agitation at home. It is reported that the patient had become combative and made verbal threats to harm the after he was incontinent in various areas around the house. Pt's reportedly felt unsafe with the patient's behavior and had called [facility], which issued a 302 warrant to bring the patient in for mental health evaluation. Upon presentation to the ED, it is reported that the patient had expressed desire for "someone to kill him." Pt does have a diagnosis of dementia, which is reported to be progressively worsening for the past 8 years. Agitation at home has begun in the last month and he has been more combative with his , who continues to care for his needs within their home. Per H&P, there is no known history of any psychiatric treatment. There is no reported history of inpatient psychiatric treatment. Psychiatric consultation is requested for recommendations regarding his agitation. QTc is 497 (08/14/18) and 518 (08/15/18). Home dose of risperidone 0.25mg BID has been continued. Haloperidol prn is ordered as well for acute agitation. 302 petitioning statement was completed by the patient's - warrant issued by [facility] as felt unsafe with patient's agitated behavior. 302 petition is difficult to read, per industrial hygiene manager it states: Michael has changed (to scare me) but doesn't slap me. He messes his pants won't do anything. I can't get him to let me help. At nights 4 times a wk. he yells, throws pillows and say he'll cut my head off--the he tears the bed apart and I go to sleep (?sofa). Now when I say he did these things it is worse--threats are not going. This man, my quickly got mean so I need some help to help me feel safe. He won't hit me. Ok--we are OK--No we are not wanting to see him feel better. Threats are not scared but his condition changes abruptly. I need some intelligence to help me and Michael. He is my . I love him. Angelique agitation has increased, threatened and I feel unsafe with him. This is so sad for me! At time of this provider's assessment, the patient appears to be seated comfortably in a bed-side chair, eating his lunch. Pt was ordered a safety try, and is eating with assistance from his COUNCIL ON AGING DIRECTOR. Pt does not appear irritable or agitated at this time. Pt only minimally participates in conversation with this provider, only responding with "yes", "no", "good", "fine", and "thank you." Pt was asked if he was experiencing any discomfort and safety concerns - which he denied. Pt denied thought to harm himself or others. He denies any current irritable or angry thoughts. Pt denies other questions at this time. MARYCARMEN, who has been with patient for the morning, states he was a bit irritable earlier today - refusing breakfast and spitting some food on her. He was reportedly unwilling to utilize a bed-side urinal, and has been walking to the bathroom with assistance from COUNCIL ON AGING DIRECTOR and rolling walker. Pt did not verbalize any present concerns. Principal Diagnosis Advanced dementia Alzheimer's type Discharge Exam Constitutional + ill appearing; no acute distress Eyes + anicteric sclerae Respiratory no respiratory distress and no cough Cardiovascular RRR, no murmur, no edema Gastrointestinal (Abdomen) Percussion/Palpation: abdomen soft; abdomen nontender Neurologic moves all extremities; no focal motor deficits Psychiatric Mood: + anxious mood and + irritable mood Discharge Data Allergies Allergy/AdvReac Type Severity Reaction Status Date / Time barley Allergy Severe ANAPHYLAXIS Verified 08/14/18 20:23 donepezil Allergy Unknown Unknown Verified 08/14/18 20:23 Consultations 08/14/18 21:38 ED Decision to Admit Stat 08/14/18 23:42 Consult Case Management - Discharge Planning Routine 08/15/18 08:00 Consult Psychiatry Routine 08/16/18 11:31 Consult Cardiology Routine Ordered Studies 08/14/18 18:37 CT head/brain wo con Stat Hospital Course (1) Dementia: Patient admitted on 08/14/2018 due to increased agitation and combative behavior at home. Patient was diagnosed with dementia 8 years ago which has progressively worsened. Patient was brought in on 302 warrant for evaluation which has since been disposed as his behavior is best explained by his dementia and not a primary psychiatry diagnosis. 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 Folic acid and TSH normal. B12 borderline low- supplement. B1 low- supplement -Started antiplatelet therapy with aspirin this admission. Continues to have episodes of agitation / shouting, but responds to his needs being addressed. Continue with behavioral managementenjoys music, company, cookies Patient has been calm and cooperative for the past 1 week as per nursing Will need transition to long-term care possible dementia unit Patient is accepted at [facility] Transferred to [facility] today Patient will need lab work: CBC to be checked monthly to assess for possible granulocytosis/neutropenia: While taking p.o.: Zyprexa(high risk related to adverse effect) (2) COPD (chronic obstructive pulmonary disease): -Pulmonary status stable. (3) Do not resuscitate status: --Code status DNR as instructed by family. (4) DVT prophylaxis: -Ambulate. (5) Discharge planning issues: Family no longer able to take care of the patient at home. Patient is accepted at [facility], medically stable to be transferred to assisted Total Time Total Time Spent Total Time Spent (In Minutes): Approximately 35 minutes Total Time Includes: Examination of the Patient, Discharge Planning and Medication Reconciliation Discharge Plan Discharge Items Patient Disposition: Trans Resident Long-Term Care Reason For Visit: WORSENING DEMENTIA WITH AGITATION Discharge Diagnosis: Progressive Dementia COPD HTN OA HLD Anxiety Incontinent of Urine and Stool Condition: Fair Discharge Goals: Improve function Activity: As commented below Activity Comment: Fall Risk Lifting: None Bathing: No limitations Weightbearing: Left weightbearing and Right weightbearing Non-emergency contact: Primary Care Provider and Psychiatrist Call non-emergency contact if: you have any medication questions Diet: Regular Addtl Provider Instructions: Will need blood work: CBC once a month: For assessment of neutropenia: As patient is on Zyprexa/olanzapine Prescriptions: New cyanocobalamin (vitamin B-12) 100 mcg Tablet 100 mcg PO QAM 30 Days Qty: 30 RF: 0 sennosides-docusate sodium [Senokot-S] 8.6-50 mg Tablet 1 tab PO BID PRN (Reason: constipation) 30 Days Qty: 60 RF: 0 thiamine HCl (vitamin B1) [Vitamin B-1] 100 mg Tablet 100 mg PO QAM 30 Days Qty: 30 RF: 0 olanzapine 5 mg Tablet,Disintegrating 2.5 mg PO TID 30 Days Qty: 45 RF: 0 aspirin 81 mg Tablet,Chewable 81 mg PO DAILY 30 Days Qty: 30 RF: 0 Discontinued risperidone 1 mg/mL Solution 0.25 mg PO BID RF: 0 Stand-Alone Forms: [facility] Discharge Orders: Discharge Order (Routine); Ordered 10/11/18 Ordered By: Jo Ann Cuevas Admission Data Admit Date/Time: 08/14/18 22:27 Attending Provider: Jo Ann Cuevas Admit Provider: Juan A Stahl Primary Care Provider: Zev Billings Other Providers: Juan A Stahl ; Rashmi Tomas ; Toi Munson ; Brenton Lin ; Zev Mojica ; Arianna Wallace ; Brenton Saldivar Service: Medical Other Pending Studies at Discharge: No
[2018-10-11 10:25] LABS: Basophils # (auto) 0.05 K/uL (0-0.2); Basophils % (auto) 0.7 %; Eosinophils # (auto) 0.21 K/uL (0-0.5); Eosinophils % (auto) 2.9 %; Hematocrit (blood only) 36.2 % (42-52); Hemoglobin 12.2 g/dL (14.0-18.0); Immature Granulocytes # (auto) 0.04 K/uL (0.00-0.02); Immature Granulocytes % (auto) 0.6 %; Lymphocytes # (auto) 1.35 K/uL (1.2-3.4); Lymphocytes % (auto) 18.6 %; Mean Corpuscular Hgb Conc 33.7 g/dL (32-36); Mean Corpuscular Volume 84.8 fL (80-100); Mean Platelet Volume 10.8 fL (7.4-10.4); Monocytes # (auto) 0.78 K/uL (0.11-0.59); Monocytes % (auto) 10.8 %; Neutrophils # (auto) 4.81 K/uL (1.4-6.5); Neutrophils % (auto) 66.4 %; Platelet Count 207 K/uL (130-400); RDW Coefficient of Variation 15.3 % (11.5-14.5); Red Blood Count 4.27 M/uL (4.7-6.1); White Blood Count 7.24 K/uL (4.8-10.8)
[2018-10-11 10:57] LABS: BUN Creatinine Ratio 16.2 (10-20); Calcium 8.9 mg/dl (8.5-10.1); Creatinine Clr Calc Pharmacy 56.8 ml/min; Est GFR (African American) 77.1; Est GFR (Non-African American) 66.6
== END 2018-10-11 13:10 | DRG 57 ==
LOC: ED 18:35 → 4E 18:35 → SUATTDRO 22:27 → OBSVTOIN 22:40 → 4E 23:25 → 2W 08-22 07:34 → 2N 08-25 22:06 → 2W 09-06 18:56
DX: Z79.899 Other long term (current) drug therapy; R15.9 Full incontinence of feces; F02.81 Dementia in other diseases classified elsewhere, unspecified severity, with behavioral disturbance; I73.9 Peripheral vascular disease, unspecified; I45.81 Long QT syndrome; E78.5 Hyperlipidemia, unspecified; R32 Unspecified urinary incontinence; T43.505A Adverse effect of unspecified antipsychotics and neuroleptics, initial encounter; F41.9 Anxiety disorder, unspecified; I10 Essential (primary) hypertension; G30.9 Alzheimer's disease, unspecified; J44.9 Chronic obstructive pulmonary disease, unspecified; Z66 Do not resuscitate; Z75.1 Person awaiting admission to adequate facility elsewhere